=== PATIENT | female | born 1940 | race Caucasian/White ===

== ENCOUNTER → 2016-05-07 | Outpatient (CLI) | payer MEDICARE ==
[~2016-05-07] MED LIST: AMLO10TA2 PO; AMLO10TA4 PO; ASCO500C14 PO; ASP325T; ASP81CT PO; ASPI-875 PO; ASPI-983 PO; ATOR20TA66 PO; ATR20T PO; CARV3.122 PO; CLOP75TA PO; FAMO-119 PO; GLIP10TA13 PO; ISOS10TA8 PO; LEVO112T55 PO; LEVO125T6 PO; LVT.112T PO; METF-380 PO; METF-479 PO; METF1000 PO; MTF500T PO; NITR0.4T39 SL; OMEP-10 PO; OMG1KC PO; PNT40TEC PO; PRAV80TA2 PO; PRV20T PO; TICA90TA PO; VALS1TAB12 PO; VALS1TAB4 PO; VALS1TAB74 PO; VALS1TAB80 PO; VALS320T8 PO
--- OUTSIDE RECORDS SUMMARY | 2016-05-07 07:58 | XMS REPORT | Continuity of Care Document ---
Author Author [facility] Organization [facility] Address Unknown Phone Unavailable Allergies Active Description Code Type Severity Reaction Onset Reported/Identified Relationship to Patient Clinical Status Yes No Known Drug Allergies [id number] Drug Allergy Unknown N/ A 05/02/2008 Yes lisinopril [id number] Drug Allergy Unknown PT STATED SHE D 11/28/2014 Medications Problems Date Dx Coded Attending Type Code Diagnosis Diagnosed By 12/19/2008 Ot 786.2 08/12/2009 Ot 530.11 11/13/2011 Ot 244.9 HYPOTHYROIDISM NOS 11/13/2011 Ot 250.00 DIAB SMILEY WO COMPL, TYPE II OR UNSPEC TY 11/13/2011 Ot 272.4 HYPERLIPIDEMIA NEC/NOS 11/13/2011 Ot 410.71 AC MYOCARDIAL INFARCT,SUBENDO INFARCT,IN 11/13/2011 Ot 414.01 CORONARY ATHEROSCLEROSIS OF [place] CORON 11/13/2011 Ot 433.10 CAROTID ARTERY OCCLUSION W O CEREBRAL IN 11/13/2011 Ot 530.81 ESOPHAGEAL REFLUX 11/13/2011 Ot V03.82 PROPHYLACTIC VACC AGAINST STREPTOCOCCUS 11/13/2011 Ot V12.79 PERSONAL HISTORY OTH SPEC DIGESTIVE SYST 06/16/2013 FRANCINE BURRELL, WILLIAM R Ot 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, EXTRANODAL SOLID ORGA 06/16/2013 WILLIAM ESCAMILLA MD R Ot 244.9 HYPOTHYROIDISM NOS 06/16/2013 FRANCINE BURRELL, WILLIAM R Ot 368.8 VISUAL DISTURBANCES NEC 06/16/2013 FRANCINE BURRELL, WILLIAM R Ot 435.9 TRANS CEREB ISCHEMIA NOS 06/16/2013 WILLIAM ESCAMILLA MD Ot 716.90 ARTHROPATHY NOS-UNSPEC 06/16/2013 WILLIAM ESCAMILLA MD Ot 784.59 OTHER SPEECH DISTURBANCE 06/16/2013 WILLIAM ESCAMILLA MD R Ot V03.82 PROPHYLACTIC VACC AGAINST STREPTOCOCCUS 06/16/2013 WILLIAM ESCAMILLA MD R Ot V15.82 HISTORY OF TOBACCO USE 02/28/2014 Ot 786.2 02/28/2014 Ot 553.3 02/28/2014 Ot 562.10 02/28/2014 Ot 587 02/28/2014 Ot 790.6 02/28/2014 Ot 577.0 02/28/2014 Ot 401.9 02/28/2014 Ot 416.8 02/28/2014 Ot 698.9 02/28/2014 Ot 729.5 02/28/2014 Ot 729.81 02/28/2014 Ot 719.46 02/28/2014 ELIN BUI Ot 401.9 02/28/2014 ELIN BUI Ot 414.00 02/28/2014 ELIN BUI Ot 416.8 03/01/2014 FRANCINE BURRELL, WILLIAM R Ot 729.5 03/28/2014 FRANCINE BURRELL, WILLIAM R Ot 729.5 06/22/2014 FRANCINE BURRELL, WILLIAM R Ot 348.89 06/22/2014 FRANCINE BURRELL, WILLIAM R Ot 433.10 06/28/2014 Ot 784.0 07/06/2014 Ot 784.0 07/13/2014 FRANCINE BURRELL, WILLIAM R Ot 348.89 07/13/2014 FRANCINE BURRELL, WILLIAM R Ot 433.10 07/23/2014 FRANCINE BURRELL, WILLIAM R Ot 348.89 07/23/2014 FRANCINE BURRELL, WILLIAM R Ot 433.10 08/27/2014 EDOUARD BURRELL, PAULA Parrish Ot 272.4 08/27/2014 EDOUARD BURRELL, PAULA Parrish Ot 401.9 08/27/2014 EDOUARD BURRELL, PAULA Parrish Ot 414.00 08/27/2014 EDOUARD BURRELL, PAULA Parrish Ot 786.50 09/11/2014 EDOUARD BURRELL, PAULA Parrish Ot 272.4 09/11/2014 EDOUARD BURRELL, PAULA Parrish Ot 401.9 09/11/2014 EDOUARD BURRELL, PAULA Parrish Ot 414.00 09/11/2014 EDOUARD BURRELL, PAULA Parrish Ot 786.50 11/06/2014 LUCINDA BURRELL, DONATO Garrison Ot 244.9 HYPOTHYROIDISM NOS 11/06/2014 LUCINDA BURRELL, DONATO Garrison Ot 250.00 DIAB SMILEY WO COMPL, TYPE II OR UNSPEC TY 11/06/2014 LUCINDA BURRELL, DONATO Garrison Ot 414.00 CORON ATHEROSCLER NOS TYPE VESSEL, NATIV 11/06/2014 LUCINDA BURRELL, DONATO Garrison Ot 593.9 RENAL URETERAL DIS NOS 11/06/2014 LUCINDA BURRELL, DONATO Garrison Ot 719.41 JOINT PAIN-SHLDER 11/06/2014 DONATO JANE MD Ot 724.5 BACKACHE NOS 11/06/2014 LUCINDA BURRELL, DONATO Garrison Ot 786.50 CHEST PAIN NOS 11/06/2014 LUCINDA BURRELL, DONATO Garrison Ot V58.69 OTH MED,LT,CURRENT USE 11/23/2014 FRANCINE BURRELL, WILLIAM Garcia Ot 433.10 11/23/2014 FRANCINE BURRELL, WILLIAM R Ot 433.30 11/23/2014 FRANCINE BURRELL, WILLIAM R Ot 780.79 11/23/2014 FRANCINE BURRELL, WILLIAM R Ot 780.79 11/28/2014 Ot 553.3 11/28/2014 Ot 562.10 11/28/2014 Ot 587 11/28/2014 Ot 790.6 11/28/2014 Ot 577.0 11/28/2014 Ot 401.9 11/28/2014 Ot 416.8 11/28/2014 Ot 698.9 11/28/2014 Ot 729.5 11/28/2014 Ot 729.81 11/28/2014 Ot 719.46 11/28/2014 ELIN BUI Ot 401.9 11/28/2014 ELIN BUI Ot 414.00 11/28/2014 ELIN BUI Ot 416.8 11/28/2014 FRANCINE BURRELL, WILLIAM R Ot 729.5 11/28/2014 Ot 784.0 11/28/2014 FRANCINE BURRELL, WILLIAM R Ot 348.89 11/28/2014 FRANCINE BURRELL, WILLIAM R Ot 433.10 11/28/2014 EDOUARD BURRELL, PAULA Parrish Ot 272.4 11/28/2014 EDOUARD BURRELL, PAULA Parrish Ot 401.9 11/28/2014 EDOUARD BURRELL, PAULA Parrish Ot 414.00 11/28/2014 PAULA NUNN MD Ot 786.50 11/28/2014 WILLIAM ESCAMILLA MD R Ot 433.10 11/28/2014 WILLIAM ESCAMILLA MD R Ot 433.30 11/28/2014 FRANCINE BURERLL WILLIAM R Ot 780.79 11/28/2014 FRANCINE BURRELL, WILLIAM R Ot 780.79 11/28/2014 PAULA NUNN MD Ot 244.9 HYPOTHYROIDISM NOS 11/28/2014 PAULA NUNN MD Ot 250.00 DIAB SMILEY WO COMPL, TYPE II OR UNSPEC TY 11/28/2014 PAULA NUNN MD Ot 272.4 HYPERLIPIDEMIA NEC/NOS 11/28/2014 PAULA NUNN MD Ot 401.9 HYPERTENSION NOS 11/28/2014 PAULA NUNN MD Ot 414.01 CORONARY ATHEROSCLEROSIS OF [place] CORON 11/28/2014 PAULA NUNN MD Ot 786.50 CHEST PAIN NOS 11/28/2014 PAULA NUNN MD Ot V58.69 OT MED,LT,CURRENT USE 11/29/2014 WILLIAM ESCAMILLA MD R Ot 433.10 11/29/2014 WILLIAM ESCAMILLA MD R Ot 433.30 11/29/2014 WILLIAM ESCAMILLA MD R Ot 780.79 11/29/2014 WILLIAM ESCAMILLA MD R Ot 780.79 02/04/2015 Ot 401.9 02/04/2015 Ot 416.8 02/04/2015 Ot 698.9 02/04/2015 Ot 729.5 02/04/2015 Ot 729.81 02/04/2015 Ot 719.46 02/04/2015 ELIN BUI Ot 401.9 02/04/2015 ELIN BUI Ot 414.00 02/04/2015 ELIN BUI Ot 416.8 02/04/2015 WILLIAM ESCAMILLA MD R Ot 729.5 02/04/2015 Ot 784.0 02/04/2015 WILLIAM ESCAMILLA MD R Ot 348.89 02/04/2015 WILLIAM ESCAMILLA MD R Ot 433.10 02/04/2015 PAULA NUNN MD Ot 272.4 02/04/2015 PAULA NUNN MD Ot 401.9 02/04/2015 PAULA NUNN MD J Ot 414.00 02/04/2015 EDOUARD BURRELL, PAULA J Ot 786.50 02/04/2015 FRANCINE BURRELL, WILLIAM R Ot 433.10 02/04/2015 FRANCINE BURRELL, WILLIAM R Ot 433.30 02/04/2015 FRANCINE BURRELL, WILLIAM R Ot 780.79 02/04/2015 FRANCINE BURRELL, WILLIAM R Ot 780.79 03/11/2015 Ot 401.9 03/11/2015 Ot 416.8 03/11/2015 Ot 698.9 03/11/2015 Ot 729.5 03/11/2015 Ot 729.81 03/11/2015 Ot 719.46 03/11/2015 ELIN BUI Ot 401.9 03/11/2015 ELIN BUI Ot 414.00 03/11/2015 ELIN BUI Ot 416.8 03/11/2015 FRANCINE BURRELL, WILLIAM R Ot 729.5 03/11/2015 Ot 784.0 03/11/2015 FRANCINE BURRELL, WILLIAM R Ot 348.89 03/11/2015 FRANCINE BURRELL, WILLIAM R Ot 433.10 03/11/2015 PAULA NUNN MD Ot 272.4 03/11/2015 EDOUARD BURRELL, PAULA Parrish Ot 401.9 03/11/2015 EDOUARD BURRELL, PAULA J Ot 414.00 03/11/2015 EDOUARD BURRELL, PAULA J Ot 786.50 03/11/2015 FRANCINE BURRELL, WILLIAM R Ot 433.10 03/11/2015 FRANCINE BURRELL, WILLIAM R Ot 433.30 03/11/2015 FRANCINE BURRELL, WILLIAM R Ot 780.79 03/11/2015 FRANCINE BURRELL, WILLIAM R Ot 780.79 04/03/2015 FRANCINE BURRELL, WILLIAM R Ot R05 04/04/2015 FRANCINE BURRELL, WILLIAM R Ot R05 05/20/2015 PAULA NUNN MD Ot E03.9 HYPOTHYROIDISM, UNSPECIFIED 05/20/2015 EDOUARD BURRELL, PAULA Parrish Ot E11.9 TYPE 2 DIABETES MELLITUS WITHOUT COMPLIC 05/20/2015 PAULA NUNN MD Ot E78.5 HYPERLIPIDEMIA, UNSPECIFIED 05/20/2015 PAULA NUNN MD Ot E87.1 HYPO-OSMOLALITY AND HYPONATREMIA 05/20/2015 PAULA NUNN MD Ot I10 ESSENTIAL (PRIMARY) HYPERTENSION 05/20/2015 PAULA NUNN MD Ot I21.4 NON-ST ELEVATION (NSTEMI) MYOCARDIAL INF 05/20/2015 PAULA NUNN MD Ot I25.110 ATHSCL HEART DISEASE OF [place] COR ART W 05/20/2015 PAULA NUNN MD Ot I46.2 CARDIAC ARREST DUE TO UNDERLYING CARDIAC 05/20/2015 PAULA NUNN MD Ot I47.2 VENTRICULAR TACHYCARDIA 05/20/2015 PAULA NUNN MD Ot I48.91 UNSPECIFIED ATRIAL FIBRILLATION 05/20/2015 PAULA NUNN MD Ot I49.01 VENTRICULAR FIBRILLATION 05/20/2015 PAULA NUNN MD Ot I65.23 OCCLUSION AND STENOSIS OF [place] 05/20/2015 PAULA NUNN MD Ot K21.9 GASTRO-ESOPHAGEAL REFLUX DISEASE WITHOUT 05/20/2015 PAULA NUNN MD Ot N17.9 ACUTE KIDNEY FAILURE, UNSPECIFIED 05/27/2015 Ot 401.9 05/27/2015 Ot 416.8 05/27/2015 Ot 698.9 05/27/2015 Ot 729.5 05/27/2015 Ot 729.81 05/27/2015 Ot 719.46 05/27/2015 ELIN BUI Ot 401.9 05/27/2015 ELIN BUI Ot 414.00 05/27/2015 ELIN BUI Ot 416.8 05/27/2015 WILLIAM ESCAMILLA MD R Ot 729.5 05/27/2015 Ot 784.0 05/27/2015 FRANCINE BURRELL, WILLIAM R Ot 348.89 05/27/2015 FRANCINE BURRELL, WILLIAM R Ot 433.10 05/27/2015 PAULA NUNN MD Ot 272.4 05/27/2015 PAULA NUNN MD Ot 401.9 05/27/2015 PAULA NUNN MD Ot 414.00 05/27/2015 PAULA NUNN MD Ot 786.50 05/27/2015 WILLIAM ESCAMILLA MD R Ot 433.10 05/27/2015 FRANCINE BURRELL, WILLIAM R Ot 433.30 05/27/2015 FRANCINE BURRELL, WILLIAM R Ot 780.79 05/27/2015 FRANCINE BURRELL, WILLIAM R Ot 780.79 05/27/2015 FRANCINE BURRELL, WILLIAM R Ot R05 06/12/2015 EDOUARD BURRELL, PAULA Parrish Ot E03.9 06/12/2015 EDOUARD BURRELL, PAULA Parrish Ot E11.9 06/12/2015 EDOUARD BURRELL, PAULA Parrish Ot E78.5 06/12/2015 EDOUARD BURRELL, PAULA Parrish Ot E87.1 06/12/2015 EDOUARD BURRELL, PAULA Parrish Ot I10 06/12/2015 EDOUARD BURRELL, PAULA Parrish Ot I21.4 06/12/2015 EDOUARD BURRELL, PAULA Parrish Ot I25.110 06/12/2015 PAULA NUNN MD Ot I46.2 06/12/2015 PAULA NUNN MD Ot I47.2 06/12/2015 PAULA NUNN MD Ot I48.91 06/12/2015 PAULA NUNN MD Ot I49.01 06/12/2015 EDOUARD BURRELL, PAULA Parrish Ot I65.23 06/12/2015 PAULA NUNN MD Ot K21.9 06/12/2015 EDOAURD BURRELL, PAULA Parrish Ot N17.9 06/18/2015 STEVIE LOZANO DO Ot E66.9 06/18/2015 STEVIE LOZANO DO Ot R05 06/26/2015 STEVIE LOZANO DO Ot E66.9 06/26/2015 STEVIE LOZANO DO Ot R05 03/26/2016 Ot 698.9 PRURITIC DISORDER NOS 03/26/2016 Ot 729.5 PAIN IN LIMB 03/26/2016 Ot 729.81 SWELLING OF LIMB 03/26/2016 Ot 719.46 JOINT PAIN-L/LEG 03/26/2016 ELIN BUI Ot 401.9 HYPERTENSION NOS 03/26/2016 ELIN BUI Ot 414.00 CORON ATHEROSCLER NOS TYPE VESSEL, NATIV 03/26/2016 ELIN BUI Ot 416.8 CHR PULMON HEART DIS NEC 03/26/2016 WILLIAM ESCAMILLA MD Ot 729.5 PAIN IN LIMB 03/26/2016 Ot 784.0 HEADACHE 03/26/2016 WILLIAM ESCAMILLA MD Ot 348.89 OTHER CONDITIONS OF BRAIN 03/26/2016 WILLIAM ESCAMILLA MD Ot 433.10 CAROTID ARTERY OCCLUSION W O CEREBRAL IN 03/26/2016 PAULA NUNN MD Ot 272.4 HYPERLIPIDEMIA NEC/NOS 03/26/2016 PAULA NUNN MD Ot 401.9 HYPERTENSION NOS 03/26/2016 PAULA NUNN MD Ot 414.00 CORON ATHEROSCLER NOS TYPE VESSEL, NATIV 03/26/2016 PAULA NUNN MD Ot 786.50 CHEST PAIN NOS 03/26/2016 WILLIAM ESCAMILLA MD Ot 433.10 CAROTID ARTERY OCCLUSION W O CEREBRAL IN 03/26/2016 WILLIAM ESCAMILLA MD Ot 433.30 MULT BILTRAL ARTERY OCCLUSION WO CEREBRA 03/26/2016 WILLIAM ESCAMILLA MD Ot 780.79 OTH MALAISE FATIGUE 03/26/2016 WILLIAM ESCAMILLA MD Ot 780.79 OTH MALAISE FATIGUE 03/26/2016 WILLIAM ESCAMILLA MD Ot R05 COUGH 03/26/2016 STEVIE LOZANO DO Ot E66.9 OBESITY, UNSPECIFIED 03/26/2016 STEVIE LOZANO DO Ot R05 COUGH 03/27/2016 Ot 698.9 PRURITIC DISORDER NOS 03/27/2016 Ot 729.5 PAIN IN LIMB 03/27/2016 Ot 729.81 SWELLING OF LIMB 03/27/2016 Ot 719.46 JOINT PAIN-L/LEG 03/27/2016 ELIN BUI Ot 401.9 HYPERTENSION NOS 03/27/2016 ELIN BUI Ot 414.00 CORON ATHEROSCLER NOS TYPE VESSEL, NATIV 03/27/2016 ELNI BUI Ot 416.8 CHR PULMON HEART DIS NEC 03/27/2016 WILLIAM ESCAMILLA MD Ot 729.5 PAIN IN LIMB 03/27/2016 Ot 784.0 HEADACHE 03/27/2016 WILLIAM ESCAMILLA MD Ot 348.89 OTHER CONDITIONS OF BRAIN 03/27/2016 SEGLIE MD, WILLIAM R Ot 433.10 CAROTID ARTERY OCCLUSION W O CEREBRAL IN 03/27/2016 PAULA NUNN MD Ot 272.4 HYPERLIPIDEMIA NEC/NOS 03/27/2016 PAULA NUNN MD Ot 401.9 HYPERTENSION NOS 03/27/2016 PAULA NUNN MD Ot 414.00 CORON ATHEROSCLER NOS TYPE VESSEL, NATIV 03/27/2016 PAULA NUNN MD Ot 786.50 CHEST PAIN NOS 03/27/2016 WILLIAM ESCAMILLA MD R Ot 433.10 CAROTID ARTERY OCCLUSION W O CEREBRAL IN 03/27/2016 WILLIAM ESCAMILLA MD Ot 433.30 MULT BILTRAL ARTERY OCCLUSION WO CEREBRA 03/27/2016 WILLIAM ESCAMILLA MD Ot 780.79 OTH MALAISE FATIGUE 03/27/2016 WILLIAM ESCAMILLA MD Ot 780.79 OTH MALAISE FATIGUE 03/27/2016 WILLIAM ESCAMILLA MD R Ot R05 COUGH 03/27/2016 STEVIE LOZANO DO Ot E66.9 OBESITY, UNSPECIFIED 03/27/2016 STEVIE LOZANO DO Ot R05 COUGH 03/27/2016 WILLIAM ESCAMILLA MD R Ot E03.9 HYPOTHYROIDISM, UNSPECIFIED 03/27/2016 WILLIAM ESCAMILLA MD R Ot E03.9 HYPOTHYROIDISM, UNSPECIFIED 03/30/2016 WILLIAM ESCAMILLA MD R Ot R10.2 PELVIC AND PERINEAL PAIN 04/01/2016 WILLIAM ESCAMILLA MD R Ot E03.9 HYPOTHYROIDISM, UNSPECIFIED 04/01/2016 WILLIAM ESCAMILLA MD R Ot R10.2 PELVIC AND PERINEAL PAIN 04/16/2016 WILLIAM ESCAMILLA MD R Ot E03.9 HYPOTHYROIDISM, UNSPECIFIED 04/20/2016 WILLIAM ESCAMILLA MD R Ot R10.2 PELVIC AND PERINEAL PAIN 04/22/2016 WILLIAM ESCAMILLA MD Ot R10.2 PELVIC AND PERINEAL PAIN Procedures Code Description Performed By Performed On 88.53 LT HEART ANGIOCARDIOGRAM 11/12/2011 88.56 CORONAR ARTERIOGR-2 CATH 11/12/2011 [id number] DILATION OF 1 COR ART WITH DRUG-ELUT INT 05/17/2015 [id number] MEASURE OF CARDIAC SAMPL PRESSURE, L H 05/17/2015 [id number] FLUOROSCOPY OF MULT COR ART USING L OSM 05/17/2015 [id number] FLUOROSCOPY OF LEFT HEART USING LOW OSMO 05/17/2015 Results Test Result Range THYROID STIMULATING HORMONE - 03/26/16 12:50 THYROID STIMULATING HORMONE 1.11 u[iU]/mL 0.35-4.94 Encounters ACCT No. Visit Date/Time Discharge Status Pt. Type Provider Facility Loc./Unit Complaint [id number] 05/17/2015 14:14:00 2015 11:20:00 DIS Inpatient PAULA NUNN MD [facility] CSD CARDIAC ARREST, VENTRICULAR FIBRILLATION [id number] 11/28/2014 10:41:00 2014 20:45:00 DIS Outpatient PAULA NUNN MD [facility] CATH CP,HTN,HLP [id number] 11/06/2014 14:26:00 2014 17:07:00 DIS Emergency DONATO JANE MD [facility] ER CHEST/BACK/LEFT ARM PAIN [id number] 10/31/2014 08:24:00 2014 23:59:59 CLS Outpatient WILLIAM ESCAMILLA MD [facility] RAD SUDDEN ONSET MASSIVE FATIGUE [id number] 10/30/2014 08:52:00 2014 23:59:59 CLS Outpatient WILLIAM ESCAMILLA MD [facility] CARD SUDDEN ONSET MASSIVE FATIGUE [id number] 07/30/2014 07:41:00 2014 23:59:59 CLS Outpatient PAULA NUNN MD [facility] CARD CAD,CP,HTN [id number] 06/20/2014 10:59:00 2014 23:59:59 CLS Outpatient WILLIAM ESCAMILLA MD [facility] RAD [id number] 02/28/2014 14:10:00 2013 23:59:59 CLS Outpatient WILLIAM ESCAMILLA MD [facility] RAD SUDDEN ONSET LT INGUAL AND FEMORAL IGUNAL AREA [id number] 08/22/2013 08:38:00 2013 23:59:59 CLS Outpatient TAWNY PA, ELIN K [facility] CARD CAD,DM,HLP,HTN [id number] 06/13/2013 19:45:00 2013 10:33:00 DIS Inpatient FRANCINE BURRELL, WILLIAM Garcia [facility] 4TH TIA [id number] 05/07/2016 07:54:00 ACT Outpatient EDOUARD BURRELL, PAULA Parrish [facility] CARD CAD,HTN,HLP [id number] 03/27/2016 12:19:00 ACT Outpatient FRANCINE BURRELL, WILLIAM Garcia [facility] RAD PELVIC PAIN IN FEMALE [id number] 03/26/2016 12:39:00 ACT Outpatient WILLIAM ESCAMILLA MD [facility] LAB PELVIC PAIN [id number] 05/27/2015 09:20:00 ACT Outpatient STEVIE LOZANO DO [facility] RAD COUGHING [id number] 03/11/2015 10:31:00 ACT Outpatient WILLIAM ESCAMILLA MD [facility] RAD COUGH [id number] 06/13/2014 10:42:00 Document Registration [id number] 02/28/2014 14:12:00 Document Registration [id number] 02/28/2014 14:09:00 Document Registration [id number] 02/28/2014 14:09:00 Document Registration [id number] 11/12/2011 13:45:00 Document Registration [id number] 08/03/2011 07:59:00 Document Registration [id number] 06/24/2011 12:38:00 Document Registration [id number] 02/16/2011 15:02:00 Document Registration [id number] 08/28/2010 13:22:00 Document Registration [id number] 08/14/2009 09:57:00 Document Registration [id number] 08/12/2009 11:32:00 Document Registration [id number] 07/31/2009 15:02:00 Document Registration [id number] 12/18/2008 15:00:00 Document Registration [id number] 12/18/2008 10:22:00 Document Registration
--- NOTE | 2016-05-08 10:23 | ECHOCARDIOGRAPHY REPORT ---
PROCEDURE PHYSICIAN: PAULA NUNN DATE OF PROCEDURE: 05/07/2016 TWO DIMENSIONAL ECHOCARDIOGRAM REPORT PRIMARY PHYSICIAN: OTHER PHYSICIAN: REFERRING PHYSICIAN: Dr. Ashley ORDERING PHYSICIAN: INDICATION FOR THE PROCEDURE: Coronary artery disease, hypertension MEASUREMENTS DERIVED VALUES LV DIAMETER (LAX) NORMALS NORMALS Diastolic 5.1 (3.6-5.2) Eject. Fract. 60% (60%+/-6%) Systolic (2.3-3.9) Diastolic Vol. % Shortening (0.22-0.42) Systolic Vol. Aortic Root IVS THICKNESS Diastolic 1. (0.6-1.1) LVPW THICKNESS Diastolic 1. (0.6-1.1) LA DIAMETER Systolic 3.1 (2.1-3.7) FINDINGS: 1. Technical quality is good. 2. The left ventricle is normal in size with normal contractility. Systolic function appeared to be normal. Estimated ejection fraction 60%. 3. The left atrium is normal in size. No clot or thrombus were seen within the left atrium. 4. The right atrium and right ventricle are normal in size. No clot or thrombus were seen within the right side. 5. Mitral valve is normal in morphology with mild mitral regurgitation noted by color Doppler flow. No mitral valve prolapse. No mitral valve stenosis. 6. Aortic valve is trileaflet with normal opening and closing pattern. No significant aortic valve stenosis or regurgitation was seen. 7. Tricuspid valve is normal in morphology with mild tricuspid regurgitation noted by color Doppler flow. Doppler across tricuspid valve estimated pulmonary artery pressure of 35+ right atrial pressure. 8. Pulmonic valve is functioning normally. 9. No pericardial effusion. CONCLUSION: 1. Normal left ventricular size and systolic function. Estimated ejection fraction 60%. 2. Mild mitral and tricuspid regurgitation. 3. Estimated pulmonary artery pressure of 40 to 45 mmHg Job ID: [id number] Dictated Date: 05/07/2016 19:18:59 Chief Librarian Work With Blind Date: 05/08/2016 10:19:06 / theodora
== END ==
LOC: CARD 07:54
PROVIDERS: ATTEND Internal Medicine Cardiovascular Disease
DX: I25.10 Atherosclerotic heart disease of native coronary artery without angina pectoris (principal); I65.23 Occlusion and stenosis of bilateral carotid arteries; E78.2 Mixed hyperlipidemia; I10 Essential (primary) hypertension; I27.2 Other secondary pulmonary hypertension
CPT/HCPCS: 93306

== ENCOUNTER → 2016-05-29 | Outpatient (CLI) | payer MEDICARE ==
--- OUTSIDE RECORDS SUMMARY | 2016-05-29 10:29 | XMS REPORT | Continuity of Care Document ---
Author Author [facility] Organization [facility] Address Unknown Phone Unavailable Allergies Active Description Code Type Severity Reaction Onset Reported/Identified Relationship to Patient Clinical Status Yes No Known Drug Allergies [id number] Drug Allergy Unknown N/ A 05/02/2008 Yes lisinopril [id number] Drug Allergy Unknown PT STATED SHE D 11/28/2014 Medications Problems Date Dx Coded Attending Type Code Diagnosis Diagnosed By 12/19/2008 Ot 786.2 08/12/2009 Ot 530.11 11/13/2011 Ot 244.9 HYPOTHYROIDISM NOS 11/13/2011 Ot 250.00 DIAB SMILEY WO COMPL, TYPE II OR UNSPEC TY 11/13/2011 Ot 272.4 HYPERLIPIDEMIA NEC/NOS 11/13/2011 Ot 410.71 AC MYOCARDIAL INFARCT,SUBENDO INFARCT,IN 11/13/2011 Ot 414.01 CORONARY ATHEROSCLEROSIS OF [place] CORON 11/13/2011 Ot 433.10 CAROTID ARTERY OCCLUSION [...] ESCAMILLA MD R Ot 433.30 11/28/2014 FRANCINE BURRELL WILLIAM R Ot 780.79 11/28/2014 FRANCINE BURRELL, WILLIAM R Ot 780.79 11/28/2014 PAULA NUNN MD Ot 244.9 HYPOTHYROIDISM NOS 11/28/2014 PAULA NUNN MD Ot 250.00 DIAB SMILEY WO COMPL, TYPE II OR UNSPEC TY 11/28/2014 PAULA NUNN MD Ot 272.4 HYPERLIPIDEMIA NEC/NOS 11/28/2014 PAULA NUNN MD Ot 401.9 HYPERTENSION NOS 11/28/2014 PAULA NUNN MD Ot 414.01 CORONARY ATHEROSCLEROSIS OF [place] CORON 11/28/2014 PAULA NUNN MD Ot 786.50 [...] MD Ot I25.110 ATHSCL HEART DISEASE OF [place] COR ART W 05/20/2015 PAULA NUNN MD [...] 06/12/2015 PAULA NUNN MD Ot K21.9 06/12/2015 EDOUARD BURRELL, PAULA Parrish Ot N17.9 06/18/2015 STEVIE [...] CORON ATHEROSCLER NOS TYPE VESSEL, NATIV 03/27/2016 ELIN BUI Ot 416.8 CHR PULMON HEART [...] O CEREBRAL IN 03/27/2016 WILLIAM ESCAMILLA MD R Ot 433.30 MULT BILTRAL ARTERY OCCLUSION WO CEREBRA 03/27/2016 WILLIAM ESCAMILLA MD R Ot 780.79 OTH MALAISE FATIGUE 03/27/2016 WILLIAM ESCAMILLA MD R Ot 780.79 OTH MALAISE FATIGUE 03/27/2016 WILLIAM [...] AND PERINEAL PAIN 04/22/2016 WILLIAM ESCAMILLA MD R Ot R10.2 PELVIC AND PERINEAL PAIN 05/08/2016 PAUAL NUNN MD Ot E78.2 MIXED HYPERLIPIDEMIA 05/08/2016 PAULA NUNN MD Ot I10 ESSENTIAL (PRIMARY) HYPERTENSION 05/08/2016 PAULA NUNN MD Ot I25.10 ATHSCL HEART DISEASE OF [place] CORONARY 05/08/2016 PAULA NUNN MD, Ot I27.2 OTHER SECONDARY PULMONARY HYPERTENSION 05/08/2016 PAULA NUNN MD Ot I65.23 OCCLUSION AND STENOSIS OF [place]AL [place] 05/08/2016 PAULA NUNN MD Ot E78.2 MIXED HYPERLIPIDEMIA 05/08/2016 PAULA NUNN MD Ot I10 ESSENTIAL (PRIMARY) HYPERTENSION 05/08/2016 PAULA NUNN MD Ot I25.10 ATHSCL HEART DISEASE OF [place] CORONARY 05/08/2016 PAULA NUNN MD, Ot I27.2 OTHER SECONDARY PULMONARY HYPERTENSION 05/08/2016 PAULA NUNN MD, Ot I65.23 OCCLUSION AND STENOSIS OF [place]AL [place] Procedures Code Description Performed By Performed On 88.53 LT HEART ANGIOCARDIOGRAM 11/12/2011 88.56 CORONAR ARTERIOGR-2 CATH 11/12/2011 [id number] DILATION OF 1 COR ART WITH DRUG-ELUT INT 05/17/2015 [id number] MEASURE OF CARDIAC SAMPL PRESSURE, L H 05/17/2015 [id number] FLUOROSCOPY OF MULT COR ART USING L OSM 05/17/2015 [id number] FLUOROSCOPY OF LEFT HEART USING LOW OSMO 05/17/2015 Results Test Result Range THYROID STIMULATING HORMONE - 03/26/16 12:50 THYROID STIMULATING HORMONE 1.11 u[iU]/mL 0.35-4.94 Encounters ACCT No. Visit Date/Time Discharge Status Pt. Type Provider Facility Loc./Unit Complaint [id number] 05/17/2015 14:14:00 2015 11:20:00 DIS Inpatient PAULA NUNN MD [facility] CSD CARDIAC ARREST, VENTRICULAR FIBRILLATION [id number] 11/28/2014 10:41:00 2014 20:45:00 DIS Outpatient PAULA NUNN MD [facility] CATH CP,HTN,HLP [id number] 11/06/2014 14:26:00 2014 17:07:00 DIS Emergency DONATO JANE MD [facility] ER CHEST/BACK/LEFT ARM PAIN [id number] 10/31/2014 08:24:00 2014 23:59:59 CLS Outpatient WILLIAM ESCAMILLA MD [facility] RAD SUDDEN ONSET MASSIVE FATIGUE [id number] 10/30/2014 08:52:00 2014 23:59:59 CLS Outpatient WILLIAM ESCAMILLA MD [facility] CARD SUDDEN ONSET MASSIVE FATIGUE [id number] 07/30/2014 07:41:00 2014 23:59:59 CLS Outpatient PAULA NUNN MD [facility] CARD CAD,CP,HTN [id number] 06/20/2014 10:59:00 2014 23:59:59 CLS Outpatient WILLIAM ESCAMILLA MD [facility] RAD [id number] 02/28/2014 14:10:00 2013 23:59:59 CLS Outpatient WILLIAM ESCAMILLA MD [facility] RAD SUDDEN ONSET LT INGUAL AND FEMORAL IGUNAL AREA [id number] 08/22/2013 08:38:00 2013 23:59:59 CLS Outpatient ELIN BUI [facility] CARD CAD,DM,HLP,HTN [id number] 06/13/2013 19:45:00 2013 10:33:00 DIS Inpatient WILLIAM ESCAMILLA MD [facility] 4TH TIA [id number] 05/29/2016 11:15:00 PEN Preadmit SIVAKUMAR SUTHERLAND APRN [facility] RAD LUNG NODULE [id number] 05/07/2016 07:54:00 ACT Outpatient PAULA NUNN MD [facility] CARD CAD,HTN,HLP [id number] 03/27/2016 12:19:00 ACT Outpatient WILLIAM ESCAMILLA MD [facility] RAD PELVIC PAIN IN FEMALE [id number] 03/26/2016 12:39:00 ACT Outpatient WILLIAM ESCAMILLA MD [facility] LAB PELVIC PAIN [id number] 05/27/2015 09:20:00 ACT Outpatient STEVIE LOZANO DO [facility] RAD COUGHING [id number] 03/11/2015 10:31:00 ACT Outpatient WILLIAM ESCAMILLA MD [facility] RAD COUGH [id number] 06/13/2014 10:42:00 Document Registration [id number] 02/28/2014 14:12:00 Document Registration [id number] 02/28/2014 14:09:00 Document Registration [id number] 02/28/2014 14:09:00 Document Registration [id number] 11/12/2011 13:45:00 Document Registration [id number] 08/03/2011 07:59:00 Document Registration [id number] 06/24/2011 12:38:00 Document Registration [id number] 02/16/2011 15:02:00 Document Registration [id number] 08/28/2010 13:22:00 Document Registration [id number] 08/14/2009 09:57:00 Document Registration [id number] 08/12/2009 11:32:00 Document Registration [id number] 07/31/2009 15:02:00 Document Registration [id number] 12/18/2008 15:00:00 Document Registration [id number] 12/18/2008 10:22:00 Document Registration
--- NOTE | 2016-05-29 11:42 | Diagnostic Imaging Report ---
PROCEDURE: CT chest without contrast. TECHNIQUE: Multiple contiguous axial images were obtained through the chest without the use of intravenous contrast. INDICATION: Followup lung nodule. Comparison to HRCT protocol study on 05/27/2015, and 07/20/2008, CT chest is reviewed. FINDINGS: There is a 5-mm pulmonary nodule in the posterior right lung base and subpleural nodular densities up to 5 mm on the left side stable from 2008 exam compatible with benign etiology. Other nodular densities along the left major fissure also seen up to 7 mm at the level of the hilum on the left side, axial image 25 also stable from 2009. There is no significant consolidation, suspicious nodule, or mass lesion seen. The heart size is normal. No pericardial effusion. No pleural effusion. The thoracic aorta is normal in caliber. No mediastinal mass or lymphadenopathy. The farooq are not opacified on this unenhanced exam with no obvious hilar mass. Sections of the upper abdomen demonstrate pneumobilia. This could be related to recent ERCP or prior sphincterotomy. This is similar to 05/27/2015, exam. The osseous structures demonstrate mild degenerative changes. IMPRESSION: 1. There are subcentimeter nodules in the lung bases and along the left major fissure stable from 2008 exam compatible with benign etiology. No significant consolidation or suspicious mass. 2. Pneumobilia similar to the prior exam. This could relate to prior sphincterotomy or other biliary procedure. Correlate with patient's history. Dictated by: Dictated on workstation # [id number]
== END ==
LOC: RAD 10:24
PROVIDERS: ATTEND Nurse Practitioner Family
DX: R91.1 Solitary pulmonary nodule (principal)
CPT/HCPCS: 71250

== ENCOUNTER → 2016-10-15 | Outpatient (CLI) | payer MEDICARE ==
--- NOTE | 2016-10-15 17:00 | Diagnostic Imaging Report ---
PROCEDURE: CT abdomen and pelvis without contrast. TECHNIQUE: Multiple contiguous axial images were obtained through the abdomen and pelvis without the use of intravenous contrast. INDICATION: Pelvic pain. FINDINGS: The lung bases appear clear. The liver demonstrates biliary air. There is air also seen in the CBD. No associated evidence of inflammatory changes or mass. Correlate for possible prior sphincterotomy. The spleen is not enlarged. The adrenal glands and the pancreas appear unremarkable. There is severe atrophy of the left kidney. The right kidney demonstrates no hydronephrosis. There are no urinary tract stones. Multiple calcifications in the pelvis are compatible with phleboliths. The abdominal aorta is normal in caliber. No para-aortic significantly enlarged lymph node is seen. There is no bowel obstruction. The appendix appears normal. No significant free fluid or fluid collection in the abdomen or pelvis is seen. There is diastasis of the recti and abdominal wall laxity with no hernia seen. There is colonic diverticulosis. No diverticulitis. Degenerative changes in the lumbar spine, SI joints, and the hip joints are noted. IMPRESSION: 1. Diverticulosis. No diverticulitis. 2. Pneumobilia, presumably related to prior sphincterotomy or other biliary procedure. Correlate with patient's history. 3. Marked severe atrophy of the left kidney. Dictated by: Dictated on workstation # [id number]
== END ==
LOC: RAD 08:07
PROVIDERS: ATTEND Family Medicine
DX: K57.30 Diverticulosis of large intestine without perforation or abscess without bleeding (principal); N26.1 Atrophy of kidney (terminal); K83.8 Other specified diseases of biliary tract; M25.552 Pain in left hip
CPT/HCPCS: 74176

== ENCOUNTER 2017-02-15 13:07 | Emergency (ER) | payer MEDICARE ==
[~2017-02-15] VITALS: Ht 154.9 cm; Wt 79.4 kg
--- OUTSIDE RECORDS SUMMARY | 2017-02-15 13:16 | XMS REPORT | Continuity of Care Document ---
Author Author [facility] Organization [facility] Address Unknown Phone Unavailable Allergies Active Description Code Type Severity Reaction Onset Reported/Identified Relationship to Patient Clinical Status Yes No Known Drug Allergies [id number] Drug Allergy Unknown N/ A 05/02/2008 Yes lisinopril [id number] Drug Allergy Unknown PT STATED SHE D 11/28/2014 Medications Problems Date Dx Coded Attending Type Code Diagnosis Diagnosed By 12/19/2008 Ot 786.2 08/12/2009 Ot 530.11 11/13/2011 Ot 244.9 HYPOTHYROIDISM NOS 11/13/2011 Ot 250.00 DIAB SMILEY WO COMPL, TYPE II OR UNSPEC TY 11/13/2011 Ot 272.4 HYPERLIPIDEMIA NEC/NOS 11/13/2011 Ot 410.71 AC MYOCARDIAL INFARCT,SUBENDO INFARCT,IN 11/13/2011 Ot 414.01 CORONARY ATHEROSCLEROSIS OF [place] CORON 11/13/2011 Ot 433.10 CAROTID ARTERY OCCLUSION W O CEREBRAL IN 11/13/2011 Ot 530.81 ESOPHAGEAL REFLUX 11/13/2011 Ot V03.82 PROPHYLACTIC VACC AGAINST STREPTOCOCCUS 11/13/2011 Ot V12.79 PERSONAL HISTORY OTH SPEC DIGESTIVE SYST 06/16/2013 FRANCINE BURRELL, WILLIAM R Ot 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, EXTRANODAL SOLID ORGA 06/16/2013 FRANCINE BURRELL, WILLIAM R Ot 244.9 HYPOTHYROIDISM NOS 06/16/2013 FRANCINE BURRELL, WILLIAM R Ot 368.8 VISUAL DISTURBANCES NEC 06/16/2013 FRANCINE BURRELL, WILLIAM R Ot 435.9 TRANS CEREB ISCHEMIA NOS 06/16/2013 WILLIAM ESCAMILLA MD R Ot 716.90 ARTHROPATHY NOS-UNSPEC 06/16/2013 WILLIAM ESCAMILLA [...] JANE MD Ot 724.5 BACKACHE NOS 11/06/2014 DONATO JANE MD Ot 786.50 CHEST PAIN NOS 11/06/2014 DONATO JANE MD Ot V58.69 OTH MED,LT,CURRENT USE 11/23/2014 FRANCINE [...] ESCAMILLA MD R Ot 433.30 11/28/2014 FRANCINE BURRELL, WILLIAM R Ot 780.79 11/28/2014 FRANCINE BURRELL, WILLIAM R Ot 780.79 11/28/2014 PAULA NUNN MD Ot 244.9 HYPOTHYROIDISM NOS 11/28/2014 PAULA NUNN MD Ot 250.00 DIAB SMILEY WO COMPL, TYPE II OR UNSPEC TY 11/28/2014 PAULA NUNN MD Ot 272.4 HYPERLIPIDEMIA NEC/NOS 11/28/2014 PAULA NUNN MD Ot 401.9 HYPERTENSION NOS 11/28/2014 PAULA NUNN MD Ot 414.01 CORONARY ATHEROSCLEROSIS OF [place] CORON 11/28/2014 PAULA NUNN MD Ot 786.50 [...] 02/04/2015 PAULA NUNN MD Ot 401.9 02/04/2015 HAYDER NUNN MDHAR J Ot 414.00 02/04/2015 EDOUARD BURRELL, PAULA [...] Parrish Ot 401.9 03/11/2015 EDOUARD BURRELL, PAULA Parrish Ot 414.00 03/11/2015 EDOUARD BURRELL, PAULA J Ot 786.50 03/11/2015 FRANCINE BURRELL, WILLIAM R Ot 433.10 03/11/2015 FRANCINE BURRELL, WILLIAM R Ot 433.30 03/11/2015 FRANCINE BURRELL, WILLIAM R Ot 780.79 03/11/2015 FRANCINE BURRELL, WILLIAM R Ot 780.79 04/03/2015 FRANCINE BURRELL, WILLIAM R Ot R05 04/04/2015 FRANCINE BURRELL, WILLIAM R Ot R05 05/20/2015 PAULA NUNN MD Ot E03.9 HYPOTHYROIDISM, UNSPECIFIED 05/20/2015 EDOUARD BURRELL, APULA Parrish Ot E11.9 TYPE 2 DIABETES MELLITUS WITHOUT COMPLIC 05/20/2015 PAULA NUNN MD Ot E78.5 HYPERLIPIDEMIA, UNSPECIFIED 05/20/2015 PAULA NUNN MD Ot E87.1 HYPO-OSMOLALITY AND HYPONATREMIA 05/20/2015 PAULA NUNN MD Ot I10 ESSENTIAL (PRIMARY) HYPERTENSION 05/20/2015 PAULA NUNN MD Ot I21.4 NON-ST ELEVATION (NSTEMI) MYOCARDIAL INF 05/20/2015 PAULA NUNN MD Ot I25.110 ATHSCL HEART DISEASE OF [place] COR ART W 05/20/2015 PAULA NUNN MD [...] K21.9 GASTRO-ESOPHAGEAL REFLUX DISEASE WITHOUT 05/20/2015 PAULA UNNN MD Ot N17.9 ACUTE KIDNEY FAILURE, UNSPECIFIED 05/27/2015 Ot 401.9 05/27/2015 Ot 416.8 05/27/2015 Ot 698.9 05/27/2015 Ot 729.5 05/27/2015 Ot 729.81 05/27/2015 Ot 719.46 05/27/2015 ELIN BUI Ot 401.9 05/27/2015 ELIN BUI Ot 414.00 05/27/2015 ELIN BUI Ot 416.8 05/27/2015 FRANCINE BURRELL, WILLIAM R Ot 729.5 05/27/2015 Ot 784.0 05/27/2015 FRANCINE BURRELL, WILLIAM R Ot 348.89 05/27/2015 FRANCINE BURRELL, WILLIAM R Ot 433.10 05/27/2015 PAULA NUNN MD Ot 272.4 05/27/2015 PAULA NUNN MD Ot 401.9 05/27/2015 PAULA NUNN MD Ot 414.00 05/27/2015 PAULA NUNN MD Ot 786.50 05/27/2015 FRANCINE UBRRELL, WILLIAM R Ot 433.10 05/27/2015 FRANCINE BURRELL, WILLIAM R Ot 433.30 05/27/2015 FRANCINE BURRELL, WILLIAM R Ot 780.79 05/27/2015 FRANCINE BURRELL, WILLIAM R Ot 780.79 05/27/2015 FRANCINE BURRELL, WILLIAM R Ot R05 06/12/2015 EDOUARD BURRELL, PAULA Parrish Ot E03.9 06/12/2015 EDOUARD BURRELL, PAULA Parrish Ot E11.9 06/12/2015 EDOUARD BURRELL, PAULA Parrish Ot E78.5 06/12/2015 PAULA NUNN MD Ot E87.1 06/12/2015 EDOUARD BURRELL, PAULA Parrish Ot I10 06/12/2015 PAULA NUNN MD Ot I21.4 06/12/2015 PAULA NUNN MD Ot I25.110 06/12/2015 PAULA NUNN MD Ot I46.2 06/12/2015 PAULA NUNN MD Ot I47.2 06/12/2015 PAULA NUNN MD Ot I48.91 06/12/2015 PAULA NUNN MD Ot I49.01 06/12/2015 PAULA NUNN MD Ot I65.23 06/12/2015 PAULA NUNN MD Ot [...] Ot 348.89 OTHER CONDITIONS OF BRAIN 03/27/2016 WILLIAM ESCAMILLA MD R Ot 433.10 [...] MULT BILTRAL ARTERY OCCLUSION WO CEREBRA 03/27/2016 WILLAIM ESCAMILLA MD R Ot 780.79 OTH MALAISE FATIGUE 03/27/2016 WILLIAM ESCAMILLA MD R Ot 780.79 OTH MALAISE FATIGUE 03/27/2016 WILLIAM ESACMILLA MD R Ot R05 COUGH 03/27/2016 STEVIE [...] Ot R10.2 PELVIC AND PERINEAL PAIN 05/08/2016 PAULA NUNN MD Ot E78.2 MIXED HYPERLIPIDEMIA 05/08/2016 PAULA NUNN MD Ot I10 ESSENTIAL (PRIMARY) HYPERTENSION 05/08/2016 PAULA NUNN MD Ot I25.10 ATHSCL HEART DISEASE OF [place] CORONARY 05/08/2016 EDOUARD MD, BASHAR J Ot I27.2 OTHER SECONDARY PULMONARY HYPERTENSION 05/08/2016 PAULA NUNN MD Ot I65.23 OCCLUSION AND STENOSIS OF BIL[place]AL [place] 05/08/2016 PAULA NUNN MD Ot E78.2 MIXED HYPERLIPIDEMIA 05/08/2016 PAULA NUNN MD Ot I10 ESSENTIAL (PRIMARY) HYPERTENSION 05/08/2016 PAULA NUNN MD Ot I25.10 ATHSCL HEART DISEASE OF [place] CORONARY 05/08/2016 PAULA NUNN MD Ot I27.2 OTHER SECONDARY PULMONARY HYPERTENSION 05/08/2016 PAULA NUNN MD Ot I65.23 OCCLUSION AND STENOSIS OF [place]AL [place] 05/28/2016 PAULA NUNN MD Ot E78.2 MIXED HYPERLIPIDEMIA 05/28/2016 PAULA NUNN MD Ot I10 ESSENTIAL (PRIMARY) HYPERTENSION 05/28/2016 PAULA NUNN MD Ot I25.10 ATHSCL HEART DISEASE OF [place] CORONARY 05/28/2016 PAULA NUNN MD Ot I27.2 OTHER SECONDARY PULMONARY HYPERTENSION 05/28/2016 PAULA NUNN MD Ot I65.23 OCCLUSION AND STENOSIS OF [place]AL [place] 06/01/2016 SIVAKUMAR SUTHERLAND APRN Ot R91.1 SOLITARY PULMONARY NODULE 06/01/2016 SIVAKUMAR SUTHERLAND APRN Ot R91.1 SOLITARY PULMONARY NODULE 06/01/2016 SIVAKUMAR SUTHERLAND [employer] Ot R91.1 SOLITARY PULMONARY NODULE 06/03/2016 PAULA NUNN MD Ot E78.2 MIXED HYPERLIPIDEMIA 06/03/2016 PAULA NUNN MD Ot I10 ESSENTIAL (PRIMARY) HYPERTENSION 06/03/2016 PAULA NUNN MD Ot I25.10 ATHSCL HEART DISEASE OF [place] CORONARY 06/03/2016 PAULA NUNN MD Ot I27.2 OTHER SECONDARY PULMONARY HYPERTENSION 06/03/2016 PAULA NUNN MD Ot I65.23 OCCLUSION AND STENOSIS OF [place]AL [place] 06/22/2016 SIVAKUMAR SUTHERLAND [employer] Ot R91.1 SOLITARY PULMONARY NODULE 06/24/2016 SIVAKUMAR SUTHERLAND APRN Ot R91.1 SOLITARY PULMONARY NODULE 10/13/2016 Ot 729.5 PAIN IN LIMB 10/13/2016 Ot 729.81 SWELLING OF LIMB 10/13/2016 Ot 719.46 JOINT PAIN-L/LEG 10/13/2016 ELIN BUI Ot 401.9 HYPERTENSION NOS 10/13/2016 ELIN BUI Ot 414.00 CORON ATHEROSCLER NOS TYPE VESSEL, NATIV 10/13/2016 ELIN BUI Ot 416.8 CHR PULMON HEART DIS NEC 10/13/2016 WILLIAM ESCAMILLA MD Ot 729.5 PAIN IN LIMB 10/13/2016 Ot 784.0 HEADACHE 10/13/2016 WILLIAM ESCAMILLA MD Ot 348.89 OTHER CONDITIONS OF BRAIN 10/13/2016 WILLIAM ESCAMILLA MD Ot 433.10 CAROTID ARTERY OCCLUSION W O CEREBRAL IN 10/13/2016 PAULA NUNN MD Ot 272.4 HYPERLIPIDEMIA NEC/NOS 10/13/2016 PAULA NUNN MD Ot 401.9 HYPERTENSION NOS 10/13/2016 PAULA NUNN MD Ot 414.00 CORON ATHEROSCLER NOS TYPE VESSEL, NATIV 10/13/2016 PAULA NUNN MD Ot 786.50 CHEST PAIN NOS 10/13/2016 WILLIAM ESCAMILLA MD Ot 433.10 CAROTID ARTERY OCCLUSION W O CEREBRAL IN 10/13/2016 WILLIAM ESCAMILLA MD Ot 433.30 MULT BILTRAL ARTERY OCCLUSION WO CEREBRA 10/13/2016 WILLIAM ESCAMILLA MD Ot 780.79 OTH MALAISE FATIGUE 10/13/2016 WILLIAM ESCAMILLA MD Ot 780.79 OTH MALAISE FATIGUE 10/13/2016 WILLIAM ESCAMILLA MD Ot R05 COUGH 10/13/2016 STEVIE LOZANO DO Ot E66.9 OBESITY, UNSPECIFIED 10/13/2016 STEVIE LOZANO DO Ot R05 COUGH 10/13/2016 SIVAKUMAR SUTHERLAND APRN Ot R91.1 SOLITARY PULMONARY NODULE 10/13/2016 WILLIAM ESCAMILLA MD Ot R10.2 PELVIC AND PERINEAL PAIN 10/13/2016 WILLIAM ESCAMILLA MD Ot E03.9 HYPOTHYROIDISM, UNSPECIFIED 10/13/2016 PAULA NUNN MD Ot E78.2 MIXED HYPERLIPIDEMIA 10/13/2016 PAULA NUNN MD Ot I10 ESSENTIAL (PRIMARY) HYPERTENSION 10/13/2016 PAULA NUNN MD Ot I25.10 ATHSCL HEART DISEASE OF [place] CORONARY 10/13/2016 PAULA NUNN MD Ot I27.2 OTHER SECONDARY PULMONARY HYPERTENSION 10/13/2016 PAULA NUNN MD Ot I65.23 OCCLUSION AND STENOSIS OF [place]AL [place] 10/15/2016 Ot 729.5 PAIN IN LIMB 10/15/2016 Ot 729.81 SWELLING OF LIMB 10/15/2016 Ot 719.46 JOINT PAIN-L/LEG 10/15/2016 ELIN BUI Ot 401.9 HYPERTENSION NOS 10/15/2016 ELIN BUI Ot 414.00 CORON ATHEROSCLER NOS TYPE VESSEL, NATIV 10/15/2016 ELIN BUI Ot 416.8 CHR PULMON HEART DIS NEC 10/15/2016 WILLIAM ESCAMILLA MD Ot 729.5 PAIN IN LIMB 10/15/2016 Ot 784.0 HEADACHE 10/15/2016 WILLIAM ESCAMILLA MD Ot 348.89 OTHER CONDITIONS OF BRAIN 10/15/2016 WILLIAM ESCAMILLA MD Ot 433.10 CAROTID ARTERY OCCLUSION W O CEREBRAL IN 10/15/2016 PAULA NUNN MD Ot 272.4 HYPERLIPIDEMIA NEC/NOS 10/15/2016 PAULA NUNN MD Ot 401.9 HYPERTENSION NOS 10/15/2016 PAULA NUNN MD Ot 414.00 CORON ATHEROSCLER NOS TYPE VESSEL, NATIV 10/15/2016 PAULA NUNN MD Ot 786.50 CHEST PAIN NOS 10/15/2016 WILLIAM ESCAMILLA MD Ot 433.10 CAROTID ARTERY OCCLUSION W O CEREBRAL IN 10/15/2016 WILLIAM ESCAMILLA MD Ot 433.30 MULT BILTRAL ARTERY OCCLUSION WO CEREBRA 10/15/2016 WILLIAM ESCAMILLA MD Ot 780.79 OTH MALAISE FATIGUE 10/15/2016 WILLIAM ESCAMILLA MD Ot 780.79 OTH MALAISE FATIGUE 10/15/2016 WILLIAM ESCAMILLA MD Ot R05 COUGH 10/15/2016 STEVIE LOZANO DO Ot E66.9 OBESITY, UNSPECIFIED 10/15/2016 STEVIE LOZAON DO Ot R05 COUGH 10/15/2016 ENA, SIVAKUMAR E [employer] Ot R91.1 SOLITARY PULMONARY NODULE 10/15/2016 WILLIAM ESCAMILLA MD Ot R10.2 PELVIC AND PERINEAL PAIN 10/15/2016 WILLIAM ESCAMILLA MD Ot E03.9 HYPOTHYROIDISM, UNSPECIFIED 10/15/2016 PAULA NUNN MD Ot E78.2 MIXED HYPERLIPIDEMIA 10/15/2016 PAULA NUNN MD Ot I10 ESSENTIAL (PRIMARY) HYPERTENSION 10/15/2016 PAULA NUNN MD Ot I25.10 ATHSCL HEART DISEASE OF [place] CORONARY 10/15/2016 PAULA NUNN MD Ot I27.2 OTHER SECONDARY PULMONARY HYPERTENSION 10/15/2016 PAULA NUNN MD Ot I65.23 OCCLUSION AND STENOSIS OF [place]AL [place] 10/16/2016 WILLIAM ESCAMILLA MD Ot K57.30 DVRTCLOS OF LG INT W/O PERFORATION OR AB 10/16/2016 WILLIAM ESCAMILLA MD Ot K83.8 OTHER SPECIFIED DISEASES OF [place]IL[place] 10/16/2016 WILLIAM ESCAMILLA MD Ot M25.552 PAIN IN LEFT HIP 10/16/2016 WILLIAM ESCAMILLA MD Ot 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) 11/05/2016 WILLIAM ESCAMILLA MD Ot K57.30 DVRTCLOS OF LG INT W/O PERFORATION OR AB 11/05/2016 WILLIAM ESCAMILLA MD Ot K83.8 OTHER SPECIFIED DISEASES OF BILIARY [place]AC 11/05/2016 WILLIAM ESCAMILLA MD Ot M25.552 PAIN IN LEFT HIP 11/05/2016 WILLIAM ESCAMILLA MD Ot 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) 11/18/2016 WILLIAM ESCAMILAL MD Ot K57.30 DVRTCLOS OF LG INT W/O PERFORATION OR AB 11/18/2016 WILLIAM ESCAMILLA MD Ot K83.8 OTHER SPECIFIED DISEASES OF BILIARY TRAC 11/18/2016 WILLIAM ESCAMILLA MD Ot M25.552 PAIN IN LEFT HIP 11/18/2016 WILLIAM ESCAMILLA MD Ot 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) Procedures Code Description Performed By Performed On 88.53 LT HEART ANGIOCARDIOGRAM 11/12/2011 88.56 CORONAR ARTERIOGR-2 CATH 11/12/2011 [id number] DILATION OF 1 COR ART WITH DRUG-ELUT INT 05/17/2015 [id number] MEASURE OF CARDIAC SAMPL PRESSURE, L H 05/17/2015 [id number] FLUOROSCOPY OF MULT COR ART USING L OSM 05/17/2015 [id number] FLUOROSCOPY OF LEFT HEART USING LOW OSMO 05/17/2015 Results Test Result Range THYROID STIMULATING HORMONE - 03/26/16 12:50 THYROID STIMULATING HORMONE 1.11 u[iU]/mL 0.35-4.94 Encounters ACCT No. Visit Date/Time Discharge Status Pt. Type Provider Facility Loc./Unit Complaint [id number] 10/15/2016 08:07:00 2016 23:59:59 CLS Outpatient WILLIAM ESCAMILLA MD [facility] RAD PELVIC JOINT PAIN [id number] 05/29/2016 10:24:00 2016 23:59:59 CLS Outpatient SIVAKUMAR SUTHERLAND APRN [facility] RAD LUNG NODULE [id number] 05/07/2016 07:54:00 2016 23:59:59 CLS Outpatient PAULA NUNN MD [facility] CARD CAD,HTN,HLP [id number] 03/27/2016 12:19:00 2015 23:59:59 CLS Outpatient WILLIAM ESCAMILLA MD [facility] RAD PELVIC PAIN IN FEMALE [id number] 03/26/2016 12:39:00 2015 23:59:59 CLS Outpatient WILLIAM ESCAMILLA MD [facility] LAB PELVIC PAIN [id number] 05/27/2015 09:20:00 2015 23:59:59 CLS Outpatient STEVIE LOZANO DO [facility] RAD COUGHING [id number] 05/17/2015 14:14:00 2015 11:20:00 DIS Inpatient PAULA NUNN MD [facility] CSD CARDIAC ARREST, VENTRICULAR FIBRILLATION [id number] 03/11/2015 10:31:00 2014 23:59:59 CLS Outpatient WILLIAM ESCAMILLA MD [facility] RAD COUGH [id number] 11/28/2014 10:41:00 2014 20:45:00 DIS Outpatient PAULA NUNN MD [facility] CATH CP,HTN,HLP [id number] 11/06/2014 14:26:00 2014 17:07:00 DIS Emergency LUCINDA BURRELL, DONATO Garrison [facility] ER CHEST/BACK/LEFT ARM PAIN [id number] 10/31/2014 08:24:00 2014 23:59:59 CLS Outpatient WILLIAM ESCAMILLA MD [facility] RAD SUDDEN ONSET MASSIVE FATIGUE [id number] 10/30/2014 08:52:00 2014 23:59:59 CLS Outpatient WILLIAM ESCAMILLA MD [facility] CARD SUDDEN ONSET MASSIVE FATIGUE [id number] 07/30/2014 07:41:00 2014 23:59:59 CLS Outpatient PAULA NUNN MD [facility] CARD CAD,CP,HTN [id number] 06/20/2014 10:59:00 2014 23:59:59 CLS Outpatient WILLIAM ESCAMILLA MD [facility] RAD [id number] 02/28/2014 14:10:00 2013 23:59:59 CLS Outpatient WILLIAM ESCAMILLA MD [facility] RAD SUDDEN ONSET LT INGUAL AND FEMORAL IGUNAL AREA [id number] 08/22/2013 08:38:00 2013 23:59:59 CLS Outpatient ELIN BUI [facility] CARD CAD,DM,HLP,HTN [id number] 06/13/2013 19:45:00 2013 10:33:00 DIS Inpatient WILLIAM ESCAMILLA MD [facility] 4TH TIA [id number] 06/13/2014 10:42:00 Document Registration [id number] 02/28/2014 14:12:00 Document Registration [id number] 02/28/2014 14:09:00 Document Registration [id number] 02/28/2014 14:09:00 Document Registration [id number] 11/12/2011 13:45:00 Document Registration [id number] 08/03/2011 07:59:00 Document Registration [id number] 06/24/2011 12:38:00 Document Registration [id number] 02/16/2011 15:02:00 Document Registration [id number] 08/28/2010 13:22:00 Document Registration [id number] 08/14/2009 09:57:00 Document Registration [id number] 08/12/2009 11:32:00 Document Registration [id number] 07/31/2009 15:02:00 Document Registration [id number] 12/18/2008 15:00:00 Document Registration [id number] 12/18/2008 10:22:00 Document Registration
[2017-02-15] MEDS ORDERED: KETOROLAC 30 MG/ML VIAL IVP ONE (15:15)
[2017-02-15] MEDS ORDERED: ORPHENADRINE 60 MG/2 ML (NORFLEX) AMP IM ONE (15:15)
--- NOTE | 2017-02-15 15:17 | ED Back Pain ---
General Chief Complaint: Back Problems Stated Complaint: NECK/SHOULDER/BACK PAIN Nursing Triage Note: PATIENT STARTED WITH PAIN IN NECK LAST SATURDAY 02/10. SHE ASSUMED IT WAS A PULLED MUSCLE. PAIN WORSENED AND SPREAD TO BACK. SHE WENT TO [facility] ON AND GOT A "SHOT OF ANIT-INFLAMMATORY." IT DID NOT HELP AND WORE OFF IN 8 HRS. PAIN NOW RADIATES TO CHEST. PAIN TO TOUCH AND WITH ROM. NO PAIN AT REST. Nursing Sepsis Screen: No Definite Risk Source of Information: Patient, Family (son) Exam Limitations: No Limitations History of Present Illness Time Seen by Provider: 15:00 Initial Comments Patient presents to ER by private conveyance with her son and a chief complaint that she for 5 days now has been experiencing pain like a pulled muscle in her right neck and trapezius area. She does not report injuring this has not had any recent trauma, falls, car wrecks or fractures. She states that she has not had any fevers chills nasal congestion, runny nose, ear pain, sore throat, cough , shortness of breath, rash or sick contacts. She's never had torticollis before. She does not have a history of neck injury or neck pain. It is worse when she tries to turn her head to the left. She's having no radiation of the pain down her arm or back. She has no stingers, murmurs, weakness, paresthesias , numbness. She was seen by her primary care physician and he gave her a shot of something and that made her feel good for about 8 hours but then it wore off. She was using the cyclobenzaprine he gave her but she did not feel that she had any relief from that. She has not initiated any steroids because she had an adverse reaction from it in the past. She is on a blood thinner but no longer Brilinta for her history of coronary artery disease. Allergies and Home Medications Allergies Coded Allergies: lisinopril (Unverified Allergy, Unknown, PT STATED SHE DOESNT REMEMBER , ) Home Medications Amlodipine Besylate 10 Mg Tablet, 10 MG PO DAILY, (Reported) Aspirin 81 Mg Tablet.dr, 81 MG PO DAILY, (Reported) Atorvastatin Calcium 20 Mg Tablet, 20 MG PO HS, (Reported) LAST FILLED #90 06-04-14 Carvedilol 3.125 Mg Tablet, 3.125 MG PO DAILY, (Reported) Famotidine 20 Mg Tablet, 20 MG PO DAILY PRN for ACID REFLUX, (Reported) Glipizide 10 Mg Tablet, 10 MG PO DAILY, (Reported) Levothyroxine Sodium 112 Mcg Tablet, 112 MCG PO DAILY, (Reported) Metformin HCl 1,000 Mg Tab.er.24, 1,000 MG PO BID, (Reported) Lancing 3 Polyunsat Fatty Acids 1,000 Mg Cap, 1,000 MG PO TID, (Reported) Ticagrelor 90 Mg Tablet, 90 MG PO BID, #60 Ref 4 Prescribed by: PAULA NUNN on 05/20/15 0837 Valsartan/Hydrochlorothiazide 1 Each Tablet, 1 TAB PO DAILY @ 1800, (Reported) Constitutional: see HPI EENTM: see HPI, no symptoms reported, No ear discharge, No ear pain Respiratory: no symptoms reported, see HPI, No cough, No short of breath Cardiovascular: No chest pain, No palpitations Gastrointestinal: No abdominal pain, No constipation, No diarrhea, No nausea Musculoskeletal: see HPI, No back pain, No joint pain Skin: No pruritus, No rash Psychiatric/Neurological: Denies Headache, Denies Numbness, Denies Paresthesia Past Awzecbh-Fobvdj-Nedelb Hx Patient Social History Alcohol Use: Denies Use Recreational Drug Use: No Smoking Status: Never a Smoker 2nd Hand Smoke Exposure: No Recent Foreign Travel: No Contact w/Someone Who Travel: No Recent Infectious Disease Expo: No Recent Hopitalizations: Yes Physical Abuse: No Sexual Abuse: No Immunizations Up To Date Tetanus Booster (TDap): More than 5yrs PED Vaccines UTD: Yes Date of Pneumonia Vaccine: Nov 29, 2011 Date of Influenza Vaccine: Jan 27, 2016 Surgeries History of Surgeries: Yes (pancreas blockage-opened it up) Surgeries: Cardiac, Gallbladder, Hysterectomy Respiratory History of Respiratory Disorde: No Cardiovascular History of Cardiac Disorders: Yes Cardiac Disorders: Coronary Artery Disease, Hypertension Neurological History of Neurological Disord: Yes Reproductive System Sexually Transmitted Disease: No HIV/AIDS: No Female Reproductive Disorders: Denies Gastrointestinal History of Gastrointestinal Di: Yes Gastrointestinal Disorders: Gastroesophageal Reflux Musculoskeletal History of Musculoskeletal Dis: Yes Musculoskeletal Disorders: Arthritis Endocrine History of Endocrine Disorders: Yes Endocrine Disorders: Hypothyroidsim, Diabetes, Non-Insulin dep HEENT Loss of Vision: Denies Hearing Impairment: Denies Cancer History of Cancer: No Psychosocial History of Psychiatric Problem: No Suicide Risk Score: 0 Integumentary History of Skin or Integumenta: No Blood Transfusions History of Blood Disorders: Yes Family Medical History Significant Family History: Diabetes Family Medial History: Family history: Arthritis Family history: Asthma Family history: Coronary thrombosis Family history: Diabetes mellitus Family history: Thyroid disorder Headache Hereditary disease No Family History of: Abdominal aortic aneurysm Chaitanya's disease Alcoholism Aphasia Cancer Cancer of colon Cataract Chest pain Congenital heart disease Congestive heart failure Cystic fibrosis Dementia Dysphagia Family history: Allergy Family history: Alzheimer's disease Family history: Breast disease Family history: Cardiovascular disease Family history: Gastrointestinal disease Family history: Glaucoma Family history: Hypertension Family history: Osteoporosis Hearing loss Heart disease History of - anemia History of - disorder History of - respiratory disease History of drug abuse Human immunodeficiency virus (HIV) seropositivity Hypercholesterolemia Infertile Kidney disease Malignant neoplasm of lung Myocardial infarction Parkinson's disease Prostate cancer Psychotic disorder Seizure disorder Stroke Tuberculosis Visual impairment Physical Exam Vital Signs Vital Sign - Last 12Hours 02/15/17 13:24 Temp 97.5 Pulse 93 Resp 22 B/P (MAP) 185/100 Pulse Ox 98 Capillary Refill : Less Than 3 Seconds General Appearance: No Apparent Distress, WD/WN HEENT: PERRL/EOMI, TMs Normal, Normal ENT Inspection, Pharynx Normal Neck: Full Range of Motion (active range motion limited to pain.), Normal Inspection, Supple, No Carotid Bruit, Lymphadenopathy (L) (subtle shotty anterior), Lymphadenopathy (R) (subtle, shotty, anterior), Tender Lateral ( right more than left), No Tender Midline Cardiovascular: Regular Rate, Rhythm, No Edema Respiratory: Chest Non Tender, Lungs Clear, Normal Breath Sounds Peripheral Pulses: 2+ Radial Pulses (R), 2+ Radial Pulses (L) Gastrointestinal: Normal Bowel Sounds, Non Tender, Soft Back: Normal Inspection, No Vertebral Tenderness Extremity: Normal Capillary Refill, Normal Inspection Neurologic/Psychiatric: Alert, Oriented x3, No Motor/Sensory Deficits, Normal Mood/Affect Skin: Normal Color, Warm/Dry Progress/Results/Core Measures Results/Orders Vital Signs/I&O Vital Sign - Last 12Hours 02/15/17 13:24 Temp 97.5 Pulse 93 Resp 22 B/P (MAP) 185/100 Pulse Ox 98 Blood Pressure Mean: 128 Departure Impression Impression: Primary Impression: Torticollis, spasmodic Disposition: 01 HOME, SELF-CARE Condition: Stable Departure-Patient Inst. Decision time for Depature: 15:15 Referrals: WILLIAM ESCAMILLA MD (PCP/Family) Primary Care Physician Patient Instructions: Ivan (DC) Add. Discharge Instructions: Drink plenty of fluids and use Tylenol 1000 mg every 8 hours as needed for your pain. You may also apply heat, icy hot, Biofreeze to your back and neck as needed. If your pain has come so severe that despite these interventions you can still not get any rest you may take one tablet of hydrocodone every 6 hours as needed. Had a cut on we'll increase her drowsiness and risk of constipation. You may also use the muscle relaxant prescribed by your primary care physician. For the next 5 days you should use the prednisone 2 tablets a day you may use one in the morning one in the evening. If you begin to have any symptoms such as feeling wired, and ability to sleep or flushing in the face you can reduce the dose by half or discontinue altogether the prednisone and follow-up with her primary care physician. Expect some resolution in one to 2 weeks. If it is not improved or you have worsening or new symptoms follow-up with your primary care physician. All discharge instructions reviewed with patient and/or family. Voiced understanding. Scripts Prednisone (Prednisone) 20 Mg Tab 20 MG PO BID for 5 Days, #10 TAB 0 Refills Prov: MAX SANTA 02/15/17 Copy Copies To 1: WILLIAM ESCAMILLA MD, TITUS J Feb 15, 2017 15:17
[2017-02-15] MEDS ORDERED: PRD20T PO (15:19)
[2017-02-15] MEDS ORDERED: HYDR-3812 PO (15:29)
[2017-02-15 15:36] VITALS: BP 185/100
== END 2017-02-15 15:37 | disposition home or self-care (01) ==
LOC: EDUNIT# 13:07 → ER 13:09
DX: G24.3 Spasmodic torticollis (principal); I25.10 Atherosclerotic heart disease of native coronary artery without angina pectoris; I10 Essential (primary) hypertension; K21.9 Gastro-esophageal reflux disease without esophagitis; M19.90 Unspecified osteoarthritis, unspecified site; E03.9 Hypothyroidism, unspecified; E11.9 Type 2 diabetes mellitus without complications; Z82.49 Family history of ischemic heart disease and other diseases of the circulatory system; Z79.82 Long term (current) use of aspirin; Z79.84 Long term (current) use of oral hypoglycemic drugs; Z90.710 Acquired absence of both cervix and uterus; Z87.19 Personal history of other diseases of the digestive system
CPT/HCPCS: 96372; 96374; 99284

== ENCOUNTER → 2017-05-27 | Outpatient (CLI) | payer MEDICARE ==
[~2017-05-27] MED LIST changes: +ACHD5005 PO; +PRD20T PO
--- NOTE | 2017-05-27 12:17 | Diagnostic Imaging Report ---
CLINICAL INDICATION: Patient with diabetes mellitus and chronic kidney disease. EXAM: Ultrasound of both kidneys. COMPARISON: CT scan of the abdomen and pelvis without contrast dated 10/15/2016. FINDINGS: The right kidney is normal in size, shape, echogenicity, and cortical thickness without hydronephrosis, stones, or focal lesions and measures 11.9 cm in its craniocaudal dimensions. The left kidney is atrophic with no hydronephrosis and measures 7.0 cm in its craniocaudal dimensions. Of note, the left kidney was difficult to visualize, but is atrophic. Bladder is partially fluid distended with no gross abnormalities visualized. IMPRESSION: 1: No evidence of hydronephrosis or acute process. 2: Stable atrophic left kidney. 3: Unremarkable right kidney. Dictated by: Dictated on workstation # [id number]
== END ==
LOC: RAD 08:07
PROVIDERS: ATTEND Family Medicine
DX: E10.22 Type 1 diabetes mellitus with diabetic chronic kidney disease (principal); N18.2 Chronic kidney disease, stage 2 (mild); N26.1 Atrophy of kidney (terminal)
CPT/HCPCS: 76770

== ENCOUNTER 2018-02-13 07:09 | Inpatient (IN) | payer MEDICARE ==
[~2018-02-13] VITALS: Ht 157.5 cm; Wt 75.7 kg
[2018-02-13] VITALS (10 sets, daily range): BP systolic 95–132; BP diastolic 49–77
[~2018-02-13 07:09] MED LIST changes: -AMLO10TA2 PO; +AMLO10TA6 PO; +METF-399 PO; -METF1000 PO
[2018-02-13] MEDS ORDERED: ASPIRIN 81 MG CHEW (CHILDREN'S ASA) PO ONE (07:15)
--- OUTSIDE RECORDS SUMMARY | 2018-02-13 07:15 | XMS REPORT | Continuity of Care Document ---
Author Author [facility] Organization [facility] Address Unknown Phone Unavailable Allergies Active Description Code Type Severity Reaction Onset Reported/Identified Relationship to Patient Clinical Status Yes No Known Drug Allergies [id number] Drug Allergy Unknown N/A 05/02/2008 Yes lisinopril [id number] Drug Allergy Unknown PT STATED SHE D 11/28/2014 Medications There is no data. Problems Date Dx Coded Attending Type Code Diagnosis Diagnosed By 12/19/2008 Ot 786.2 08/12/2009 Ot 530.11 11/13/2011 Ot 244.9 HYPOTHYROIDISM NOS 11/13/2011 Ot 250.00 DIAB SMILEY WO COMPL, TYPE II OR UNSPEC TY 11/13/2011 Ot 272.4 HYPERLIPIDEMIA NEC/NOS 11/13/2011 Ot 410.71 AC MYOCARDIAL INFARCT,SUBENDO INFARCT,IN 11/13/2011 Ot 414.01 CORONARY ATHEROSCLEROSIS OF [place] CORON 11/13/2011 Ot 433.10 CAROTID ARTERY OCCLUSION [...] MD R Ot 716.90 ARTHROPATHY NOS-UNSPEC 06/16/2013 FRANCINE BURRELL, WILLIAM R Ot 784.59 OTHER SPEECH DISTURBANCE 06/16/2013 WILLIAM ESCAMILLA MD R Ot V03.82 PROPHYLACTIC VACC AGAINST STREPTOCOCCUS 06/16/2013 FRANCINE BURRELL, WILLIAM R Ot V15.82 HISTORY OF TOBACCO USE [...] EDOUARD BURRELL, PAULA Parrish Ot 414.00 08/27/2014 PAULA NUNN MD Ot 786.50 09/11/2014 EDOUARD BURRELL, PAULA Parrish Ot 272.4 09/11/2014 EDOUARD BURRELL, PAULA Parrish Ot 401.9 09/11/2014 EDOUARD BURRELL, PAULA Parrish Ot 414.00 09/11/2014 PAULA NUNN MD Ot 786.50 11/06/2014 LUCINDA BURRELL, DONATO Garrison Ot 244.9 HYPOTHYROIDISM NOS 11/06/2014 LUCINDA BURRELL, DONATO Garrison Ot 250.00 DIAB SMILEY WO COMPL, TYPE II OR UNSPEC TY 11/06/2014 LUCINDA BURRELL, DONATO Garrison Ot 414.00 CORON ATHEROSCLER NOS TYPE VESSEL, NATIV 11/06/2014 DONATO JANE MD Ot 593.9 RENAL URETERAL DIS NOS 11/06/2014 DONATO JANE MD Ot 719.41 JOINT PAIN-SHLDER 11/06/2014 DONATO JANE [...] WILLIAM ESCAMILLA MD R Ot 433.30 11/28/2014 WILLIAM ESCAMILLA MD R Ot 780.79 11/28/2014 WILLIAM ESCAMILLA MD R Ot 780.79 11/28/2014 PAULA NNUN MD Ot 244.9 HYPOTHYROIDISM NOS 11/28/2014 PAULA NUNN MD Ot 250.00 DIAB SMILEY WO COMPL, TYPE II OR UNSPEC TY 11/28/2014 PAULA NUNN MD Ot 272.4 HYPERLIPIDEMIA NEC/NOS 11/28/2014 PAULA NNUN MD Ot 401.9 HYPERTENSION NOS 11/28/2014 PAULA NUNN MD Ot 414.01 CORONARY ATHEROSCLEROSIS OF [place] CORON 11/28/2014 PAULA NUNN MD Ot 786.50 CHEST PAIN NOS 11/28/2014 PAULA NUNN MD Ot V58.69 OT MED,LT,CURRENT USE 11/29/2014 WILLIAM ESCAMILLA MD R Ot 433.10 11/29/2014 WILLIAM ESCAMILLA MD Ot 433.30 11/29/2014 WILLIAM ESCAMILLA MD Ot 780.79 11/29/2014 WILLIAM ESCAMILLA MD R Ot 780.79 02/04/2015 Ot 401.9 02/04/2015 Ot 416.8 02/04/2015 Ot 698.9 02/04/2015 Ot 729.5 02/04/2015 Ot 729.81 02/04/2015 Ot 719.46 02/04/2015 ELIN BUI Ot 401.9 02/04/2015 ELIN BUI Ot 414.00 02/04/2015 ELIN BUI Ot 416.8 02/04/2015 WILLIAM ESCAMILLA MD Ot 729.5 02/04/2015 Ot 784.0 02/04/2015 WILLIAM ESCAMILLA MD R Ot 348.89 02/04/2015 WILLIAM ESCAMILLA MD R Ot 433.10 02/04/2015 PAULA NUNN MD Ot 272.4 02/04/2015 PAULA NUNN MD Ot 401.9 02/04/2015 EDOUARD BURRELL, PAULA J Ot 414.00 02/04/2015 EDOUARD BURRELL, PAULA [...] 729.5 03/11/2015 Ot 784.0 03/11/2015 FRANCINE BURRELL, IWLLIAM R Ot 348.89 03/11/2015 FRANCINE BURRELL, WILLIAM R Ot 433.10 03/11/2015 PAULA NUNN MD Ot 272.4 03/11/2015 EDOUARD BURRELL, PAULA Parrish Ot 401.9 03/11/2015 EDOUARD BURRELL, PAULA Parrish Ot 414.00 03/11/2015 EDOUARD BURRELL, PAULA Parrish Ot 786.50 03/11/2015 FRANCINE BURRELL, WILLIAM R [...] MD Ot I25.110 ATHSCL HEART DISEASE OF [place] COR ART W 05/20/2015 PAULA NUNN MD [...] BUI Ot 416.8 05/27/2015 WILLIAM ESCAMILLA MD Ot 729.5 05/27/2015 Ot 784.0 05/27/2015 WILLIAM ESCAMILLA MD R Ot 348.89 05/27/2015 WILLIAM ESCAMILLA MD R Ot 433.10 05/27/2015 PAULA NUNN MD Ot 272.4 05/27/2015 PAULA NUNN MD Ot 401.9 05/27/2015 PAULA NUNN MD Ot 414.00 05/27/2015 PAULA NUNN MD Ot 786.50 05/27/2015 FRANCINE BURRELL, WILLIAM R Ot 433.10 05/27/2015 FRANCINE BURRELL, WILLIAM R Ot 433.30 05/27/2015 FRANCINE BURRELL, WILLIAM R Ot 780.79 05/27/2015 FRANCINE BURRELL, WILLIAM R Ot 780.79 05/27/2015 FRANCINE BURRELL, WILLIAM R Ot R05 06/12/2015 EDOUARD BURRELL, PAULA Parrish Ot E03.9 06/12/2015 EDOUARD BURRELL, PAULA Parrish Ot E11.9 06/12/2015 EDOUARD BURRELL, PUALA J Ot E78.5 06/12/2015 EDOUARD BURRELL, PAULA Parrish Ot E87.1 06/12/2015 EDOUARD BURRELL, PAULA Parrish Ot I10 06/12/2015 PAULA NUNN MD Ot I21.4 06/12/2015 PAULA NUNN MD Ot I25.110 06/12/2015 PAULA NUNN MD Ot I46.2 06/12/2015 PAULA NUNN MD Ot I47.2 06/12/2015 EDOUARD BURRELL, PAULA J Ot I48.91 06/12/2015 PAULA NUNN MD Ot I49.01 06/12/2015 PAULA NUNN MD Ot I65.23 06/12/2015 PAULA NUNN MD Ot K21.9 06/12/2015 PAULA NUNN MD Ot N17.9 06/18/2015 STEVIE LOZANO DO Ot E66.9 06/18/2015 STEVIE LOZANO DO Ot R05 06/26/2015 STEVIE LOZANO DO Ot E66.9 06/26/2015 STEVIE LOZANO DO Ot R05 03/26/2016 Ot 698.9 PRURITIC DISORDER NOS 03/26/2016 Ot 729.5 PAIN IN LIMB 03/26/2016 Ot 729.81 SWELLING OF LIMB 03/26/2016 Ot 719.46 JOINT PAIN-L /LEG 03/26/2016 ELIN BUI Ot 401.9 HYPERTENSION NOS [...] ARTERY OCCLUSION W O CEREBRAL IN 03/26/2016 PALUA NUNN MD Ot 272.4 HYPERLIPIDEMIA NEC/NOS 03/26/2016 [...] SWELLING OF LIMB 03/27/2016 Ot 719.46 JOINT PAIN-L /LEG 03/27/2016 ELIN BUI Ot 401.9 HYPERTENSION NOS [...] LOZANO DO Ot R05 COUGH 03/27/2016 WILLIAM ESCAMLILA MD R Ot E03.9 HYPOTHYROIDISM, UNSPECIFIED 03/27/2016 [...] MD Ot I25.10 ATHSCL HEART DISEASE OF [place] CORONARY 05/08/2016 PAULA NUNN MD Ot I27.2 OTHER SECONDARY PULMONARY HYPERTENSION 05/08/2016 PAULA NUNN MD Ot I65.23 OCCLUSION AND STENOSIS OF [place]AL [place] 05/08/2016 PAULA NUNN MD Ot E78.2 MIXED HYPERLIPIDEMIA 05/08/2016 PAULA NUNN MD Ot I10 ESSENTIAL (PRIMARY) HYPERTENSION 05/08/2016 PAULA NUNN MD Ot I25.10 ATHSCL HEART DISEASE OF [place] CORONARY 05/08/2016 PAULA NUNN MD Ot I27.2 OTHER SECONDARY PULMONARY HYPERTENSION 05/08/2016 PAULA NUNN MD Ot I65.23 OCCLUSION AND STENOSIS OF [place]IL[place]AL [place] 05/28/2016 PAULA NUNN MD Ot E78.2 MIXED HYPERLIPIDEMIA 05/28/2016 PAULA NUNN MD Ot I10 ESSENTIAL (PRIMARY) HYPERTENSION 05/28/2016 PAULA NUNN MD Ot I25.10 ATHSCL HEART DISEASE OF [place] CORONARY 05/28/2016 PAULA NUNN MD Ot I27.2 OTHER SECONDARY PULMONARY HYPERTENSION 05/28/2016 PAULA NUNN MD Ot I65.23 OCCLUSION AND STENOSIS OF [place]ILATERAL [place] 06/01/2016 SIVAKUMAR SUTHERLAND APRN Ot R91.1 SOLITARY PULMONARY NODULE 06/01/2016 SIVAKUMAR SUTHERLAND APRN Ot R91.1 SOLITARY PULMONARY NODULE 06/01/2016 SIVAKUMAR SUTHERLAND SOFTWARE SUPPORT ANALYST Ot R91.1 SOLITARY PULMONARY NODULE 06/03/2016 PAULA NUNN MD Ot E78.2 MIXED HYPERLIPIDEMIA 06/03/2016 PAULA NUNN MD Ot I10 ESSENTIAL (PRIMARY) HYPERTENSION 06/03/2016 PAULA NUNN MD Ot I25.10 ATHSCL HEART DISEASE OF [place] CORONARY 06/03/2016 PAULA NUNN MD Ot I27.2 OTHER SECONDARY PULMONARY HYPERTENSION 06/03/2016 PAULA NUNN MD Ot I65.23 OCCLUSION AND STENOSIS OF [place]IL[place]AL [place] 06/22/2016 SIVAKUMAR SUTHERLAND SOFTWARE SUPPORT ANALYST Ot R91.1 SOLITARY PULMONARY NODULE 06/24/2016 SIVAKUMAR SUTHERLAND APRN Ot R91.1 SOLITARY PULMONARY NODULE 10/13/2016 Ot 729.5 PAIN IN LIMB 10/13/2016 Ot 729.81 SWELLING OF LIMB 10/13/2016 Ot 719.46 JOINT PAIN-L /LEG 10/13/2016 ELIN BUI Ot 401.9 HYPERTENSION NOS [...] MD Ot I25.10 ATHSCL HEART DISEASE OF [place] CORONARY 10/13/2016 PAULA NUNN MD Ot I27.2 OTHER SECONDARY PULMONARY HYPERTENSION 10/13/2016 PAULA NUNN MD Ot I65.23 OCCLUSION AND STENOSIS OF [place]AL [place] 10/15/2016 Ot 729.5 PAIN IN LIMB 10/15/2016 Ot 729.81 SWELLING OF LIMB 10/15/2016 Ot 719.46 JOINT PAIN-L /LEG 10/15/2016 ELIN BUI Ot 401.9 HYPERTENSION NOS 10/15/2016 ELIN BUI Ot 414.00 CORON ATHEROSCLER NOS TYPE VESSEL, NATIV 10/15/2016 ELIN BUI Ot 416.8 CHR PULMON HEART DIS NEC 10/15/2016 WILLIAM ESCAMILLA MD Ot 729.5 PAIN IN LIMB 10/15/2016 Ot 784.0 HEADACHE 10/15/2016 WILLIAM ESCAMILLA MD Ot 348.89 OTHER CONDITIONS OF BRAIN 10/15/2016 WILLIAM ESCAMILLA MD R Ot 433.10 CAROTID ARTERY OCCLUSION W O CEREBRAL IN 10/15/2016 PAULA NUNN MD Ot 272.4 HYPERLIPIDEMIA NEC/NOS 10/15/2016 PAULA NUNN MD Ot 401.9 HYPERTENSION NOS 10/15/2016 PAULA NUNN MD Ot 414.00 CORON ATHEROSCLER NOS TYPE VESSEL, NATIV 10/15/2016 PAULA NUNN MD Ot 786.50 CHEST PAIN NOS 10/15/2016 WILLIAM ESCAMILLA MD R Ot 433.10 CAROTID ARTERY OCCLUSION W O CEREBRAL IN 10/15/2016 WILLIAM ESCAMILLA MD R Ot 433.30 MULT BILTRAL ARTERY OCCLUSION WO CEREBRA 10/15/2016 WILLIAM ESCAMILLA MD R Ot 780.79 OTH MALAISE FATIGUE 10/15/2016 WILLIAM ESCAMILLA MD R Ot 780.79 OTH MALAISE FATIGUE 10/15/2016 WILLIAM ESCAMILLA MD R Ot R05 COUGH 10/15/2016 STEVIE LOZANO DO Ot E66.9 OBESITY, UNSPECIFIED 10/15/2016 STEVEI LOZANO DO Ot R05 COUGH 10/15/2016 SIVAKUMAR SUTHERLAND APRN Ot R91.1 SOLITARY PULMONARY NODULE 10/15/2016 WILLIAM ESCAMILLA MD Ot R10.2 PELVIC AND PERINEAL PAIN 10/15/2016 WILLIAM ESCAMILLA MD Ot E03.9 HYPOTHYROIDISM, UNSPECIFIED 10/15/2016 PAULA NUNN MD Ot E78.2 MIXED HYPERLIPIDEMIA 10/15/2016 PAULA NUNN MD Ot I10 ESSENTIAL (PRIMARY) HYPERTENSION 10/15/2016 PAULA NUNN MD Ot I25.10 ATHSCL HEART DISEASE OF [place] CORONARY 10/15/2016 PAULA NUNN MD Ot I27.2 [...] 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) 11/18/2016 WILLIAM ESCAMILLA MD Ot K57.30 DVRTCLOS OF LG INT W/O PERFORATION OR AB 11/18/2016 WILLIAM ESCAMILLA MD Ot K83.8 OTHER SPECIFIED DISEASES OF BILI[place] 11/18/2016 WILLIAM ESCAMILLA MD Ot M25.552 PAIN IN LEFT HIP 11/18/2016 WILLIAM ESCAMILLA MD Ot 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) 02/15/2017 MAX SANTA MD Ot E03.9 HYPOTHYROIDISM, UNSPECIFIED 02/15/2017 MAX SANTA MD Ot E11.9 TYPE 2 DIABETES MELLITUS WITHOUT COMPLIC 02/15/2017 MAX SANTA MD Ot G24.3 SPASMODIC TORTICOLLIS 02/15/2017 MAX SANTA MD Ot I10 ESSENTIAL (PRIMARY) HYPERTENSION 02/15/2017 MAX SANTA MD Ot I25.10 ATHSCL HEART DISEASE OF [place] CORONARY 02/15/2017 MAX SANTA MD Ot K21.9 GASTRO-ESOPHAGEAL REFLUX DISEASE WITHOUT 02/15/2017 MAX SANTA MD Ot M19.90 UNSPECIFIED OSTEOARTHRITIS, UNSPECIFIED 02/15/2017 MAX SANTA MD Ot M54.2 CERVICALGIA 02/15/2017 MAX SANTA MD Ot Z79.82 GROUP HOME (CURRENT) USE OF ASPIRIN 02/15/2017 MAX SANTA MD Ot Z79.84 CLOSED CIRCUIT SCREEN WATCHER (CURRENT) USE OF ORAL HYPOGLYC 02/15/2017 MAX SANTA MD Ot Z82.49 FAMILY HX OF ISCHEM HEART DIS AND OTH DI 02/15/2017 MAX SANTA MD Ot Z87.19 PERSONAL HISTORY OF OTHER DISEASES OF TH 02/15/2017 MAX SANTA MD Ot Z90.710 ACQUIRED ABSENCE OF BOTH CERVIX AND UTER 02/15/2017 ELIN BUI Ot 401.9 HYPERTENSION NOS 02/15/2017 ELIN BUI Ot 414.00 CORON ATHEROSCLER NOS TYPE VESSEL, NATIV 02/15/2017 ELIN BUI Ot 416.8 CHR PULMON HEART DIS NEC 02/15/2017 WILLIAM ESCAMILLA MD Ot 729.5 PAIN IN LIMB 02/15/2017 Ot 784.0 HEADACHE 02/15/2017 WILLIAM ESCAMILLA MD Ot 348.89 OTHER CONDITIONS OF BRAIN 02/15/2017 WILLIAM ESCAMILLA MD Ot 433.10 CAROTID ARTERY OCCLUSION W O CEREBRAL IN 02/15/2017 PAULA NUNN MD Ot 272.4 HYPERLIPIDEMIA NEC/NOS 02/15/2017 PAULA NUNN MD Ot 401.9 HYPERTENSION NOS 02/15/2017 PAULA NUNN MD Ot 414.00 CORON ATHEROSCLER NOS TYPE VESSEL, NATIV 02/15/2017 PAULA NUNN MD Ot 786.50 CHEST PAIN NOS 02/15/2017 WILLIAM ESCAMILLA MD Ot 433.10 CAROTID ARTERY OCCLUSION W O CEREBRAL IN 02/15/2017 WILLIAM ESCAMILLA MD Ot 433.30 MULT BILTRAL ARTERY OCCLUSION WO CEREBRA 02/15/2017 WILLIAM ESCAMILLA MD Ot 780.79 OTH MALAISE FATIGUE 02/15/2017 WILLIAM ESCAMILLA MD Ot 780.79 OTH MALAISE FATIGUE 02/15/2017 WILLIAM ESCAMILLA MD Ot R05 COUGH 02/15/2017 STEVIE LOZANO DO Ot E66.9 OBESITY, UNSPECIFIED 02/15/2017 STEVIE LOZANO DO Ot R05 COUGH 02/15/2017 SIVAKUMAR SUTHERLAND APRN Ot R91.1 SOLITARY PULMONARY NODULE 02/15/2017 WILLIAM ESCAMILLA MD Ot R10.2 PELVIC AND PERINEAL PAIN 02/15/2017 WILLIAM ESCAMILLA MD Ot E03.9 HYPOTHYROIDISM, UNSPECIFIED 02/15/2017 PAULA NUNN MD Ot E78.2 MIXED HYPERLIPIDEMIA 02/15/2017 PAULA NUNN MD Ot I10 ESSENTIAL (PRIMARY) HYPERTENSION 02/15/2017 PAULA NUNN MD Ot I25.10 ATHSCL HEART DISEASE OF [place] CORONARY 02/15/2017 PAULA NUNN MD Ot I27.2 OTHER SECONDARY PULMONARY HYPERTENSION 02/15/2017 PAULA NUNN MD Ot I65.23 OCCLUSION AND STENOSIS OF BILATERAL [place] 02/15/2017 WILLIAM ESCAMILLA MD Ot K57.30 DVRTCLOS OF LG INT W/O PERFORATION OR AB 02/15/2017 WILLIAM ESCAMILLA MD Ot K83.8 OTHER SPECIFIED DISEASES OF BILIARY [place] 02/15/2017 WILLIAM ESCAMILLA MD Ot M25.552 PAIN IN LEFT HIP 02/15/2017 WILLIAM ESCAMILLA MD Ot 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) 05/31/2017 WILLIAM ESCAMILLA MD Ot 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 05/31/2017 WILLIAM ESCAMILLA MD Ot N18.2 CHRONIC KIDNEY DISEASE, STAGE 2 (MILD) 05/31/2017 SEGLIE MD, WILLIAM R Ot 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) 06/15/2017 WILLIAM ESCAMILLA MD R Ot 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 06/15/2017 WILLIAM ESCAMILLA MD R Ot N18.2 CHRONIC KIDNEY DISEASE, STAGE 2 (MILD) 06/15/2017 WILLIAM ESCAMILLA MD R Ot 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) 06/16/2017 WILLIAM ESCAMILLA MD R Ot 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 06/16/2017 WILLIAM ESCAMILLA MD R Ot N18.2 CHRONIC KIDNEY DISEASE, STAGE 2 (MILD) 06/16/2017 WILLIAM ESCAMILLA MD R Ot 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 Visit Date/Time Discharge Status Pt. Type Provider Facility Loc./Unit Complaint [id number] 05/27/2017 08:07:00 05/27/2017 23:59:59 CLS Outpatient WILLIAM ESCAMILLA MD [facility] RAD E10.22 [id number] 02/15/2017 13:09:00 02/15/2017 15:37:00 DIS Emergency KIET BURRELL, MAX Parrish [facility] ER NECK/SHOULDER/BACK PAIN [id number] 10/15/2016 08:07:00 10/15/2016 23:59:59 CLS Outpatient WILLIAM ESCAMILLA MD [facility] RAD PELVIC JOINT PAIN [id number] 05/29/2016 10:24:00 05/29/2016 23:59:59 CLS Outpatient SIVAKUMAR SUTHERLAND APRN [facility] RAD LUNG NODULE [id number] 05/07/2016 07:54:00 05/07/2016 23:59:59 CLS Outpatient PAULA NUNN MD [facility] CARD CAD,HTN,HLP [id number] 03/27/2016 12:19:00 03/27/2016 23:59:59 CLS Outpatient WILLIAM ESCAMILLA MD [facility] RAD PELVIC PAIN IN FEMALE [id number] 03/26/2016 12:39:00 03/26/2016 23:59:59 CLS Outpatient WILLIAM ESCAMILLA MD [facility] LAB PELVIC PAIN [id number] 05/27/2015 09:20:00 05/27/2015 23:59:59 CLS Outpatient STEVIE LOZANO DO [facility] RAD COUGHING [id number] 05/17/2015 14:14:00 05/20/2015 11:20:00 DIS Inpatient PAULA NUNN MD [facility] CSD CARDIAC ARREST, VENTRICULAR FIBRILLATION [id number] 03/11/2015 10:31:00 03/11/2015 23:59:59 CLS Outpatient WILLIAM ESCAMILLA MD [facility] RAD COUGH [id number] 11/28/2014 10:41:00 11/28/2014 20:45:00 DIS Outpatient PAULA NUNN MD [facility] CATH CP,HTN,HLP [id number] 11/06/2014 14:26:00 11/06/2014 17:07:00 DIS Emergency LUCINDA BURRELL, DONATO Garrison [facility] ER CHEST/BACK/LEFT ARM PAIN [id number] 10/31/2014 08:24:00 10/31/2014 23:59:59 CLS Outpatient WILLIAM ESCAMILLA MD [facility] RAD SUDDEN ONSET MASSIVE FATIGUE [id number] 10/30/2014 08:52:00 10/30/2014 23:59:59 CLS Outpatient WILLIAM ESCAMILLA MD [facility] CARD SUDDEN ONSET MASSIVE FATIGUE [id number] 07/30/2014 07:41:00 07/30/2014 23:59:59 CLS Outpatient EDOUARD BURRELL, PAULA Parrish [facility] CARD CAD,CP,HTN [id number] 06/20/2014 10:59:00 06/20/2014 23:59:59 CLS Outpatient WILLIAM ESCAMILLA MD [facility] RAD [id number] 02/28/2014 14:10:00 02/28/2014 23:59:59 CLS Outpatient WILLIAM ESCAMILLA MD [facility] RAD SUDDEN ONSET LT INGUAL AND FEMORAL IGUNAL AREA [id number] 08/22/2013 08:38:00 08/22/2013 23:59:59 CLS Outpatient TAWNY MORA, ELIN Grace [facility] CARD CAD,DM,HLP, HTN [id number] 06/13/2013 19:45:00 06/16/2013 10:33:00 DIS Inpatient WILLIAM ESCAMILLA MD [facility] 4TH TIA [id number] 06/13/2014 10:42:00 Document Registration [id number] 02/28/2014 14:12:00 Document Registration [id number] 02/28/2014 14:09:00 Document Registration [id number] 02/28/2014 14:09:00 Document Registration [id number] 11/12/2011 13:45:00 Document Registration [id number] 08/03/2011 07:59:00 Document Registration [id number] 06/24/2011 12:38:00 Document Registration [id number] 02/16/2011 15:02:00 Document Registration [id number] 08/28/2010 13:22:00 Document Registration [id number] 08/14/2009 09:57:00 Document Registration [id number] 08/12/2009 11:32:00 Document Registration [id number] 07/31/2009 15:02:00 Document Registration [id number] 12/18/2008 15:00:00 Document Registration [id number] 12/18/2008 10:22:00 Document Registration [id number] 11/28/2014 10:42:32 ACT Document Registration
--- NOTE | 2018-02-13 07:24 | ED Chest Pain ---
General Stated Complaint: CP Source: patient Exam Limitations: no limitations History of Present Illness Date Seen by Provider: Feb 13, 2018 Time Seen by Provider: 07:10 Initial Comments Here with report of chest pain that is central and started right at about 7 a.m. States that it woke her up. Pain radiating from central chest in the arms and feels numbness or tingling in her hands bilateral. States this feels like when she had her heart attack a few years ago. At that episode she went into V. tach and required CPR. She did have heart stent after that. She is not on blood thinners currently as they were stopped after a year or so being on the medicine. She does follow with Dr. Sanabria. Denies nausea, vomiting, weakness, sweating or breathing problems. States the pain was 9 out of 10 and went down a little bit after aspirin. 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: No Associated Symptoms: No back pain, No fever/chills, No nausea/vomiting, No shortness of breath, No weakness Allergies and Home Medications Allergies Coded Allergies: lisinopril (Unverified Allergy, Unknown, PT STATED SHE DOESNT REMEMBER , ) Home Medications Amlodipine Besylate 10 Mg Tablet, 10 MG PO DAILY, (Reported) Aspirin 81 Mg Tablet.dr, 81 MG PO DAILY, (Reported) Atorvastatin Calcium 20 Mg Tablet, 20 MG PO HS, (Reported) LAST FILLED #90 06-04-14 Carvedilol 3.125 Mg Tablet, 3.125 MG PO DAILY, (Reported) Famotidine 20 Mg Tablet, 20 MG PO DAILY PRN for ACID REFLUX, (Reported) Glipizide 10 Mg Tablet, 10 MG PO DAILY, (Reported) Hydrocodone Bit/Acetaminophen 1 Each Tablet, 1 EACH PO Q6H PRN for BREAKTHROUGH PAIN Prescribed by: MAX SANTA on 02/15/17 1529 Levothyroxine Sodium 112 Mcg Tablet, 112 MCG PO DAILY, (Reported) Metformin HCl 1,000 Mg Tab.er.24, 1,000 MG PO BID, (Reported) [place] 3 Polyunsat Fatty Acids 1,000 Mg Cap, 1,000 MG PO TID, (Reported) Prednisone 20 Mg Tab, 20 MG PO BID Prescribed by: MAX SANTA on 02/15/17 1519 Ticagrelor 90 Mg Tablet, 90 MG PO BID Prescribed by: PAULA SANABRIA on 05/20/15 0837 Valsartan/Hydrochlorothiazide 1 Each Tablet, 1 TAB PO DAILY @ 1800, (Reported) Patient Home Medication List Home Medication List Reviewed: Yes Review of Systems Review of Systems Constitutional: see HPI; No chills, No fever EENTM: No Symptoms Reported Respiratory: No Symptoms Reported Cardiovascular: See HPI, Chest Pain; Denies Edema, Denies Palpitations Gastrointestinal: Denies Abdominal Pain, Denies Nausea, Denies Vomiting Genitourinary: No Symptoms Reported Musculoskeletal: no symptoms reported All Other Systems Reviewed Negative Unless Noted: Yes Past Fbgokbh-Ivugoc-Lssvfn Hx Past Med/Social Hx: Reviewed Nursing Past Med/Soc Hx Patient Social History Alcohol Use: Denies Use Recreational Drug Use: No Smoking Status: Never a Smoker 2nd Hand Smoke Exposure: No Recent Hopitalizations: Yes Immunizations Up To Date Tetanus Booster (TDap): More than 5yrs PED Vaccines UTD: Yes Date of Pneumonia Vaccine: Nov 29, 2011 Date of Influenza Vaccine: Jan 27, 2016 Past Medical History Surgeries: Yes (pancreas blockage-opened it up) Cardiac, Gallbladder, Hysterectomy Respiratory: No Cardiac: Yes Coronary Artery Disease, Hypertension Neurological: Yes Female Reproductive Disorders: Denies Sexually Transmitted Disease: No HIV/AIDS: No Gastrointestinal: Yes Gastroesophageal Reflux Musculoskeletal: Yes Arthritis Endocrine: Yes Hypothyroidsim, Diabetes, Non-Insulin dep Loss of Vision: Denies Hearing Impairment: Denies Cancer: No Psychosocial: No Integumentary: No Blood Disorders: Yes Family Medical History Reviewed Nursing Family Hx Family history: Arthritis Family history: Asthma Family history: Coronary thrombosis Family history: Diabetes mellitus Family history: Thyroid disorder Headache Hereditary disease No Family History of: Abdominal aortic aneurysm [place]'s disease Alcoholism Aphasia Cancer Cancer of colon Cataract Chest pain Congenital heart disease Congestive heart failure Cystic fibrosis Dementia Dysphagia Family history: Allergy Family history: Alzheimer's disease Family history: Breast disease Family history: Cardiovascular disease Family history: Gastrointestinal disease Family history: Glaucoma Family history: Hypertension Family history: Osteoporosis Hearing loss Heart disease History of - anemia History of - disorder History of - respiratory disease History of drug abuse Human immunodeficiency virus (HIV) seropositivity Hypercholesterolemia Infertile Kidney disease Malignant neoplasm of lung Myocardial infarction Parkinson's disease Prostate cancer Psychotic disorder Seizure disorder Stroke Tuberculosis Visual impairment Diabetes Physical Exam Vital Signs Vital Signs - First Documented 02/13/18 07:09 Temp 98.0 Pulse 80 Resp 18 B/P (MAP) 181/98 (125) Pulse Ox 100 O2 Delivery Room Air Capillary Refill : Height, Weight, BMI Height: 5'1.00" Weight: 175lbs. 0oz. 79.330555ug; 30.61 BMI Method:Stated General Appearance: WD/WN, Anxious HEENT: PERRL/EOMI, Pharynx Normal Neck: Non Tender, Supple Respiratory: Lungs Clear, Normal Breath Sounds Cardiovascular: Regular Rate, Rhythm, No Murmur Gastrointestinal: Non Tender, Soft Extremity: Normal Range of Motion, Non Tender Neurologic/Psychiatric: Alert, Oriented x3 Skin: Normal Color, Warm/Dry Progress/Results/Core Measures Results/Orders Lab Results Laboratory Tests Test 02/13/18 07:21 02/13/18 07:38 02/13/18 11:00 Range/Units White Blood Count 5.3 4.3-11.0 10^3/uL Red Blood Count 3.91 L 4.35-5.85 10^6/uL Hemoglobin 11.3 L 11.5-16.0 G/DL Hematocrit 34 L 35-52 % Mean Corpuscular Volume 87 80-99 FL Mean Corpuscular Hemoglobin 29 25-34 PG Mean Corpuscular Hemoglobin Concent 33 32-36 G/DL Red Cell Distribution Width 13.3 10.0-14.5 % Platelet Count 264 130-400 10^3/uL Mean Platelet Volume 9.9 7.4-10.4 FL Neutrophils (%) (Auto) 54 42-75 % Lymphocytes (%) (Auto) 34 12-44 % Monocytes (%) (Auto) 9 0-12 % Eosinophils (%) (Auto) 3 0-10 % Basophils (%) (Auto) 0 0-10 % Neutrophils # (Auto) 2.9 1.8-7.8 X 10^3 Lymphocytes # (Auto) 1.8 1.0-4.0 X 10^3 Monocytes # (Auto) 0.5 0.0-1.0 X 10^3 Eosinophils # (Auto) 0.2 0.0-0.3 10^3/uL Basophils # (Auto) 0.0 0.0-0.1 10^3/uL Sodium Level 137 135-145 MMOL/L Potassium Level 4.8 3.6-5.0 MMOL/L Chloride Level 103 98-107 MMOL/L Carbon Dioxide Level 22 21-32 MMOL/L Anion Gap 12 5-14 MMOL/L Blood Urea Nitrogen 24 H 7-18 MG/DL Creatinine 1.77 H 0.60-1.30 MG/DL Estimat Glomerular Filtration Rate 28 BUN/Creatinine Ratio 14 Glucose Level 141 H 70-105 MG/DL Calcium Level 10.1 8.5-10.1 MG/DL Corrected Calcium 9.8 8.5-10.1 MG/DL Magnesium Level 1.9 1.8-2.4 MG/DL Total Bilirubin 0.4 0.1-1.0 MG/DL Aspartate Amino Transf (AST/SGOT) 18 5-34 U/L Alanine Aminotransferase (ALT/SGPT) 17 0-55 U/L Alkaline Phosphatase 68 40-136 U/L Myoglobin 57.1 163.7 H 10.0-92.0 NG/ML Troponin I < 0.30 < 0.30 <0.30 NG/ML Total Protein 7.2 6.4-8.2 GM/DL Albumin 4.4 3.2-4.5 GM/DL Prothrombin Time 13.1 12.2-14.7 SEC INR Comment 1.0 0.8-1.4 Activated Partial Thromboplast Time 23 L 24-35 SEC D-Dimer 0.79 H 0.00-0.49 UG/ML My Orders Orders - SABRINA RIOS MD Cbc With Automated Diff (02/13/18 07:11) Magnesium (02/13/18 07:11) Chest 1 View, Ap/Pa Only (02/13/18 07:11) Ekg Tracing (02/13/18 07:11) Cardiac Profile 1 (02/13/18 07:11) Comprehensive Metabolic Panel (02/13/18 07:11) Myoglobin Serum (02/13/18 07:11) Protime With Inr (02/13/18 07:11) Partial Thromboplastin Time (02/13/18 07:11) O2 (02/13/18 07:11) Monitor-Rhythm Ecg Trace Only (02/13/18 07:11) Lipid Panel (02/14/18 06:00) Aspirin Chewable Tablet (Baby Aspirin Ch (02/13/18 07:15) Nitroglycerin 0.4 Mg Btl 25's (Nitrostat (02/13/18 07:15) Saline Lock/Iv-Start (02/13/18 07:11) Lidocaine 2% Viscous 15 Ml (Xylocaine Vi (02/13/18 08:15) Antacid Suspension (Mylanta Suspension (02/13/18 08:15) Morphine Injection (Morphine Injection (02/13/18 08:34) Fibrin Degradation Products (02/13/18 09:32) Troponin I (02/13/18 10:33) Myoglobin Serum (02/13/18 10:33) Ticagrelor Tablet (Brilinta Tablet) (02/13/18 12:15) Heparin Drip [id number] Unit/500ml (Heparin (02/13/18 12:02) Heparin (Bolus Per Protocol) (Heparin (B (02/13/18 12:02) Ekg Tracing (02/13/18 12:12) Medications Given in ED Current Medications Medications Dose Ordered Sig/Eder Route Start Time Stop Time Status Last Admin Dose Admin Al Hydrox/Mg Hydrox/Simethicone 30 ml ONCE ONCE PO 02/13/18 08:15 02/13/18 08:16 DC 02/13/18 08:20 30 ML Aspirin 324 mg ONCE ONCE PO 02/13/18 07:15 02/13/18 07:16 DC 02/13/18 07:37 324 MG Heparin Sodium (Porcine) HEPARIN BOLUS ACS PROTOC... 1202 ONCE IV 02/13/18 12:02 02/13/18 12:04 DC 02/13/18 12:22 4,000 UNIT Heparin Sodium/ Dextrose 500 ml @ 0 mls/hr Q0M ONCE IV 02/13/18 12:02 02/13/18 12:04 DC 02/13/18 12:30 18.2 MLS/HR Lidocaine HCl 15 ml ONCE ONCE PO 02/13/18 08:15 02/13/18 08:16 DC 02/13/18 08:20 15 ML Nitroglycerin 0.4 mg UD PRN SL 02/13/18 07:15 02/13/18 07:53 DC 11/18/18 07:52 0.4 MG Ticagrelor 180 mg ONCE ONCE PO 02/13/18 12:15 02/13/18 12:16 DC 02/13/18 12:23 180 MG Vital Signs/I&O 02/13/18 07:09 Temp 98.0 Pulse 80 Resp 18 B/P (MAP) 181/98 (125) Pulse Ox 100 O2 Delivery Room Air Progress Progress Note : Progress Note Seen and evaluated. IV, labs, EKG and chest x-ray ordered. ASA 324 milligrams by mouth ordered. Nitroglycerin sublingual ordered when necessary. Monitor patient. Pain has not improved. Morphine 4 mg IV and GI cocktail given. 1200 pain is essentially gone. We did repeat troponin and myoglobin and myoglobin is elevated. 1202: I did discuss the case with Dr. Steel and he sits patient in consult. Patient will go to ICU. Brilinta to 180 mg by mouth ordered. Heparin drip ACS protocol initiated. 1208: I discussed the case with Dr. HOPE and he accepts patient for admission, inpatient status for unstable angina. I did discuss the findings concerns with the patient and family who agree with plan. 1236: Dr. Steel is evaluating and has decided to take her Heart catheter lab. Patient being set up for that. Normal saline 500 mL bolus ordered. Repeat EKG as noted below. Initial ECG Impression Date: Feb 13, 2018 Initial ECG Impression Time: 07:11 Initial ECG Rate: 91 Initial ECG Rhythm: Normal Sinus Comment Sinus rhythm with ventricular bigeminy. Intraventricular conduction delay noted. Low voltage throughout. Some features similar to 19 May 2015 but the ventricular bigeminy is different. [place] has changed more to the left and this shows extreme left axis deviation. No evidence of ST elevation CT. Interpreted by me. EKG : EKG Time: 12:16 Rate: 66 Rhythm: Normal Sinus Comment Sinus rhythm with incomplete right bundle branch block. Overall fairly similar to previous although axis is markedly improved. No PVCs noted. No evidence of ST elevation CT. Interpreted by me. Departure Communication (Admissions) Time/Spoke to Admitting Phy: 12:07 Time/Spoke to Consulting Phy: 12:02 Impression Primary Impression: Unstable angina Additional Impressions: Chest pain Qualified Codes: I20.0 - Unstable angina Elevated myoglobin level Disposition: ADMITTED INPATIENT Condition: Stable Admissions Decision to Admit Reason: Admit from ER (General) Decision to Admit/Date: Feb 13, 2018 Time/Decision to Admit Time: 12:02 Departure-Patient Inst. Referrals: WILLIAM ESCAMILLA MD (PCP/Family) Primary Care Physician SABRINA RIOS MD Feb 13, 2018 07:24
[2018-02-13 07:28] LABS: BASOPHILS % (AUTO) 0 % (0-10); EOSINOPHILS # (AUTO) 0.2 10^3/uL (0.0-0.3); EOSINOPHILS % (AUTO) 3 % (0-10); HEMATOCRIT 34 % (35-52); HEMOGLOBIN 11.3 G/DL (11.5-16.0); LYMPHOCYTES # (AUTO) 1.8 X 10^3 (1.0-4.0); LYMPHOCYTES % (AUTO) 34 % (12-44); MEAN CORPUSCULAR HEMOGLOBIN 29 PG (25-34); MEAN CORPUSCULAR HGB CONC 33 G/DL (32-36); MEAN CORPUSCULAR VOLUME 87 FL (80-99); MEAN PLATELET VOLUME 9.9 FL (7.4-10.4); MONOCYTES # (AUTO) 0.5 X 10^3 (0.0-1.0); MONOCYTES % (AUTO) 9 % (0-12); NEUTROPHILS # (AUTO) 2.9 X 10^3 (1.8-7.8); NEUTROPHILS % (AUTO) 54 % (42-75); PLATELET COUNT 264 10^3/uL (130-400); RED BLOOD COUNT 3.91 10^6/uL (4.35-5.85); RED CELL DISTRIBUTION WIDTH 13.3 % (10.0-14.5); WHITE BLOOD COUNT 5.3 10^3/uL (4.3-11.0)
[2018-02-13] MEDS: NITROGLYCERIN 0.4 MG SL TABS BTL 25'S SL PRN ×3 (07:37→07:52)
[2018-02-13 07:48] LABS: ALANINE AMINOTRANSFERASE 17 U/L (0-55); ALBUMIN 4.4 GM/DL (3.2-4.5); ALKALINE PHOSPHATASE 68 U/L (40-136); BILIRUBIN,TOTAL 0.4 MG/DL (0.1-1.0); BUN/CREATININE RATIO 14; CALCIUM 10.1 MG/DL (8.5-10.1); CARBON DIOXIDE 22 MMOL/L (21-32); CHLORIDE 103 MMOL/L (98-107); CREATININE SERUM 1.77 MG/DL (0.60-1.30); GFR ESTIMATED 28; GLUCOSE 141 MG/DL (70-105); MAGNESIUM 1.9 MG/DL (1.8-2.4); POTASSIUM 4.8 MMOL/L (3.6-5.0); SODIUM 137 MMOL/L (135-145); TOTAL PROTEIN 7.2 GM/DL (6.4-8.2)
[2018-02-13 07:54] LABS: MYOGLOBIN SERUM 57.1 NG/ML (10.0-92.0)
[2018-02-13] MEDS ORDERED: LIDOCAINE 2% VISCOUS 15 ML UDC PO ONE (08:15)
[2018-02-13] MEDS ORDERED: ANTACID SUSP 30 ML UDC (MYLANTA) PO ONE (08:15)
[2018-02-13 08:25] LABS: PROTHROMBIN TIME PATIENT 13.1 SEC (12.2-14.7)
[2018-02-13] MEDS ORDERED: morphine INJ 10 MG/ML 1ML (SYR OR VIAL) IVP STA (08:34)
--- NOTE | 2018-02-13 08:34 | Diagnostic Imaging Report ---
INDICATION: Chest pain Upright portable chest shows normal heart size and vascularity. The lungs are clear. There is no effusion or pneumothorax. There is no bony abnormality. IMPRESSION: Normal portable chest. There is no change from 03/11/2015. Dictated by: Dictated on workstation # [id number]
[2018-02-13 11:38] LABS: MYOGLOBIN SERUM 163.7 NG/ML (10.0-92.0)
[2018-02-13] MEDS ORDERED: HEParin 1000 UNIT/ML (10ML VIAL) FOR BOLUS IV ONE (12:02)
[2018-02-13] MEDS ORDERED: TICAGRELOR 90 MG TABLET (BRILINTA) PO ONE (12:15)
--- NOTE | 2018-02-13 12:17 | Consultation-Cardiology ---
HPI-Cardiology Cardiology Consultation: Date of Consultation 02/13/18 Date of Admission Attending Physician Admitting Physician Luigi Ashley MD Consulting Physician Yousuf STEEL MD HPI: Time Seen by a Provider: 12:30 Chief Complaint: Prolonged chest pain This is a 77-year-old lady who has significant post cardiac history and medical history of hypertension, hyperlipidemia, diabetes. In 2016 she had non-STEMI with ventricular fibrillation requiring ACLS/CPR. Coronary angiography done by Dr. Sanabria showed severe LAD disease which was treated with 2 drug-eluting stents. Moderate disease in the left circumflex artery was left alone. She presents with chest pain since 7 o'clock this morning. Severe, substernal. No radiation. No exacerbating or relieving factors. Gradually chest pain improved a little bit however on my interview, she was still having 2/10 chest pain despite getting treatment for the last 5 hours. She denied any shortness of breath, syncope or near syncope. Denied active smoking. No significant family history of premature CAD. Review of Systems-Cardiology Review of Systems Constitutional: As described under HPI; No As described under HPI, No no symptoms reported, No chills, No fever, No lightheadedness Eyes: No As described under HPI, No no symptoms reported, No blindness, No blurred vision, No contact lenses, No drainage, No decreased acuity, No foreign body sensation, No pain, No vision change Ears/Nose/Throat: No As described under HPI, No no symptoms reported, No chronic hearing loss, No ear discharge, No ear pain, No nasal drainage, No ulcerations Respiratory: No no symptoms reported; As described under HPI; No As described under HPI, No cough, No orthopnea, No shortness of breath, No SOB with excertion Cardiovascular: No no symptoms reported; As described under HPI; No As described under HPI; chest pain; No edema, No irregular heart rate, No lightheadedness, No palpitations Gastrointestinal: No no symptoms reported, No As described under HPI, No abdomen distended, No abdominal pain, No blood streaked bowels, No constipation , No diarrhea, No nausea, No vomiting, No stool coloration changes Genitourinary: No As described under HPI, No burning, No dysuria, No discharge , No frequency, No flank pain, No hematuria, No urgency : Yes : No Skin: No rash, No skin related problems, No ulcerations Psychiatric/Neurological: No anxiety, No depression, No seizure, No focal weakness, No syncope Hematologic: No bleeding abnormalities All Other Systems Reviewed Negative Unless Noted: Yes [id number]-[id number] Hx Patient Social History Alcohol Use: Denies Use Recreational Drug Use: No Smoking Status: Never a Smoker 2nd Hand Smoke Exposure: No Recent Foreign Travel: No Recent Infectious Disease Expo: No Immunizations Up To Date Tetanus Booster (TDap): More than 5yrs Date of Pneumonia Vaccine: Nov 29, 2011 Date of Influenza Vaccine: Jan 27, 2016 Past Medical History PMH As described under Assessment. Family Medical History Family History: Family history: Arthritis Family history: Asthma Family history: Coronary thrombosis Family history: Diabetes mellitus Family history: Thyroid disorder Headache Hereditary disease No Family History of: Abdominal aortic aneurysm [place]'s disease Alcoholism Aphasia Cancer Cancer of colon Cataract Chest pain Congenital heart disease Congestive heart failure Cystic fibrosis Dementia Dysphagia Family history: Allergy Family history: Alzheimer's disease Family history: Breast disease Family history: Cardiovascular disease Family history: Gastrointestinal disease Family history: Glaucoma Family history: Hypertension Family history: Osteoporosis Hearing loss Heart disease History of - anemia History of - disorder History of - respiratory disease History of drug abuse Human immunodeficiency virus (HIV) seropositivity Hypercholesterolemia Infertile Kidney disease Malignant neoplasm of lung Myocardial infarction Parkinson's disease Prostate cancer Psychotic disorder Seizure disorder Stroke Tuberculosis Visual impairment Allergies and Home Medications Allergies Coded Allergies: lisinopril (Unverified Allergy, Unknown, PT STATED SHE DOESNT REMEMBER , ) Home Medications Amlodipine Besylate 10 Mg Tablet, 10 MG PO DAILY, (Reported) Aspirin 81 Mg Tablet.dr, 81 MG PO DAILY, (Reported) Atorvastatin Calcium 20 Mg Tablet, 20 MG PO HS, (Reported) LAST FILLED #90 06-04-14 Carvedilol 3.125 Mg Tablet, 3.125 MG PO DAILY, (Reported) Famotidine 20 Mg Tablet, 20 MG PO DAILY PRN for ACID REFLUX, (Reported) Glipizide 10 Mg Tablet, 10 MG PO DAILY, (Reported) Hydrocodone Bit/Acetaminophen 1 Each Tablet, 1 EACH PO Q6H PRN for BREAKTHROUGH PAIN Prescribed by: MAX SANTA on 02/15/17 1529 Levothyroxine Sodium 112 Mcg Tablet, 112 MCG PO DAILY, (Reported) Metformin HCl 1,000 Mg Tab.er.24, 1,000 MG PO BID, (Reported) [place] 3 Polyunsat Fatty Acids 1,000 Mg Cap, 1,000 MG PO TID, (Reported) Prednisone 20 Mg Tab, 20 MG PO BID Prescribed by: MAX SANTA on 02/15/17 1519 Ticagrelor 90 Mg Tablet, 90 MG PO BID Prescribed by: PAULA SANABRIA on 05/20/15 0837 Valsartan/Hydrochlorothiazide 1 Each Tablet, 1 TAB PO DAILY @ 1800, (Reported) Patient Home Medication List Home Medication List Reviewed: Yes Physical Exam-Cardiology Physical Exam Vital Signs/I&O 02/13/18 02/13/18 07:09 13:20 Temp 98.0 Pulse 80 87 Resp 18 16 B/P (MAP) 181/98 (125) 180/93 (122) Pulse Ox 100 98 O2 Delivery Room Air Capillary Refill : Less Than 3 Seconds Constitutional: appears stated age, AAO x 3; No apparent distress; well- developed, well-nourished HEENT: PERRL; No discharge; hearing is well preserved, oral hygience is good; No ulceration, No xanthelasmas are seen Neck: No non-tender, No full range of motion, No supple, No normal inspection, No carotid bruit, No limited range of motion, No lymphadenopathy (R), No lymphadenopathy (L), No tender lateral, No tender midline, No thyromegaly, No other; carotid pulses are 2 + bilaterally; No with good upstrokes Respiratory: No accessory muscle use, No respiratory distress, No chest tender , No chest expansion is symmetric; chest is bilaterally symmetric; No lungs clear to percussion; lungs clear to auscultation; No crackles, No rhonchi, No rales, No stridor, No wheezing, No pleural rub, No other Cardiovascular: regular rate-rhythm; No irregularly irregular, No extra beats, No parasternal heave is noted, No JVD, No edema, No bradycardia, No tachycardia , No point of maximal impulse, No cardiac thrills are palpable; S1 and S2; No gallop/S3, No gallop/S4, No diastolic murmur, No systolic murmur, No friction rub, No click, No other Gastrointestinal: No tender, No soft, No round, No distended, No pulsatile mass , No organomegaly, No guarding, No rebound, No tenderness, No hernia, No mass, No audible bowel sounds, No abnormal bowel sounds, No abdominal bruits, No spleenomegaly, No other Rectal: deferred Extremities: No normal range of motion, No non-tender, No normal inspection, No pedal edema, No calf tenderness, No normal capillary refill, No pelvis stable , No calf tenderness, No inflammation, No pedal edema, No slow capillary refill , No swelling, No other, No abrasion, No clubbing, No cyanosis, No ecchymosis, No laceration, No no lower extremity edema bilateral, No significant edema, No tenderness, No wound Neurologic/Psychiatric: no motor/sensory deficits, alert, normal mood/affect, oriented x 3, power is 5/5 both on sides Skin: No normal color, No warm/dry, No cyanosis, No cool, No diaphoresis, No damp, No ecchymosis, No jaundice, No mottled, No pallor, No rash, No tattoos/ piercings, No ulcerations, No rash on exposed areas, No ulcerations on exposed areas, No other Data Review Labs Laboratory Tests 02/13/18 07:21: White Blood Count 5.3, Red Blood Count 3.91L, Hemoglobin 11.3L, Hematocrit 34L, Mean Corpuscular Volume 87, Mean Corpuscular Hemoglobin 29, Mean Corpuscular Hemoglobin Concent 33, Red Cell Distribution Width 13.3, Platelet Count 264, Mean Platelet Volume 9.9, Neutrophils (%) (Auto) 54, Lymphocytes (%) (Auto) 34, Monocytes (%) (Auto) 9, Eosinophils (%) (Auto) 3, Basophils (%) (Auto) 0, Neutrophils # (Auto) 2.9, Lymphocytes # (Auto) 1.8, Monocytes # (Auto) 0.5, Eosinophils # (Auto) 0.2, Basophils # (Auto) 0.0, Sodium Level 137, Potassium Level 4.8, Chloride Level 103, Carbon Dioxide Level 22, Anion Gap 12, Blood Urea Nitrogen 24H, Creatinine 1.77H, Estimat Glomerular Filtration Rate 28, BUN/ Creatinine Ratio 14, Glucose Level 141H, Calcium Level 10.1, Corrected Calcium 9.8, Magnesium Level 1.9, Total Bilirubin 0.4, Aspartate Amino Transf (AST/SGOT ) 18, Alanine Aminotransferase (ALT/SGPT) 17, Alkaline Phosphatase 68, Myoglobin 57.1, Troponin I < 0.30, Total Protein 7.2, Albumin 4.4 02/13/18 07:38: Prothrombin Time 13.1, INR Comment 1.0, Activated Partial Thromboplast Time 23L , D-Dimer 0.79H 02/13/18 11:00: Myoglobin 163.7H, Troponin I < 0.30 ECG Impression ECG Initial ECG Rhythm: Normal Sinus Comment T wave inversions noted in inferior and lateral leads. A/P-Cardiology Assessment/Admission Diagnosis Acute coronary syndrome/unstable angina, History of CAD, Hypertension, Diabetes, Hyperlipidemia, Chronic kidney disease stage III. Plan Acute coronary syndrome/unstable angina, this is a patient of Dr. Sanabria. Prolonged chest pain refractory to medical therapy with worsening myoglobin and EKG changes. I have spoken at length with the patient and the ER attending and recommended early invasive therapy. Bolus aspirin, Brilinta, IV heparin. I will arrange for coronary angiography. I discussed at length with the patient the procedure and the risks and complication associated with the procedure. Informed consent was taken. History of CAD, continue dual antiplatelet therapy. Hypertension, will continue angiotensin receptor jaziel. Diabetes, we'll defer to the primary team. Hyperlipidemia, continue high-dose statin therapy as well as omega-3 fatty acids. Chronic kidney disease stage III. Will require nephrology follow-up as an outpatient. She likely has diabetic nephropathy. Critical patient; time spent taking care of this patient over 30 minutes. Thank you for your consultation. Please call me if you have any questions. Flaquita Steel MD, FACP, FACC, FSCAI, FHRS, CCDS Interventional Cardiology Cardiac Electrophysiology Vascular Medicine and Endovascular Interventions Clinical Quality Measures AMI/AHF: ASA po Prior to arrival: Yes Yousuf STEEL MD Feb 13, 2018 12:17 pm
[2018-02-13] MEDS: HEParin DRIP 25000 UNIT/500ML 500 ML IV ONE ×2 (12:22→12:30)
[2018-02-13] MEDS ORDERED: NS IV 500 ML 500 ML IV ONE (12:33)
--- OUTSIDE RECORDS SUMMARY | 2018-02-13 12:49 | XMS REPORT | Continuity of Care Document ---
Author Author [facility] Organization [facility] Address Unknown Phone Unavailable Allergies Active Description Code Type Severity Reaction Onset Reported/Identified Relationship to Patient Clinical Status Yes No Known Drug Allergies [id number] Drug Allergy Unknown N/A 05/02/2008 Yes lisinopril [id number] Drug Allergy Unknown PT STATED SHE D [...] 414.00 11/28/2014 ELIN BUI Ot 416.8 11/28/2014 RFANCINE BURRELL, WILLIAM R Ot 729.5 11/28/2014 Ot [...] ESCAMILLA MD R Ot 780.79 11/28/2014 PAULA NUNN MD [...] PAULA J Ot 414.00 02/04/2015 EDOUARD BURRELL, APULA J Ot 786.50 02/04/2015 FRANCINE BURRELL, WILLIAM [...] Parrish Ot E11.9 06/12/2015 EDOUARD BURRELL, PAULA J Ot E78.5 06/12/2015 EDOUARD BURRELL, PAULA Parrish Ot E87.1 06/12/2015 EODUARD BURRELL, PAULA Parrish Ot I10 06/12/2015 PAULA [...] STEVIE LOZANO DO Ot E66.9 06/26/2015 STEVIE OLZANO DO Ot R05 03/26/2016 Ot 698.9 PRURITIC [...] Ot R10.2 PELVIC AND PERINEAL PAIN 04/16/2016 WILILAM ESCAMILLA MD R Ot E03.9 HYPOTHYROIDISM, UNSPECIFIED [...] R91.1 SOLITARY PULMONARY NODULE 06/01/2016 SIVAKUMAR SUTHERLAND EDUCATION MANAGER Ot R91.1 SOLITARY PULMONARY NODULE 06/03/2016 PAULA NUNN MD Ot E78.2 MIXED HYPERLIPIDEMIA 06/03/2016 PAULA NUNN MD Ot I10 ESSENTIAL (PRIMARY) HYPERTENSION 06/03/2016 PAULA NUNN MD Ot I25.10 ATHSCL HEART DISEASE OF [place] CORONARY 06/03/2016 PAULA NUNN MD Ot I27.2 OTHER SECONDARY PULMONARY HYPERTENSION 06/03/2016 PAULA NUNN MD Ot I65.23 OCCLUSION AND STENOSIS OF BILATERAL [place] 06/22/2016 SIVAKUMAR SUTHERLAND EDUCATION MANAGER Ot R91.1 SOLITARY PULMONARY NODULE 06/24/2016 SIVAKUMAR [...] DO Ot E66.9 OBESITY, UNSPECIFIED 10/15/2016 STEVIE OLZANO DO Ot R05 COUGH 10/15/2016 SIVAKUMAR SUTHERLAND [...] CERVICALGIA 02/15/2017 MAX SANTA MD Ot Z79.82 CUSTODIAL (CURRENT) USE OF ASPIRIN 02/15/2017 MAX SANTA MD Ot Z79.84 CUSTOMER SUPPORT SPECIALIST (CURRENT) USE OF ORAL HYPOGLYC 02/15/2017 MAX [...] 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 TOPOGRAPHICAL ENGINEER 05/31/2017 WILLIAM ESCAMILLA MD Ot N18.2 CHRONIC KIDNEY DISEASE, STAGE 2 (MILD) 05/31/2017 SEGLIE MD, WILLIAM R Ot 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) 06/15/2017 WILLIAM ESCAMILLA MD R Ot 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 TOPOGRAPHICAL ENGINEER 06/15/2017 WILLIAM ESCAMILLA MD R Ot N18.2 CHRONIC KIDNEY DISEASE, STAGE 2 (MILD) 06/15/2017 WILLIAM ESCAMILLA MD R Ot 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) 06/16/2017 WILLIAM ESCAMILLA MD R Ot 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 TOPOGRAPHICAL ENGINEER 06/16/2017 WILLIAM ESCAMILLA MD R Ot N18.2 CHRONIC KIDNEY DISEASE, STAGE 2 (MILD) 06/16/2017 WILLIAM ESCAMILLA MD R Ot 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 Visit Date/Time Discharge Status Pt. Type Provider Facility Loc./Unit Complaint [id number] 05/27/2017 08:07:00 05/27/2017 23:59:59 CLS Outpatient WILLIAM ESCAMILLA MD [facility] RAD E10.22 [id number] 02/15/2017 13:09:00 02/15/2017 15:37:00 DIS Emergency KIET BURRELL, MAX Parrish [facility] ER NECK/SHOULDER/BACK PAIN [id number] 10/15/2016 08:07:00 10/15/2016 23:59:59 CLS Outpatient WILLIAM ESCAMILLA MD [facility] RAD PELVIC JOINT PAIN [id number] 05/29/2016 10:24:00 05/29/2016 23:59:59 CLS Outpatient SIVAKUMAR SUTHERLAND APRN [facility] RAD LUNG NODULE [id number] 05/07/2016 07:54:00 05/07/2016 23:59:59 CLS Outpatient PAULA NUNN MD [facility] CARD CAD,HTN,HLP [id number] 03/27/2016 12:19:00 03/27/2016 23:59:59 CLS Outpatient WILLIAM ESCAMILLA MD [facility] RAD PELVIC PAIN IN FEMALE [id number] 03/26/2016 12:39:00 03/26/2016 23:59:59 CLS Outpatient WILLIAM ESCAMILLA MD [facility] LAB PELVIC PAIN [id number] 05/27/2015 09:20:00 05/27/2015 23:59:59 CLS Outpatient STEVIE LOZANO DO [facility] RAD COUGHING [id number] 05/17/2015 14:14:00 05/20/2015 11:20:00 DIS Inpatient PAULA NUNN MD [facility] CSD CARDIAC ARREST, VENTRICULAR FIBRILLATION [id number] 03/11/2015 10:31:00 03/11/2015 23:59:59 CLS Outpatient WILLIAM ESCAMILLA MD [facility] RAD COUGH [id number] 11/28/2014 10:41:00 11/28/2014 20:45:00 DIS Outpatient PAULA NUNN MD [facility] CATH CP,HTN,HLP [id number] 11/06/2014 14:26:00 11/06/2014 17:07:00 DIS Emergency LUCINDA BURRELL, DONATO Garrison [facility] ER CHEST/BACK/LEFT ARM PAIN [id number] 10/31/2014 08:24:00 10/31/2014 23:59:59 CLS Outpatient WILLIAM ESCAMILLA MD [facility] RAD SUDDEN ONSET MASSIVE FATIGUE [id number] 10/30/2014 08:52:00 10/30/2014 23:59:59 CLS Outpatient WILLIAM ESCAMILLA MD [facility] CARD SUDDEN ONSET MASSIVE FATIGUE [id number] 07/30/2014 07:41:00 07/30/2014 23:59:59 CLS Outpatient EDOUARD BURRELL, PAULA Parrish [facility] CARD CAD,CP,HTN [id number] 06/20/2014 10:59:00 06/20/2014 23:59:59 CLS Outpatient WILLIAM ESCAMILLA MD [facility] RAD [id number] 02/28/2014 14:10:00 02/28/2014 23:59:59 CLS Outpatient WILLIAM ESCAMILLA MD [facility] RAD SUDDEN ONSET LT INGUAL AND FEMORAL IGUNAL AREA [id number] 08/22/2013 08:38:00 08/22/2013 23:59:59 CLS Outpatient TAWNY MORA, ELIN Grace [facility] CARD CAD,DM,HLP, HTN [id number] 06/13/2013 19:45:00 06/16/2013 10:33:00 DIS Inpatient WILLIAM ESCAMILLA MD [facility] 4TH TIA [id number] 06/13/2014 10:42:00 Document Registration [id number] 02/28/2014 14:12:00 Document Registration [id number] 02/28/2014 14:09:00 Document Registration [id number] 02/28/2014 14:09:00 Document Registration [id number] 11/12/2011 13:45:00 Document Registration [id number] 08/03/2011 07:59:00 Document Registration [id number] 06/24/2011 12:38:00 Document Registration [id number] 02/16/2011 15:02:00 Document Registration [id number] 08/28/2010 13:22:00 Document Registration [id number] 08/14/2009 09:57:00 Document Registration [id number] 08/12/2009 11:32:00 Document Registration [id number] 07/31/2009 15:02:00 Document Registration [id number] 12/18/2008 15:00:00 Document Registration [id number] 12/18/2008 10:22:00 Document Registration [id number] 11/28/2014 10:42:32 ACT Document Registration
[2018-02-13] MEDS ORDERED: MIDAZOLAM 5 MG/5 ML (VERSED) VIAL ONE (12:55)
[2018-02-13] MEDS ORDERED: fentaNYL INJECTION 100 MCG/2 ML AMP ONE (12:55)
[2018-02-13] MEDS ORDERED: LIDOCAINE 1% INJ 20 ML 20 ML VIAL ONE (12:55)
[2018-02-13] MEDS ORDERED: HEParin (CATH LAB) 2,000 ML IV ONE (12:56)
[2018-02-13] MEDS ORDERED: HEParin 1000 UNIT/ML (10ML VIAL) FOR BOLUS ONE (12:56)
[2018-02-13] MEDS ORDERED: NITRO DRIP 25000 MCG/D5W 250 ML IV ONE (13:04)
[2018-02-13] MEDS ORDERED: NS IV 1000 ML 1,000 ML ONE ×2 (13:35→14:31)
--- NOTE | 2018-02-13 13:59 | History & Physical-Hospitalist ---
History of Present Illness HPI/Chief Complaint CC: Chest pain HPI: This is a 77-year-old white female who presented to the ER with chest pain. She has a history of ventricular fibrillation with successful cardiac arrest resuscitation in 2016 prompting stent placement in the LAD by Dr. Sanabria at that time and has been doing well ever since. She reports that the chest pain currently is resolved after multiple medications were given. She'll be taken to cardiac catheterization by cardiology but closely monitoring creatinine of 1.77 that is chronic in nature. She at this current time denies any shortness of breath no wheezing and is in agreement with the plan. Source: patient, family, RN/MD Exam Limitations: no limitations Date Seen 02/13/18 Time Seen by a Provider: 13:00 Attending Physician Luigi Ashley MD PCP Luigi Ashley MD Referring Physician Date of Admission Feb 13, 2018 at 12:42 Home Medications & Allergies Home Medications Reviewed patient Home Medication Reconciliation performed by pharmacy medication reconciliations emissions testing and repair technician and/or nursing. Patients Allergies have been reviewed. Allergies Allergies Coded Allergies lisinopril (Unverified Allergy, Unknown, PT STATED SHE DOESNT REMEMBER , ) Past Fjzfido-Vfiibn-Anzbbn Hx Past Med/Social Hx: Reviewed Nursing Past Med/Soc Hx, Reviewed and Corrections made Patient Social History Marrital Status: single Employed/Student: retired Alcohol Use: Denies Use Recreational Drug Use: No Smoking Status: Never a Smoker 2nd Hand Smoke Exposure: No Recent Foreign Travel: No Contact w/other who traveled: No Recent Hopitalizations: Yes Recent Infectious Disease Expo: No Immunizations Up To Date Tetanus Booster (TDap): More than 5yrs Pediatric: Yes Date of Pneumonia Vaccine: Nov 29, 2011 Date of Influenza Vaccine: Jan 27, 2016 Past Medical History Surgeries: Cardiac, Gallbladder, Hysterectomy Cardiac: Coronary Artery Disease, Hypertension Sexually Transmitted Disease: No HIV/AIDS: No Female Reproductive Disorders: Denies Gastrointestinal: Gastroesophageal Reflux Musculoskeletal: Arthritis Endocrine: Hypothyroidsim, Diabetes, Non-Insulin dep Loss of Vision: Denies Hearing Impairment: Denies History of Blood Disorders: Yes Family History Reviewed Nursing Family Hx Family history: Arthritis Family history: Asthma Family history: Coronary thrombosis Family history: Diabetes mellitus Family history: Thyroid disorder Headache Hereditary disease No Family History of: Abdominal aortic aneurysm [place]'s disease Alcoholism Aphasia Cancer Cancer of colon Cataract Chest pain Congenital heart disease Congestive heart failure Cystic fibrosis Dementia Dysphagia Family history: Allergy Family history: Alzheimer's disease Family history: Breast disease Family history: Cardiovascular disease Family history: Gastrointestinal disease Family history: Glaucoma Family history: Hypertension Family history: Osteoporosis Hearing loss Heart disease History of - anemia History of - disorder History of - respiratory disease History of drug abuse Human immunodeficiency virus (HIV) seropositivity Hypercholesterolemia Infertile Kidney disease Malignant neoplasm of lung Myocardial infarction Parkinson's disease Prostate cancer Psychotic disorder Seizure disorder Stroke Tuberculosis Visual impairment Diabetes Review of Systems Constitutional: see HPI EENTM: no symptoms reported Respiratory: no symptoms reported Cardiovascular: chest pain Gastrointestinal: nausea Genitourinary: no symptoms reported Musculoskeletal: no symptoms reported Skin: no symptoms reported Psychiatric/Neurological: No Symptoms Reported All Other Systems Reviewed Negative Unless Noted: Yes Physical Exam Physical Exam Vital Signs Vital Signs - First Documented 02/13/18 07:09 Temp 98.0 Pulse 80 Resp 18 B/P (MAP) 181/98 (125) Pulse Ox 100 O2 Delivery Room Air Capillary Refill : Less Than 3 Seconds Height, Weight, BMI Height: 5'2.00" Weight: 168lbs. 0oz. 76.868712vj; 30.61 BMI Method:Stated General Appearance: No Apparent Distress, WD/WN, Chronically ill Eyes: Bilateral Eye Normal Inspection, Bilateral Eye PERRL HEENT: PERRL/EOMI, Normal ENT Inspection, Pharynx Normal Neck: Full Range of Motion, Normal Inspection, Non Tender, Supple, Carotid Bruit Respiratory: Chest Non Tender, Lungs Clear, Normal Breath Sounds, No Accessory Muscle Use, No Respiratory Distress Cardiovascular: Regular Rate, Rhythm, No Edema, No Gallop, No JVD, No Murmur, Normal Peripheral Pulses Gastrointestinal: Normal Bowel Sounds, No Organomegaly, No Pulsatile Mass, Non Tender, Soft Back: Normal Inspection, No CVA Tenderness, No Vertebral Tenderness Extremity: Normal Capillary Refill, Normal Inspection, Normal Range of Motion, Non Tender, No Calf Tenderness, No Pedal Edema Neurologic/Psychiatric: Alert, Oriented x3, No Motor/Sensory Deficits, Normal Mood/Affect Skin: Normal Color, Warm/Dry Lymphatic: No Adenopathy Results Results/Procedures Labs Laboratory Tests 02/13/18 07:21 Patient resulted labs reviewed. Assessment/Plan Admission Diagnosis Assessment: Unstable angina Chest pain Elevated myoglobin History of cardiac arrest and sudden cardiac status post successful resuscitation in 2016 Status post coronary stent placement [address] Sanabria Diabetes mellitus Chronic renal insufficiency creatinine 1.7 today closely monitor with IV contrast during cardiac catheter GERD Plan: Catheterization urgently Monitor creatinine closely Diabetes mellitus management with sliding scale insulin Home meds will be evaluated and restarted Admission Status: Inpatient Order (span 2 midnights) Reason for Inpatient Admission: Unstable angina with elevated myoglobin will require close monitoring after cardiac catheterization Diagnosis/Problems Diagnosis/Problems (1) Chest pain Status: Acute Qualifiers: Chest pain type: chest pain due to myocardial ischemia Ischemic chest pain type: unstable angina pectoris Qualified Codes: I20.0 - Unstable angina (2) Unstable angina Status: Acute (3) Diabetes mellitus Status: Chronic Qualifiers: Diabetes mellitus type: type 2 Diabetes mellitus group home insulin use: without adjunct faculty for medical terminology use Diabetes mellitus complication status: with unspecified complications Qualified Codes: E11.8 - Type 2 diabetes mellitus with unspecified complications (4) Cardiac arrest with successful resuscitation Status: Resolved Resolution Date/Time: 05/14/15 @ 13:54 (5) GERD (gastroesophageal reflux disease) Status: Chronic Qualifiers: Esophagitis presence: without esophagitis Qualified Codes: K21.9 - Gastro- esophageal reflux disease without esophagitis (6) Elevated myoglobin level Status: Acute (7) Coronary artery disease Status: Acute Qualifiers: Coronary Disease-Associated Artery/Lesion type: [place] artery [place] vs. transplanted heart: [place] heart Associated angina: without angina Qualified Codes: I25.10 - Atherosclerotic heart disease of [place] coronary artery without angina pectoris (8) Renal insufficiency Status: Chronic Clinical Quality Measures AMI/AHF: ASA po Prior to arrival: Yes JOSE PENA DO Feb 13, 2018 13:59
[2018-02-13] MEDS ORDERED: meTOprolol 5 MG/5 ML (LOPRESSOR) VIAL ONE (14:05)
[2018-02-13] MEDS ORDERED: ONDANSETRON 4 MG/2 ML (SDV) Z0FRAN ONE (14:59)
--- NOTE | 2018-02-13 15:08 | Cardiac Procedure Note-CS/ASA ---
Pre-Procedure Note Pre-Op Procedure Note H&P Reviewed The H&P was reviewed, patient examined and no changes noted. Date H&P Reviewed: Feb 13, 2018 Time H&P Reviewed: 13:30 Conscious Sedation Pre-Proced Time 13:30 ASA Score 3 For ASA 3 and 4: Consider anesthesia and medical clearance. Also, for patients with a history of failed moderate sedation consider anesthesia. Airway Lungs Heart ASA score ASA 1: a normal healthy patient ASA 2: a patient with a mild systemic disease (mid diabetes, controlled hypertension, obesity ASA 3: a patient with a severe systemic disease that limits activity (angina , COPD, prior Myocardial infarction) ASA 4: a patient with an incapacitating disease that is a constant threat to life (CHF, renal failure) ASA 5: a moribund patient not expected to survive 24 hrs. (ruptured aneurysm) ASA 6: a declared brain patient whose organs are being harvested. For emergent operations, add the letter E after the classification Mallampati Classification Grade 1 Sedation Plan Analgesia, Amnesia, Plan communicated to team members, Discussed options with patient/fam, Discussed risks with patient/fam The patient is an appropriate candidate to undergo the planned procedure, sedation, and anesthesia. The patient immediately re-assessed prior to indication. Yousuf ALFARO MD Feb 13, 2018 3:08 pm
--- NOTE | 2018-02-13 15:25 | Coronary Angiography & PCI ---
Coronary Angiography & PCI DATE OF PROCEDURE: 02/13/18 INDICATION: Acute coronary syndrome. PREOPERATIVE DIAGNOSIS: Acute coronary syndrome. POSTOPERATIVE DIAGNOSIS: Status post-PCI to proximal left circumflex artery and mid/distal LAD. HISTORY: This is a 77-year-old lady with previous history of non-STEMI in ventricular fibrillation requiring PCI to proximal LAD with 2 drug-eluting stent in 2016. She presented with prolonged episode of chest pain refractory to medical therapy for over 5 hours with significant increase in myoglobin. Troponin however 2 sets were negative. EKG showed T-wave inversions. Creatinine 1.77. Therefore, the patient was scheduled for coronary angiography. PROCEDURES PERFORMED: 1.Coronary angiography. 2.Left heart catheterization. 3. Aortic arch angiogram. 4. PCI to the proximal left circumflex artery. 5. PCI to mid and distal LAD. PTCA to proximal LAD stents. COMPLICATIONS: None. SPECIMENS: None. ESTIMATED BLOOD LOSS: 10 mL ANESTHESIA: Conscious sedation ANTICOAGULATION: IV heparin CONTRAST: 145ml. FLUOROSCOPY: 15.3 min. FLOUROSCOPY DOSE: 955 mgy. PROCEDURE DETAILS: The patient is a 77 female and was brought to the custodial laborer after informed consent was taken. All the risks and complications were explained in detail; this included the risk of bleeding, vascular damage, stroke , [place] and even . The patient was draped and prepped in the usual sterile fashion. Access was gained in the right femoral artery with a 6 Persian sheath. Coronary angiography was performed with a JR4 and JL4 catheter. Aortic arch angiography and left heart catheterization was performed with a JR4 catheter. FINDINGS: 1.Left main: Short left main, patent. 2.LAD: Severe in-stent restenosis in the distal part of the previous LAD stents. Severe disease involving the distal edge of the previous stent. Stenosis severity 90 percent. Long severe stenosis in the distal LAD. Stenosis severity 90 percent. 3.Left circumflex artery: Severe proximal left circumflex artery stenosis. Stenosis severity 80 percent. Mild disease in the OM 1. 4.RCA: Small, nondominant. 5.Left heart catheterization: LV pressure 147/10 mmHg. LVEDP 4 mmHg. Aortic pressure 147/61 mmHg. No gradient across the aortic valve. LV gram not done due to creatinine of 1.77. RECOMMENDATIONS: 1. PCI to proximal left circumflex artery. 2. PTCA to severe in-stent restenosis of the previous LAD stent. 3. PCI to mid and distal LAD is recommended. INTERVENTION DETAILS: EBU 3.5 guide catheter, whisper extra-support guidewire and IV heparin for anticoagulation. ACT 2 was done. First ACT 168 seconds, second ACT 270 seconds. The lesion in the proximal left circumflex artery was crossed with the whisper wire. Direct stenting was done with a Xience Guerda 2.75X 15 mm drug-eluting stent at 16 bryson for 30 seconds. Excellent results with LEIDY 3 flow. The wire was then advanced into the LAD. We crossed the lesion in the LAD with some difficulty but were able to place the tip of the LAD wire in the distal LAD. Since the LAD is with diffuse disease we first decided to try balloon angioplasty alone to the distal LAD. We therefore took a noncompliant balloon 2.5X 20 mm and performed gentle PTCA at 6 bryson twice for 29 and 23 seconds respectively. Post-angiogram showed significant worsening. We then took the same NC balloon and performed high pressure balloon dilatation in the previous LAD stents to treat the severe in-stent restenosis with reasonable results. We then took a Xience Guerda 2.25 x 28 mm drug-eluting stent and deployed it at 10 bryson for 44 seconds in the distal LAD. The midportion was postdilated with an NC 2.5 x 20 balloon at 18 bryson for 30 seconds. We used the same balloon to treat the distal edge of the previously placed LAD stent. Post PTCA significant residual stenosis was noted with a small nonflow limiting dissection. We therefore took another Xience Guerda 2.5 x 23 mm CLAUDIA with overlap with the distal edge of the previous stent and the proximal edge of the stent we placed just now. The stent was deployed at 16 bryson for 30 seconds. The same stent balloon was used to post dilate both the distal and proximal overlap zones at 18 bryson. We used the same stent balloon to perform postdilatation in the previous LAD stents at 18 bryson. Excellent results with no residual stenosis and LEIDY-3 flow distally. The wire was taken out. Patient tolerated procedure well and did not have any complication. Numerous PVCs were noted, occasionally with bigeminy pattern therefore Lopressor 5 mg IV was given once. CONCLUSIONS: 1. Severe proximal left circumflex artery stenosis, severe in-stent restenosis in the previous proximal LAD stent, severe stenosis in the mid and distal LAD. 2. Successful PCI with drug-eluting stent to the proximal left circumflex artery and the mid and distal LAD. 3. Continue long-term dual antiplatelet therapy. 4. Generous IV fluids and recheck BUN and creatinine in the morning since the starting creatinine was 1.77. 5. Echocardiogram. Flaquita Steel MD, FACP, FACC, [facility] Interventional Cardiology Yousuf STEEL MD Feb 13, 2018 3:25 pm
[2018-02-13] MEDS ORDERED: PATIENT MAY USE OWN MEDS, ALL PO SCH (15:45)
[2018-02-13] MEDS ORDERED: CATHETER FLUSH 10 ML SYR IV PRN (16:00)
[2018-02-13] MEDS ORDERED: morphine INJ 4 MG/ML 1 ML (VIAL/SYRINGE) IV PRN (16:00)
[2018-02-13] MEDS ORDERED: NS IV 1000 ML 1,000 ML IV SCH (16:00)
[2018-02-13] MEDS ORDERED: ONDANSETRON 4 MG/2 ML (SDV) Z0FRAN IV PRN (16:00)
[2018-02-13] MEDS ORDERED: NITROGLYCERIN 0.4 MG SL TABS BTL 25'S SL PRN (16:00)
[2018-02-13] MEDS: NS IV 1000 ML 1,000 ML IV SCH (17:49)
[2018-02-13] MEDS: TICAGRELOR 90 MG TABLET (BRILINTA) PO SCH (20:46)
[2018-02-14] VITALS: BP 112/68
[2018-02-14] MEDS: NS IV 1000 ML 1,000 ML IV SCH (01:45)
[2018-02-14 04:00] VITALS: BP 129/68
[2018-02-14 05:32] LABS: BASOPHILS % (AUTO) 0 % (0-10); EOSINOPHILS # (AUTO) 0.1 10^3/uL (0.0-0.3); EOSINOPHILS % (AUTO) 1 % (0-10); HEMATOCRIT 31 % (35-52); HEMOGLOBIN 10.1 G/DL (11.5-16.0); LYMPHOCYTES # (AUTO) 1.2 X 10^3 (1.0-4.0); LYMPHOCYTES % (AUTO) 20 % (12-44); MEAN CORPUSCULAR HEMOGLOBIN 29 PG (25-34); MEAN CORPUSCULAR HGB CONC 33 G/DL (32-36); MEAN CORPUSCULAR VOLUME 88 FL (80-99); MEAN PLATELET VOLUME 10.2 FL (7.4-10.4); MONOCYTES # (AUTO) 0.5 X 10^3 (0.0-1.0); MONOCYTES % (AUTO) 8 % (0-12); NEUTROPHILS # (AUTO) 4.3 X 10^3 (1.8-7.8); NEUTROPHILS % (AUTO) 71 % (42-75); PLATELET COUNT 234 10^3/uL (130-400); RED BLOOD COUNT 3.52 10^6/uL (4.35-5.85); RED CELL DISTRIBUTION WIDTH 13.3 % (10.0-14.5); WHITE BLOOD COUNT 6.1 10^3/uL (4.3-11.0)
[2018-02-14 05:53] LABS: ALBUMIN 3.7 GM/DL (3.2-4.5); BILIRUBIN,TOTAL 0.5 MG/DL (0.1-1.0); CALCIUM 8.8 MG/DL (8.5-10.1); CREATININE SERUM 1.42 MG/DL (0.60-1.30); POTASSIUM 4.1 MMOL/L (3.6-5.0); TOTAL PROTEIN 5.8 GM/DL (6.4-8.2)
[2018-02-14 06:00] LABS: MYOGLOBIN SERUM 138.8 NG/ML (10.0-92.0)
[2018-02-14 07:50] VITALS: BP 122/59
[2018-02-14] MEDS: TICAGRELOR 90 MG TABLET (BRILINTA) PO SCH (08:31)
--- NOTE | 2018-02-14 08:42 | Discharge Summary-Hospitalist ---
Diagnosis/Chief Complaint Date of Admission Feb 13, 2018 at 12:42 pm Date of Discharge Discharge Date: Feb 14, 2018 Admission Diagnosis Assessment: Unstable angina Chest pain Elevated myoglobin History of cardiac arrest and sudden cardiac status post successful resuscitation in 2016 Status post coronary stent placement [address] Sanabria Diabetes mellitus Chronic renal insufficiency creatinine 1.7 today closely monitor with IV contrast during cardiac catheter GERD Plan: Catheterization urgently Monitor creatinine closely Diabetes mellitus management with sliding scale insulin Home meds will be evaluated and restarted Discharge Diagnosis (1) Chest pain Status: Acute (2) Unstable angina Status: Acute (3) Diabetes mellitus Status: Chronic (4) Cardiac arrest with successful resuscitation Status: Resolved (5) GERD (gastroesophageal reflux disease) Status: Chronic (6) Elevated myoglobin level Status: Acute (7) Coronary artery disease Status: Acute (8) Renal insufficiency Status: Chronic Discharge Summary Procedures/Consulations Dr Steel- Cardiology Discharge Physical Exam Allergies: Coded Allergies: lisinopril (Unverified Allergy, Unknown, PT STATED SHE DOESNT REMEMBER , ) Vitals & I&Os Vital Signs Date Time Temp Pulse Resp B/P (MAP) Pulse Ox O2 Delivery O2 Flow Rate FiO2 02/14/18 09:00 98 Room Air 02/14/18 07:50 97.4 76 18 122/59 (80) General Appearance: No Apparent Distress, WD/WN Respiratory: Lungs Clear, No Respiratory Distress Cardiovascular: Regular Rate, Rhythm, No Murmur Neurologic/Psychiatric: Alert, Oriented x3 Hospital Course Pt was admitted for unstable angina and underwent cardiac cath on 02/13 which revealed severe in stent stenosis in the LAD and she underwent restenting. Her pain resolved following cath. On day of discharge she had no complaints and was emphatically requesting discharge home. She was discharged home in stable condition to follow up with Dr Sanabria her primary green building materials designer and Dr Ashley her PCP. Labs (last 24 hrs) Laboratory Tests 02/14/18 05:21: White Blood Count 6.1, Red Blood Count 3.52L, Hemoglobin 10.1L, Hematocrit 31L, Mean Corpuscular Volume 88, Mean Corpuscular Hemoglobin 29, Mean Corpuscular Hemoglobin Concent 33, Red Cell Distribution Width 13.3, Platelet Count 234, Mean Platelet Volume 10.2, Neutrophils (%) (Auto) 71, Lymphocytes (%) (Auto) 20 , Monocytes (%) (Auto) 8, Eosinophils (%) (Auto) 1, Basophils (%) (Auto) 0, Neutrophils # (Auto) 4.3, Lymphocytes # (Auto) 1.2, Monocytes # (Auto) 0.5, Eosinophils # (Auto) 0.1, Basophils # (Auto) 0.0, Sodium Level 138, Potassium Level 4.1, Chloride Level 107, Carbon Dioxide Level 19L, Anion Gap 12, Blood Urea Nitrogen 16, Creatinine 1.42H, Estimat Glomerular Filtration Rate 36, BUN/ Creatinine Ratio 11, Glucose Level 153H, Calcium Level 8.8, Corrected Calcium 9.0, Total Bilirubin 0.5, Aspartate Amino Transf (AST/SGOT) 38H, Alanine Aminotransferase (ALT/SGPT) 18, Alkaline Phosphatase 54, Myoglobin 138.8H, Troponin I 8.73*H, Total Protein 5.8L, Albumin 3.7, Triglycerides Level 160H, Cholesterol Level 161, LDL Cholesterol Direct 105, VLDL Cholesterol 32, HDL Cholesterol 32L Patient resulted labs reviewed. Pending Labs Discussion & Recommendations Discharge Planning: >30 minutes discharge planning Discharge Home Medications: Active Scripts Active Brilinta (Ticagrelor) 90 Mg Tablet 90 Mg PO BID Hydrocodone/Acetaminophen 5/325mg Tablet (Acetaminophen/Hydrocodone Bitart) 1 Each Tablet 1 Each PO Q6H PRN Reported Pepcid (Famotidine) 20 Mg Tablet 20 Mg PO DAILY PRN Aspirin EC (Aspirin) 81 Mg Tablet.dr 81 Mg PO DAILY Atorvastatin Calcium 20 Mg Tablet 20 Mg PO HS LAST FILLED #90 15 Amlodipine Besylate 10 Mg Tablet 10 Mg PO DAILY Valsartan-Hctz 320-25 mg Tab (Valsartan/Hydrochlorothiazide) 1 Each Tablet 1 Tab PO DAILY @ 1800 Carvedilol 3.125 Mg Tablet 3.125 Mg PO DAILY Glipizide 10 Mg Tablet 10 Mg PO DAILY Levothyroxine Sodium 112 Mcg Tablet 112 Mcg PO DAILY Fish Oil 1,000 Mg Cap 1,000 Mg PO TID Instructions to patient/family Please see electronic discharge instructions given to patient. Clinical Quality Measures AMI/AHF: ASA po Prior to arrival: Yes DVT/VTE Risk/Contraindication: Risk Factor Score Per Nursin RFS Level Per Nursing on Admit: 4+=Very High Problem Qualifiers (1) Chest pain: Chest pain type: chest pain due to myocardial ischemia Ischemic chest pain type: unstable angina pectoris Qualified Codes: I20.0 - Unstable angina (2) Diabetes mellitus: Diabetes mellitus type: type 2 Diabetes mellitus shelter insulin use: without termite exterminator use Diabetes mellitus complication status: with unspecified complications Qualified Codes: E11.8 - Type 2 diabetes mellitus with unspecified complications (3) GERD (gastroesophageal reflux disease): Esophagitis presence: without esophagitis Qualified Codes: K21.9 - Gastro- esophageal reflux disease without esophagitis (4) Coronary artery disease: Coronary Disease-Associated Artery/Lesion type: [place] artery [place] vs. transplanted heart: [place] heart Associated angina: without angina Qualified Codes: I25.10 - Atherosclerotic heart disease of [place] coronary artery without angina pectoris KAREL SUTTON MD Feb 14, 2018 08:42
[2018-02-14] MEDS ORDERED: TICA90TA PO (08:44)
[2018-02-14] MEDS ORDERED: ASPIRIN E.C. 81 MG (ECOTRIN) TAB PO SCH (09:00)
--- NOTE | 2018-02-14 09:34 | Discharge Inst-Simple/Standard ---
Discharge Inst-Standard Discharge Medications New, Converted or Re-Newed RX: Transmitted to Pharmacy Patient Instructions/Follow Up Plan of Care/Instructions/FU: Please continue to take your medications as written. Please follow up with your primary care provider and spinner operator as recommended. Activity as Tolerated: Yes Discharge Diet: Cardiac Diet Return to The Hospital For: Shortness of breath, chest pain, if you feel you are getting worse. KAREL SUTTON MD Feb 14, 2018 9:34 am
--- NOTE | 2018-02-14 11:53 | Cardiology Progress Note ---
Cardiology SOAP Progress Note Subjective: No further chest pain. Objective: I&O/Vital Signs 02/14/18 02/14/18 02/14/18 02/14/18 00:00 00:00 01:00 04:00 Temp 97.6 98.0 Pulse 78 70 80 Resp 20 18 B/P (MAP) 112/68 (83) 129/68 (88) Pulse Ox 97 98 98 O2 Delivery Room Air Room Air 02/14/18 02/14/18 02/14/18 02/14/18 04:00 07:00 07:49 07:50 Temp 97.4 Pulse 69 76 Resp 18 B/P (MAP) 122/59 (80) Pulse Ox 98 98 98 O2 Delivery Room Air Room Air Room Air 02/14/18 09:00 Pulse Ox 98 O2 Delivery Room Air 02/14/18 00:00 Intake Total 1300 ml Output Total 600 ml Balance 700 ml Weight (Pounds): 167 Weight (Ounces): 0.0 Weight (Calculated Kilograms): [id number] Constitutional: appears stated age, AAO x 3; No apparent distress; well- developed, well-nourished Respiratory: No accessory muscle use, No respiratory distress, No chest tender , No chest expansion is symmetric; chest is bilaterally symmetric; No lungs clear to percussion; lungs clear to auscultation; No crackles, No rhonchi, No rales, No stridor, No wheezing, No pleural rub, No other Cardiovascular: regular rate-rhythm; No irregularly irregular, No extra beats, No parasternal heave is noted, No JVD, No edema, No bradycardia, No tachycardia , No point of maximal impulse, No cardiac thrills are palpable; S1 and S2; No gallop/S3, No gallop/S4, No diastolic murmur, No systolic murmur, No friction rub, No click, No other Gastrointestional: No tender, No soft, No round, No distended, No pulsatile mass, No organomegaly, No guarding, No rebound, No tenderness, No hernia, No mass, No audible bowel sounds, No abnormal bowel sounds, No abdominal bruits, No spleenomegaly, No other Extremities: No normal range of motion, No non-tender, No normal inspection, No pedal edema, No calf tenderness, No normal capillary refill, No pelvis stable , No calf tenderness, No inflammation, No pedal edema, No slow capillary refill , No swelling, No other, No abrasion, No clubbing, No cyanosis, No ecchymosis, No laceration, No no lower extremity edema bilateral, No significant edema, No tenderness, No wound Neurologic/Psychiatric: no motor/sensory deficits, alert, normal mood/affect, oriented x 3, power is 5/5 both on sides Skin: No normal color, No warm/dry, No cyanosis, No cool, No diaphoresis, No damp, No ecchymosis, No jaundice, No mottled, No pallor, No rash, No tattoos/ piercings, No ulcerations, No rash on exposed areas, No ulcerations on exposed areas, No other Results/Procedures: Labs Laboratory Tests 02/14/18 05:21: White Blood Count 6.1, Red Blood Count 3.52L, Hemoglobin 10.1L, Hematocrit 31L, Mean Corpuscular Volume 88, Mean Corpuscular Hemoglobin 29, Mean Corpuscular Hemoglobin Concent 33, Red Cell Distribution Width 13.3, Platelet Count 234, Mean Platelet Volume 10.2, Neutrophils (%) (Auto) 71, Lymphocytes (%) (Auto) 20 , Monocytes (%) (Auto) 8, Eosinophils (%) (Auto) 1, Basophils (%) (Auto) 0, Neutrophils # (Auto) 4.3, Lymphocytes # (Auto) 1.2, Monocytes # (Auto) 0.5, Eosinophils # (Auto) 0.1, Basophils # (Auto) 0.0, Sodium Level 138, Potassium Level 4.1, Chloride Level 107, Carbon Dioxide Level 19L, Anion Gap 12, Blood Urea Nitrogen 16, Creatinine 1.42H, Estimat Glomerular Filtration Rate 36, BUN/ Creatinine Ratio 11, Glucose Level 153H, Calcium Level 8.8, Corrected Calcium 9.0, Total Bilirubin 0.5, Aspartate Amino Transf (AST/SGOT) 38H, Alanine Aminotransferase (ALT/SGPT) 18, Alkaline Phosphatase 54, Myoglobin 138.8H, Troponin I 8.73*H, Total Protein 5.8L, Albumin 3.7, Triglycerides Level 160H, Cholesterol Level 161, LDL Cholesterol Direct 105, VLDL Cholesterol 32, HDL Cholesterol 32L A/P: Assessment/Dx: Non-STEMI, status post PCI, History of CAD, Hypertension, Diabetes, Hyperlipidemia, Chronic kidney disease stage III. Plan: Non-STEMI, status post PCI to proximal left circumflex artery and PTCA to severe in-stent restenosis of proximal LAD stent, 2 overlapping stents in the mid/distal LAD. Excellent angiographic results. Long-term aspirin, Brilinta. Continue statin, dominga/ARB, beta jaziel. Patient to follow Dr. Sanabria as an outpatient. History of CAD, continue dual antiplatelet therapy. Hypertension, will continue angiotensin receptor jzaiel. Diabetes, we'll defer to the primary team. Hyperlipidemia, continue high-dose statin therapy as well as omega-3 fatty acids. Chronic kidney disease stage III. Will require nephrology follow-up as an outpatient. She likely has diabetic nephropathy. Thank you for your consultation. Please call me if you have any questions. Flaquita Steel MD, FACP, FACC, FSCAI, FHRS, CCDS Interventional Cardiology Cardiac Electrophysiology Vascular Medicine and Endovascular Interventions Clinical Quality Measures AMI/AHF: ASA po Prior to arrival: Yes Yousuf STEEL MD Feb 14, 2018 11:53
--- NOTE | 2018-02-16 17:50 | Physician Query Clarification ---
PQ-Intro New Diagnosis Admission/Discharge Admission Date: Feb 13, 2018 at 12:42 Discharge Date: Feb 14, 2018 at 10:15 The medical record reflects the following clinical scenario: History/Risk Factors: Hx [place] Clinical Findings: Elevated troponin (over 8) Treatment: Stent placement Question: What condition best reflects the above clinical scenario? Please document below. 1. Current Non-STEMI following PCI done on 02/13 (on Dr Steel's 02/14 progress note) 2. History of NSTEMI only 3. Other, with explanation of the clinical findings. 4. Clinically undetermined, no explanation for the clinical findings. PHYSICIAN RESPONSE What condition reflects above: 1 In responding to this query, please exercise your independent professional judgment. The purpose of this communication is to more accurately reflect the complexity of your patients condition. The fact that a question is asked does not imply that any particular answer is desired or expected. Thank you for your timely response to this clarification. Requestors name: [ ] Phone # [ ] THIS PHYSICIAN QUERY FORM IS A PERMANENT PART OF THE MEDICAL RECORD TERRY LUNA Feb 16, 2018 17:50 KAREL SUTTON MD Feb 16, 2018 19:14
== END 2018-02-14 10:15 | disposition home or self-care (01) | DRG 246 ==
LOC: EDUNIT# 07:09 → ER 07:10 → CSD 12:42 → ICU 15:37
PROVIDERS: ADMIT Internal Medicine; ATTEND Internal Medicine
PROC: 027136Z Dilation of Coronary Artery, Two Arteries with Three Drug-eluting Intraluminal Devices, Percutaneous Approach (ICD-10-PCS; principal; 2018-02-13)
PROC: 02703ZZ Dilation of Coronary Artery, One Artery, Percutaneous Approach (ICD-10-PCS; 2018-02-13)
PROC: 4A023N7 Measurement of Cardiac Sampling and Pressure, Left Heart, Percutaneous Approach (ICD-10-PCS; 2018-02-13)
PROC: B2111ZZ Fluoroscopy of Multiple Coronary Arteries using Low Osmolar Contrast (ICD-10-PCS; 2018-02-13)
PROC: B3101ZZ Fluoroscopy of Thoracic Aorta using Low Osmolar Contrast (ICD-10-PCS; 2018-02-13)
DX: I25.119 Atherosclerotic heart disease of native coronary artery with unspecified angina pectoris (principal); I21.4 Non-ST elevation (NSTEMI) myocardial infarction; T82.855A Stenosis of coronary artery stent, initial encounter; I24.9 Acute ischemic heart disease, unspecified; I12.9 Hypertensive chronic kidney disease with stage 1 through stage 4 chronic kidney disease, or unspecified chronic kidney disease; N18.3 Chronic kidney disease, stage 3 (moderate); E78.5 Hyperlipidemia, unspecified; K21.9 Gastro-esophageal reflux disease without esophagitis; E11.21 Type 2 diabetes mellitus with diabetic nephropathy; E03.9 Hypothyroidism, unspecified; I25.2 Old myocardial infarction; Z86.74 Personal history of sudden cardiac arrest; Z95.5 Presence of coronary angioplasty implant and graft; Z79.84 Long term (current) use of oral hypoglycemic drugs
CPT/HCPCS: 36221; 36415; 71045; 80053; 80061; 83735; 83874; 84484; 85025; 85347; 85379; 85610; 85730; 93005; 93041; 93306; 93458; 96361; 96365; 96375

== ENCOUNTER 2018-07-20 06:31 | Outpatient (CLI) | payer MEDICARE ==
[~2018-07-20] VITALS: Ht 157.5 cm; Wt 75.7 kg
[~2018-07-20 06:31] MED LIST changes: -AMLO10TA6 PO; +AMLO10TA7 PO
[2018-07-20] MEDS ORDERED: LOSA100T57 PO (15:51)
[2018-07-20] MEDS ORDERED: METF-399 PO (15:51)
[2018-07-20] MEDS ORDERED: CARV6.252 PO (15:51)
[2018-07-20] MEDS ORDERED: TICA90TA PO (15:51)
[2018-07-20] MEDS ORDERED: FERR324T4 PO (15:51)
== END 2018-07-20 15:53 | disposition home or self-care (01) ==
LOC: PREOP 06:31
PROVIDERS: ATTEND Surgery
DX: Z01.818 Encounter for other preprocedural examination (principal)

== ENCOUNTER 2018-07-27 08:48 | Day surgery (SDC) | payer MEDICARE ==
[~2018-07-27] VITALS: Ht 157.5 cm; Wt 75.7 kg
[~2018-07-27 08:48] MED LIST changes: +CARV6.252 PO; +FERR324T4 PO; +LOSA100T57 PO
[2018-07-27] MEDS ORDERED: NS IV 500 ML 500 ML ONE (08:55)
[2018-07-27] MEDS ORDERED: NS IV 500 ML 500 ML IV PRN (09:08)
[2018-07-27 09:10] VITALS: BP 146/69
[2018-07-27] MEDS ORDERED: fentaNYL INJECTION 100 MCG/2 ML AMP IVP ONE (09:15)
[2018-07-27] MEDS ORDERED: LIDOCAINE JELLY 2% 6 ML SYRINGE MM PRN (09:15)
[2018-07-27] MEDS ORDERED: MIDAZOLAM 2 MG/2 ML (VERSED) VIAL IVP ONE (09:15)
--- NOTE | 2018-07-27 09:57 | Conscious Sedation/ASA ---
Conscious Sedation Pre-Proced Time 09:30 ASA Score 2 For ASA 3 and 4: Consider anesthesia and medical clearance. Also, for patients with a history of failed moderate sedation consider anesthesia. Airway Lungs Heart ASA score ASA 1: a normal healthy patient ASA 2: a patient with a mild systemic disease (mid diabetes, controlled hypertension, obesity ASA 3: a patient with a severe systemic disease that limits activity (angina , COPD, prior Myocardial infarction) ASA 4: a patient with an incapacitating disease that is a constant threat to life (CHF, renal failure) ASA 5: a moribund patient not expected to survive 24 hrs. (ruptured aneurysm) ASA 6: a declared brain- patient whose organs are being harvested. For emergent operations, add the letter E after the classification Mallampati Classification Grade 2 Sedation Plan Analgesia, Amnesia, Plan communicated to team members, Discussed options with patient/fam, Discussed risks with patient/fam The patient is an appropriate candidate to undergo the planned procedure, sedation, and anesthesia. The patient immediately re-assessed prior to indication. DAMIAN CABA MD July 27, 2018 09:57
--- NOTE | 2018-07-27 09:57 | Progress Note-Pre Operative ---
Pre-Operative Progress Note H&P Reviewed The H&P was reviewed, patient examined and no changes noted. Date Seen by Provider: July 27, 2018 Time Seen by Provider: 09:30 Date H&P Reviewed: July 27, 2018 Time H&P Reviewed: 09:30 Pre-Operative Diagnosis: screening o DAMIAN CABA MD July 27, 2018 09:57
--- NOTE | 2018-07-27 09:59 | Discharge Inst-Surgical ---
D/C Lap Instructions-GERTRUDIS Follow Up Activity as tolerated High Fiber Diet 25g or more per day Avoid Alcohol, Caffeine, Spicy [place] and Acid foods. Drink 64 fluid oz or more of fluids per day. Symptoms to Report: Fever over 101 degree F, Nausea/Vomiting If any problems/questions: Contact your physician or go to Emergency Room DAMIAN CABA MD July 27, 2018 09:58
[2018-07-27] MEDS ORDERED: ONDANSETRON 4 MG/2 ML (SDV) Z0FRAN IV PRN (10:00)
[2018-07-27] MEDS ORDERED: morphine INJ 10 MG/ML 1ML (SYR OR VIAL) IV PRN (10:00)
[2018-07-27] MEDS ORDERED: ACETAMINOPHEN 325 MG TABLET PO PRN (10:00)
[2018-07-27] MEDS ORDERED: HYDROcodone/APAP 5 MG/325 MG (LORTAB) TAB PO PRN (10:00)
[2018-07-27] MEDS ORDERED: LIDOCAINE JELLY 2% 6 ML SYRINGE ONE (10:02)
[2018-07-27] MEDS ORDERED: fentaNYL INJECTION 100 MCG/2 ML AMP ONE (10:03)
[2018-07-27] MEDS ORDERED: MIDAZOLAM 2 MG/2 ML (VERSED) VIAL ONE ×3 (10:03)
[2018-07-27 11:15] VITALS: BP 129/58
--- NOTE | 2018-07-27 11:19 | Progress Note-Post Operative ---
Post-Operative Progess Note Surgeon (s)/Founder And President (s) Surgeon DAMIAN CABA MD Founder And President: none Pre-Operative Diagnosis screening colo Post-Operative Diagnosis chronic stage 3 ext hemorrhoids, stage 2 int, mild sigmoid diverticulosis. Procedure & Operative Findings Date of Procedure 07/27/18 Procedure Performed/Findings colonoscopy Anesthesia Type cs Estimated Blood Loss Estimated blood loss (mL): minimal Specimens/Packing Specimens Removed none DAMIAN CABA MD July 27, 2018 11:18
[2018-07-27 11:45] VITALS: BP 140/57
[2018-07-27 12:15] VITALS: BP 110/69
--- NOTE | 2018-07-27 18:32 | OPERATIVE REPORT ---
DATE OF SERVICE: 07/27/2018 ATTENDING PRIMARY CARE PHYSICIAN: Dr. Ashley. PREOPERATIVE DIAGNOSIS: Screening colonoscopy. POSTOPERATIVE DIAGNOSES: Chronic moderate stage between stage II and III external hemorrhoids, stage II internal hemorrhoids, mild sigmoid diverticulosis. PROCEDURE: Colonoscopy. SURGEON: Damian Caba MD ANESTHESIA: Conscious sedation. ESTIMATED BLOOD LOSS: Minimal. FINDINGS: As above in the postop. DISPOSITION: The patient tolerated the procedure well. INDICATIONS: The patient is a 78-year-old female in need of a screening colonoscopy. At this time in her life, she has not had a colonoscopy. She reports that for the most part she is doing well, does not report any major issues with diarrhea nor constipation as well as no red blood per rectum nor any dark tarry stools. She also does not report any family history of colon cancer. DESCRIPTION OF PROCEDURE: The patient was brought to the endoscopy suite, laid in left lateral decubitus position. After adequate IV pain and sedating medications and conscious sedation anesthesia, a digital rectal examination was performed. There were chronic between stage II and III external hemorrhoids as well as stage II internal hemorrhoids identified. There was mild edema of the external hemorrhoid cushions most likely due to the colonic preparation. Normal sphincter tone was felt and there were no palpable masses. The endoscope was then intubated to the anus and rectum gently insufflated. The endoscope was then advanced to the valves of [place] of the rectum with no polyps or any neoplasms identified. We then proceeded with the sigmoid colon where a mild sigmoid diverticulosis identified. There were no mucosal inflammatory changes to indicate any active diverticulitis. The endoscope was then advanced to the remainder of the descending, transverse and ascending colon to the cecum. These segments were normal. There were no polyps or any neoplasms identified throughout the colon or rectum. The endoscope was then slowly withdrawn while taking a second look and suctioning residual air with no additional findings. The patient tolerated the procedure well. We will recommend a high fiber diet with at least 25 grams of fiber daily as well as significant amounts of water to promote soft stools on a daily basis. She does not have any family history of colon cancer and she may wait 10 years for next colonoscopy; however, sooner if she becomes symptomatic. Job ID: [id number] DocumentID: [id number] Dictated Date: 07/27/2018 11:07:51 Price Checker Date: 07/27/2018 18:32:07 Dictated By: DAMIAN CABA MD
== END 2018-07-27 12:15 | disposition home or self-care (01) ==
LOC: ENDO 08:48
PROVIDERS: ATTEND Surgery
DX: Z12.11 Encounter for screening for malignant neoplasm of colon (principal); K57.30 Diverticulosis of large intestine without perforation or abscess without bleeding; K64.2 Third degree hemorrhoids; I10 Essential (primary) hypertension; E78.00 Pure hypercholesterolemia, unspecified; E11.9 Type 2 diabetes mellitus without complications; E03.9 Hypothyroidism, unspecified; I25.2 Old myocardial infarction; Z95.5 Presence of coronary angioplasty implant and graft; Z79.82 Long term (current) use of aspirin; Z79.899 Other long term (current) drug therapy; Z79.84 Long term (current) use of oral hypoglycemic drugs
CPT/HCPCS: 82962

== ENCOUNTER 2018-09-21 10:03 | Outpatient (RCR) | payer MEDICARE ==
[2018-07-06 12:14] LABS: ALANINE AMINOTRANSFERASE 17 U/L (0-55); ALBUMIN 4.6 GM/DL (3.2-4.5); ALKALINE PHOSPHATASE 70 U/L (40-136); BILIRUBIN,TOTAL 0.5 MG/DL (0.1-1.0); BUN/CREATININE RATIO 16; CALCIUM 10.2 MG/DL (8.5-10.1); CARBON DIOXIDE 20 MMOL/L (21-32); CHLORIDE 108 MMOL/L (98-107); CREATININE SERUM 1.59 MG/DL (0.60-1.30); GFR ESTIMATED 31; GLUCOSE 177 MG/DL (70-105); POTASSIUM 4.8 MMOL/L (3.6-5.0); SODIUM 139 MMOL/L (135-145); TOTAL PROTEIN 7.7 GM/DL (6.4-8.2)
[2018-07-20 09:10] LABS: ABSOLUTE RETIC # 64 10e9/L (24-90); BASOPHILS % (AUTO) 0 % (0-10); EOSINOPHILS # (AUTO) 0.2 10^3/uL (0.0-0.3); EOSINOPHILS % (AUTO) 4 % (0-10); HEMATOCRIT 36 % (35-52); HEMOGLOBIN 11.4 G/DL (11.5-16.0); LYMPHOCYTES # (AUTO) 1.5 X 10^3 (1.0-4.0); LYMPHOCYTES % (AUTO) 28 % (12-44); MEAN CORPUSCULAR HGB CONC 32 G/DL (32-36); MEAN CORPUSCULAR VOLUME 86 FL (80-99); MONOCYTES # (AUTO) 0.5 X 10^3 (0.0-1.0); MONOCYTES % (AUTO) 9 % (0-12); NEUTROPHILS # (AUTO) 3.2 X 10^3 (1.8-7.8); NEUTROPHILS % (AUTO) 60 % (42-75); PLATELET COUNT 260 10^3/uL (130-400); RED CELL DISTRIBUTION WIDTH 14.8 % (10.0-14.5); RETICULOCYTE % 1.53 % (0.50-2.40); WHITE BLOOD COUNT 5.3 10^3/uL (4.3-11.0)
[2018-07-20 09:11] LABS: MEAN CORPUSCULAR HEMOGLOBIN 27 PG (25-34)
[2018-07-20 09:54] LABS: BAND NEUTROPHILS 2 %; BASOPHILS % (MANUAL) 0 %; ELLIPT/OVALOCYTES SLIGHT; EOSINOPHILS % (MANUAL) 6 %; LYMPHOCYTES % (MANUAL) 32 %; MONOCYTES % (MANUAL) 7 %; NEUTROPHILS % (MANUAL) 53 %
[2018-09-19 10:50] LABS: BASOPHILS % (AUTO) 0 % (0-10); EOSINOPHILS # (AUTO) 0.2 10^3/uL (0.0-0.3); EOSINOPHILS % (AUTO) 3 % (0-10); HEMATOCRIT 39 % (35-52); LYMPHOCYTES # (AUTO) 1.6 X 10^3 (1.0-4.0); LYMPHOCYTES % (AUTO) 25 % (12-44); MEAN CORPUSCULAR HEMOGLOBIN 30 PG (25-34); MEAN CORPUSCULAR HGB CONC 33 G/DL (32-36); MEAN CORPUSCULAR VOLUME 90 FL (80-99); MEAN PLATELET VOLUME 9.8 FL (7.4-10.4); MONOCYTES # (AUTO) 0.5 X 10^3 (0.0-1.0); MONOCYTES % (AUTO) 7 % (0-12); NEUTROPHILS # (AUTO) 4.1 X 10^3 (1.8-7.8); NEUTROPHILS % (AUTO) 65 % (42-75); PLATELET COUNT 228 10^3/uL (130-400); RED CELL DISTRIBUTION WIDTH 15.6 % (10.0-14.5); WHITE BLOOD COUNT 6.4 10^3/uL (4.3-11.0)
[2018-09-19 11:10] LABS: ALANINE AMINOTRANSFERASE 17 U/L (0-55); ALBUMIN 4.6 GM/DL (3.2-4.5); ALKALINE PHOSPHATASE 96 U/L (40-136); BILIRUBIN,TOTAL 0.4 MG/DL (0.1-1.0); BUN/CREATININE RATIO 13; CALCIUM 9.7 MG/DL (8.5-10.1); CARBON DIOXIDE 20 MMOL/L (21-32); CHLORIDE 105 MMOL/L (98-107); GFR ESTIMATED 31; GLUCOSE 178 MG/DL (70-105); SODIUM 137 MMOL/L (135-145); TOTAL PROTEIN 7.3 GM/DL (6.4-8.2)
[~2018-09-21 10:03] MED LIST changes: +FERRIC CARBOXYMALTOSE (CANCER) 750 MG in NS (IVPB) CANCER CENTER 250 ML IV SCH
== END 2018-10-04 | disposition home or self-care (01) ==
LOC: ONC 10:03
PROVIDERS: ATTEND Internal Medicine Hematology & Oncology
DX: D50.9 Iron deficiency anemia, unspecified (principal); R06.02 Shortness of breath; R53.83 Other fatigue; I12.9 Hypertensive chronic kidney disease with stage 1 through stage 4 chronic kidney disease, or unspecified chronic kidney disease; E11.22 Type 2 diabetes mellitus with diabetic chronic kidney disease; N18.9 Chronic kidney disease, unspecified; I25.10 Atherosclerotic heart disease of native coronary artery without angina pectoris; Z79.899 Other long term (current) drug therapy; Z79.82 Long term (current) use of aspirin; E03.9 Hypothyroidism, unspecified; I27.20 Pulmonary hypertension, unspecified; I08.1 Rheumatic disorders of both mitral and tricuspid valves; Z95.5 Presence of coronary angioplasty implant and graft
CPT/HCPCS: 36415; 80053; 82668; 82728; 83540; 84443; 85007; 85025; 85027; 85045; 96365; 99213; 99214

== ENCOUNTER 2018-12-22 09:46 | Outpatient (RCR) | payer MEDICARE ==
[2018-12-21 10:09] LABS: BASOPHILS % (AUTO) 1 % (0-10); EOSINOPHILS # (AUTO) 0.1 10^3/uL (0.0-0.3); EOSINOPHILS % (AUTO) 3 % (0-10); HEMATOCRIT 37 % (35-52); HEMOGLOBIN 12.5 G/DL (11.5-16.0); LYMPHOCYTES % (AUTO) 22 % (12-44); MEAN CORPUSCULAR HEMOGLOBIN 32 PG (25-34); MEAN CORPUSCULAR HGB CONC 34 G/DL (32-36); MEAN CORPUSCULAR VOLUME 96 FL (80-99); MEAN PLATELET VOLUME 10.1 FL (7.4-10.4); MONOCYTES # (AUTO) 0.3 X 10^3 (0.0-1.0); MONOCYTES % (AUTO) 8 % (0-12); NEUTROPHILS # (AUTO) 2.9 X 10^3 (1.8-7.8); NEUTROPHILS % (AUTO) 66 % (42-75); PLATELET COUNT 209 10^3/uL (130-400); RED CELL DISTRIBUTION WIDTH 12.1 % (10.0-14.5); WHITE BLOOD COUNT 4.4 10^3/uL (4.3-11.0)
[2018-12-21 10:29] LABS: ALANINE AMINOTRANSFERASE 16 U/L (0-55); ALBUMIN 4.6 GM/DL (3.2-4.5); ALKALINE PHOSPHATASE 71 U/L (40-136); BILIRUBIN,TOTAL 0.5 MG/DL (0.1-1.0); BUN/CREATININE RATIO 11; CALCIUM 9.8 MG/DL (8.5-10.1); CARBON DIOXIDE 23 MMOL/L (21-32); CHLORIDE 104 MMOL/L (98-107); CREATININE SERUM 1.68 MG/DL (0.60-1.30); GFR ESTIMATED 29; GLUCOSE 153 MG/DL (70-105); POTASSIUM 5.2 MMOL/L (3.6-5.0); SODIUM 138 MMOL/L (135-145); TOTAL PROTEIN 7.3 GM/DL (6.4-8.2)
[~2018-12-22 09:46] MED LIST changes: -FERRIC CARBOXYMALTOSE (CANCER) 750 MG in NS (IVPB) CANCER CENTER 250 ML IV SCH
== END 2019-03-21 | disposition home or self-care (01) ==
LOC: ONC 09:46
PROVIDERS: ATTEND Internal Medicine Hematology & Oncology
DX: D50.9 Iron deficiency anemia, unspecified (principal); R06.02 Shortness of breath; R53.83 Other fatigue; I12.9 Hypertensive chronic kidney disease with stage 1 through stage 4 chronic kidney disease, or unspecified chronic kidney disease; E11.22 Type 2 diabetes mellitus with diabetic chronic kidney disease; N18.9 Chronic kidney disease, unspecified; I25.10 Atherosclerotic heart disease of native coronary artery without angina pectoris; Z79.899 Other long term (current) drug therapy; Z79.82 Long term (current) use of aspirin; E03.9 Hypothyroidism, unspecified; I27.20 Pulmonary hypertension, unspecified; I08.1 Rheumatic disorders of both mitral and tricuspid valves; Z95.5 Presence of coronary angioplasty implant and graft
CPT/HCPCS: 36415; 80053; 82728; 83540; 85025; 99213

== ENCOUNTER 2019-04-05 14:41 | Outpatient (RCR) | payer MEDICARE ==
[2019-04-03 12:01] LABS: BASOPHILS % (AUTO) 0 % (0-10); EOSINOPHILS # (AUTO) 0.2 10^3/uL (0.0-0.3); EOSINOPHILS % (AUTO) 2 % (0-10); HEMATOCRIT 37 % (35-52); HEMOGLOBIN 12.2 G/DL (11.5-16.0); LYMPHOCYTES # (AUTO) 1.3 X 10^3 (1.0-4.0); LYMPHOCYTES % (AUTO) 19 % (12-44); MEAN CORPUSCULAR HEMOGLOBIN 31 PG (25-34); MEAN CORPUSCULAR HGB CONC 33 G/DL (32-36); MEAN CORPUSCULAR VOLUME 95 FL (80-99); MEAN PLATELET VOLUME 9.9 FL (7.4-10.4); MONOCYTES # (AUTO) 0.5 X 10^3 (0.0-1.0); MONOCYTES % (AUTO) 7 % (0-12); NEUTROPHILS % (AUTO) 72 % (42-75); PLATELET COUNT 230 10^3/uL (130-400); RED CELL DISTRIBUTION WIDTH 12.2 % (10.0-14.5)
[2019-04-03 12:26] LABS: ALBUMIN 4.5 GM/DL (3.2-4.5); BILIRUBIN,TOTAL 0.4 MG/DL (0.1-1.0); CALCIUM 9.5 MG/DL (8.5-10.1); CREATININE SERUM 1.62 MG/DL (0.60-1.30); POTASSIUM 5.1 MMOL/L (3.6-5.0)
[~2019-04-05 14:41] MED LIST changes: -VALS1TAB74 PO; +VALS1TAB75 PO
[2019-04-28] MEDS ORDERED: CEFD300C3 PO (18:52)
== END 2019-07-02 | disposition home or self-care (01) ==
LOC: ONC 14:41
PROVIDERS: ATTEND Internal Medicine Hematology & Oncology
DX: D50.8 Other iron deficiency anemias (principal); R06.02 Shortness of breath; R53.83 Other fatigue; I12.9 Hypertensive chronic kidney disease with stage 1 through stage 4 chronic kidney disease, or unspecified chronic kidney disease; E11.22 Type 2 diabetes mellitus with diabetic chronic kidney disease; N18.9 Chronic kidney disease, unspecified; I25.10 Atherosclerotic heart disease of native coronary artery without angina pectoris; E78.5 Hyperlipidemia, unspecified; I65.29 Occlusion and stenosis of unspecified carotid artery; E03.9 Hypothyroidism, unspecified; I27.21 Secondary pulmonary arterial hypertension; I08.1 Rheumatic disorders of both mitral and tricuspid valves; Z95.5 Presence of coronary angioplasty implant and graft; Z79.899 Other long term (current) drug therapy; Z79.82 Long term (current) use of aspirin; Z80.9 Family history of malignant neoplasm, unspecified; Z98.890 Other specified postprocedural states
CPT/HCPCS: 80053; 82728; 83540; 85025; 99213

== ENCOUNTER 2019-04-28 17:05 | Emergency (ER) | payer MEDICARE ==
[~2019-04-28] VITALS: Ht 157.5 cm; Wt 75.0 kg
[~2019-04-28 17:05] MED LIST changes: +VALS1TAB74 PO; -VALS1TAB75 PO
[2019-04-28] MEDS ORDERED: NS IV 500 ML 500 ML IV ONE (17:31)
[2019-04-28 17:38] LABS: BASOPHILS % (AUTO) 1 % (0-10); EOSINOPHILS # (AUTO) 0.1 10^3/uL (0.0-0.3); EOSINOPHILS % (AUTO) 2 % (0-10); HEMATOCRIT 39 % (35-52); HEMOGLOBIN 13.3 G/DL (11.5-16.0); LYMPHOCYTES # (AUTO) 1.5 X 10^3 (1.0-4.0); LYMPHOCYTES % (AUTO) 25 % (12-44); MEAN CORPUSCULAR HEMOGLOBIN 32 PG (25-34); MEAN CORPUSCULAR HGB CONC 34 G/DL (32-36); MEAN CORPUSCULAR VOLUME 94 FL (80-99); MEAN PLATELET VOLUME 10.6 FL (7.4-10.4); MONOCYTES # (AUTO) 0.4 X 10^3 (0.0-1.0); MONOCYTES % (AUTO) 7 % (0-12); NEUTROPHILS # (AUTO) 3.9 X 10^3 (1.8-7.8); NEUTROPHILS % (AUTO) 65 % (42-75); PLATELET COUNT 249 10^3/uL (130-400); RED CELL DISTRIBUTION WIDTH 12.6 % (10.0-14.5); WHITE BLOOD COUNT 6.1 10^3/uL (4.3-11.0)
--- NOTE | 2019-04-28 17:38 | ED Neurological Problem ---
General Chief Complaint: General Problems/Pain Stated Complaint: CONFUSED Nursing Triage Note: PT AMB TO [facility] 6 WITH COMPLAINT OF CONUFSION. PER SON, STARTING AT 1430, PT HAS BEEN ANSWERING QUESTIONS INAPPROPIATELY. STATES IS GIVING ODD ANSWERS. PT IS ALERT AND ORIENTED AND ANSWERS QUESTIONS APPROPRIATELY AT HOSPITAL. Nursing Sepsis Screen: No Definite Risk Source: patient Exam Limitations: no limitations (SABRINA RIOS MD) History of Present Illness Date Seen by Provider: Apr 28, 2019 Time Seen by Provider: 17:26 Initial Comments Here with report of confusion per the family. Son states that she was not answering questions appropriately and that started about 2:30 PM. The confusion was intermittent. She has been under a lot of stress recently. No facial droop or focal weakness noted or reported. She reports taking her medications as prescribed. Timing/Duration: 1-3 hours Severity: mild Associated Symptoms: confusion; No fatigue, No fever/chills, No muscle spasms, No nausea/vomiting, No paresthesia, No seizures, No slurred speech, No trouble walking, No vision changes, No weakness (SABRINA RIOS MD) Allergies and Home Medications Allergies Coded Allergies: lisinopril (Unverified Allergy, Unknown, PT STATED SHE DOESNT REMEMBER , 11/28/14) Home Medications Amlodipine Besylate 10 Mg Tablet, 10 MG PO DAILY, (Reported) Aspirin 81 Mg Tablet.dr, 81 MG PO DAILY, (Reported) Atorvastatin Calcium 20 Mg Tablet, 20 MG PO HS, (Reported) Carvedilol 6.25 Mg Tablet, 6.25 MG PO BID, (Reported) Cefdinir 300 Mg Capsule, 300 MG PO BID Prescribed by: MARILYN EDGAR on 04/28/191851 Famotidine 20 Mg Tablet, 20 MG PO DAILY PRN for ACID REFLUX, (Reported) Ferrous Sulfate 324 Mg Tablet.dr, 324 MG PO DAILY, (Reported) Glipizide 10 Mg Tablet, 10 MG PO DAILY, (Reported) Levothyroxine Sodium 112 Mcg Tablet, 112 MCG PO DAILY, (Reported) Losartan Potassium 100 Mg Tablet, 100 MG PO DAILY, (Reported) Metformin HCl 1,000 Mg Tablet, 1,000 MG PO BID, (Reported) Ticagrelor 90 Mg Tablet, 90 MG PO BID, (Reported) Patient Home Medication List Home Medication List Reviewed: Yes (SABRINA RIOS MD) Review of Systems Review of Systems Constitutional: see HPI; No chills, No fever, No weakness Eyes: No Symptoms Reported Ears, Nose, Mouth, Throat: no symptoms reported Respiratory: no symptoms reported Cardiovascular: no symptoms reported Gastrointestinal: no symptoms reported Genitourinary: no symptoms reported Musculoskeletal: no symptoms reported Skin: no symptoms reported Psychiatric/Neurological: See HPI, Cognitive Dysfunction, Weakness Endocrine: No Symptoms Reported (SABRINA RIOS MD) All Other Systems Reviewed Negative Unless Noted: Yes (SABRINA RIOS MD) Past Nquuxeb-Upszwu-Cpmonj Hx Past Med/Social Hx: Reviewed Nursing Past Med/Soc Hx (SABRINA RIOS MD) Patient Social History Alcohol Use: Denies Use Recreational Drug Use: No Smoking Status: Former Smoker 2nd Hand Smoke Exposure: No Recent Foreign Travel: No Contact w/Someone Who Travel: No Recent Infectious Disease Expo: No Recent Hopitalizations: No (SABRINA RIOS MD) Immunizations Up To Date Tetanus Booster (TDap): More than 5yrs PED Vaccines UTD: Yes Date of Pneumonia Vaccine: Nov 29, 2011 Date of Influenza Vaccine: Dec 27, 2018 (SABRINA RIOS MD) Seasonal Allergies Seasonal Allergies: No (SABRINA RIOS MD) Past Medical History Surgeries: Yes (pancreas blockage-opened it up) Coronary Stent, Gallbladder, Hysterectomy Respiratory: No Cardiac: Yes (CARDIAC ARREST WITH VTACH, STENTS) Coronary Artery Disease, Hypertension Neurological: Yes Stroke, TIA Female Reproductive Disorders: Denies 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 Sexually Transmitted Disease: No HIV/AIDS: No Genitourinary: No Gastrointestinal: No Gastroesophageal Reflux Musculoskeletal: Yes Arthritis Endocrine: Yes Hypothyroidsim, Diabetes, Non-Insulin dep HEENT: Yes (CATARACTS REMOVED) Loss of Vision: Denies Hearing Impairment: Denies Cancer: No Psychosocial: No Integumentary: No 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 0.0oz. 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, no motor/sensory deficits, alert, normal mood/affect, oriented x 3 Crainal Nerves: normal hearing, normal speech, PERRL Coordination/Gait: normal finger to nose Motor/Sensory: no motor deficit, no sensory deficit, no pronator drift Skin: normal color, warm/dry (SABRINA RIOS MD) Focused Exam Lactate Level 04/28/19 18:34: Lactic Acid Level 0.94 (IRENEMARILYN Grace ) Lactic Acid Level Laboratory Tests Test 04/28/19 18:34 Lactic Acid Level 0.94 MMOL/L (0.50-2.00) (IRENEMARILYN Grace ) Progress/Results/Core Measures Results/Orders Lab Results Laboratory Tests Test 04/28/19 17:09 04/28/19 17:19 04/28/19 17:42 04/28/19 18:34 Range/Units Glucometer 159 H 70-110 MG/DL White Blood Count 6.1 4.3-11.0 10^3/uL Red Blood Count 4.16 L 4.35-5.85 10^6/uL Hemoglobin 13.3 11.5-16.0 G/DL Hematocrit 39 35-52 % Mean Corpuscular Volume 94 80-99 FL Mean Corpuscular Hemoglobin 32 25-34 PG Mean Corpuscular Hemoglobin Concent 34 32-36 G/DL Red Cell Distribution Width 12.6 10.0-14.5 % Platelet Count 249 130-400 10^3/uL Mean Platelet Volume 10.6 H 7.4-10.4 FL Neutrophils (%) (Auto) 65 42-75 % Lymphocytes (%) (Auto) 25 12-44 % Monocytes (%) (Auto) 7 0-12 % Eosinophils (%) (Auto) 2 0-10 % Basophils (%) (Auto) 1 0-10 % Neutrophils # (Auto) 3.9 1.8-7.8 X 10^3 Lymphocytes # (Auto) 1.5 1.0-4.0 X 10^3 Monocytes # (Auto) 0.4 0.0-1.0 X 10^3 Eosinophils # (Auto) 0.1 0.0-0.3 10^3/uL Basophils # (Auto) 0.0 0.0-0.1 10^3/uL Prothrombin Time 13.2 12.2-14.7 SEC INR Comment 1.0 0.8-1.4 Activated Partial Thromboplast Time 22 L 24-35 SEC D-Dimer 0.64 H 0.00-0.49 UG/ML Sodium Level 138 135-145 MMOL/L Potassium Level 5.2 H 3.6-5.0 MMOL/L Chloride Level 107 98-107 MMOL/L Carbon Dioxide Level 18 L 21-32 MMOL/L Anion Gap 13 5-14 MMOL/L Blood Urea Nitrogen 27 H 7-18 MG/DL Creatinine 1.81 H 0.60-1.30 MG/DL Estimat Glomerular Filtration Rate 27 BUN/Creatinine Ratio 15 Glucose Level 153 H 70-105 MG/DL Calcium Level 10.1 8.5-10.1 MG/DL Corrected Calcium 8.5-10.1 MG/DL Magnesium Level 1.9 1.6-2.4 MG/DL Total Bilirubin 0.5 0.1-1.0 MG/DL Aspartate Amino Transf (AST/SGOT) 30 5-34 U/L Alanine Aminotransferase (ALT/SGPT) 21 0-55 U/L Alkaline Phosphatase 73 40-136 U/L Troponin I < 0.028 <0.028 NG/ML Total Protein 8.0 6.4-8.2 GM/DL Albumin 4.7 H 3.2-4.5 GM/DL Amylase Level 89 25-125 U/L Lipase 72 8-78 U/L TSH [place] Testing 2.62 0.35-4.94 UIU/ML Urine Color YELLOW Urine Clarity SL CLOUDY Urine pH 5.5 5-9 Urine Specific [place] 1.015 L 1.016-1.022 Urine Protein 1+ H NEGATIVE Urine Glucose (UA) NEGATIVE NEGATIVE Urine Ketones NEGATIVE NEGATIVE Urine Nitrite NEGATIVE NEGATIVE Urine Bilirubin NEGATIVE NEGATIVE Urine Urobilinogen 0.2 < = 1.0 MG/DL Urine Leukocyte Esterase 1+ H NEGATIVE Urine RBC (Auto) TRACE-I NEGATIVE Urine RBC 0-2 /HPF Urine WBC 10-25 H /HPF Urine Squamous Epithelial Cells NONE /HPF Urine Crystals NONE /LPF Urine Bacteria LARGE H /HPF Urine Casts NONE /LPF Urine Mucus NEGATIVE /LPF Urine Culture Indicated YES Lactic Acid Level 0.94 0.50-2.00 MMOL/L (MARILYN EDGAR DO) Micro Results Microbiology 04/28/19 Blood Culture - Preliminary, Resulted No growth 04/28/19 Blood Culture - Preliminary, Resulted No growth 04/28/19 Influenza Types A,B Antigen (PRICILLA) - Final, Complete 04/28/19 Urine Culture - Preliminary, Resulted Probable E.coli (MARILYN EDGAR DO) My Orders Orders - MARILYN EDGAR DO Lactic Acid Analyzer (04/28/19 17:58) Blood Culture (04/28/19 17:58) Ed Iv/Invasive Line Start (04/28/19 17:58) Amylase (04/28/19 17:58) Lipase (04/28/19 17:58) Magnesium (04/28/19 17:58) Influenza A And B Antigens (04/28/19 17:58) Ceftriaxone For Iv Use (Rocephin For I (04/28/19 18:00) Ed Iv/Invasive Line Start (04/28/19 18:40) Ns Iv 1000 Ml (Sodium Chloride 0.9%) (04/28/19 18:40) (MARILYN EDGAR DO) Medications Given in ED (MARILYN EDGAR DO) Vital Signs/I&O 04/28/19 04/28/19 17:07 20:16 Temp 37.0 37.0 Pulse 53 74 Resp 16 16 B/P (MAP) 202/108 (139) 148/72 (139) Pulse Ox 97 98 O2 Delivery Room Air (MARILYN EDGAR DO) Blood Pressure Mean: 139 FSBG Bedside Testing Finger Stick Blood Glucose: 159 (SABRINA RIOS MD) Progress Progress Note : Progress Note Seen and evaluated. IV, labs, EKG, chest x-ray, CT head, straight catheter UA and normal saline 500 mL bolus ordered. I did do an NIH stroke scale and that was 0. She is able answer all questions without difficulty. 1750: Care transferred to Dr. Edgar pending labs and CT. (SABRINA RIOS MD) Progress Note : Progress Note 1749-ASSUMED CARE FROM DR. RIOS, ALL RESULTS PENDING AT THIS TIME. ON RETURN FROM CT, PT STATES SHE FEELS FINE, HAS NO SYMPTOMS UNEVENTFUL ER STAY PT AND FAMILY FEEL COMFORTABLE TAKING HER HOME. SON LIVES WITH HER AND DAUGHTER LIVES NEARBY. (MARILYN EDGAR DO) Initial ECG Impression Date: Apr 28, 2019 Initial ECG Impression Time: 17:10 Initial ECG Rate: 91 Initial ECG Rhythm: Normal Sinus Initial ECG Comparisson: Unchanged (02/13/18) Comment Sinus rhythm with right bundle branch block. No evidence of ST elevation AL. Interpreted by me. (SABRINA RIOS MD) Diagnostic Imaging Comments CXR--NO ACUTE PROCESS CT HEAD--ATROPHY, OLD / STABLE LEFT BASAL GANGLIA INFARCT-UNCHANGED FROM 2014. LEFT PARIETO-TEMPORAL INFARCT--NEW FROM 2015, BUT APPEARS TO BE CHRONIC. PER RADIOLOGIST REPORTS AT 1835 Reviewed: Reviewed by Me (MARILYN EDGAR DO) Departure Impression Primary Impression: Urinary tract infection Additional Impressions: Transient confusion Mild dehydration Chronic renal insufficiency MILD HYPERKALEMIA NIDDM HTN (hypertension) OLD CVA'S NOTED ON CT, WITHOUT LATE EFFECTS Disposition: 01 HOME, SELF-CARE Condition: Improved Departure-Patient Inst. Referrals: NUNU MUSA MD Patient Instructions: Urinary Tract Infection, Adult (DC), Dehydration, Adult (DC), Delirium (Confusion) (DC), Chronic Kidney Disease (DC) Add. Discharge Instructions: INCREASE YOUR FLUID INTAKE FOLLOW UP WITH YOUR DR NEXT WEEK FOR FURTHER CARE RETURN TO ER IF WORSE All discharge instructions reviewed with patient and/or family. Voiced understanding. Scripts Cefdinir (Cefdinir) 300 Mg Capsule 300 MG PO BID for FOR INFECTION, #20 CAP Prov: MARILYN EDGAR DO 04/28/19 SABRINA RIOS MD Apr 28, 2019 17:37 MARILYN EGDAR DO Apr 28, 2019 18:05
[2019-04-28 17:44] LABS: FIBRIN DEGRADATION PRODUCTS 0.64 UG/ML (0.00-0.49); PROTHROMBIN TIME PATIENT 13.2 SEC (12.2-14.7)
[2019-04-28 17:47] LABS: BILIRUBIN,URINE NEGATIVE (NEGATIVE); CLARITY,URINE SL CLOUDY; COLOR,URINE YELLOW; GLUCOSE, URINE (UA) NEGATIVE (NEGATIVE); KETONES,URINE NEGATIVE (NEGATIVE); LEUKOCYTE ESTERASE ,URINE 1+ (NEGATIVE); NITRITE,URINE NEGATIVE (NEGATIVE); PH,URINE 5.5 (5-9); PROTEIN,URINE 1+ (NEGATIVE)
[2019-04-28 17:56] LABS: BACTERIA,URINE LARGE /HPF; RBC,URINE 0-2 /HPF
[2019-04-28] MEDS ORDERED: cefTRIAXone FOR IV USE 1,000 MG in WATER (STERILE) FOR INJECTION 10 ML IV ONE (18:00)
[2019-04-28 18:06] LABS: ALANINE AMINOTRANSFERASE 21 U/L (0-55); ALBUMIN 4.7 GM/DL (3.2-4.5); ALKALINE PHOSPHATASE 73 U/L (40-136); BILIRUBIN,TOTAL 0.5 MG/DL (0.1-1.0); BUN/CREATININE RATIO 15; CALCIUM 10.1 MG/DL (8.5-10.1); CARBON DIOXIDE 18 MMOL/L (21-32); CHLORIDE 107 MMOL/L (98-107); CREATININE SERUM 1.81 MG/DL (0.60-1.30); GFR ESTIMATED 27; GLUCOSE 153 MG/DL (70-105); POTASSIUM 5.2 MMOL/L (3.6-5.0); SODIUM 138 MMOL/L (135-145)
--- NOTE | 2019-04-28 18:13 | Diagnostic Imaging Report ---
PROCEDURE: CT head WO, R/O stroke. TECHNIQUE: Multiple contiguous axial images were obtained through the brain without the use of intravenous contrast. Auto Exposure Controls were utilized during the CT exam to meet ALARA standards for radiation dose reduction. INDICATION: Stroke. COMPARISON: June 13, 2014. FINDINGS: Mild atrophy. No intracranial hemorrhage. Focal hypodensity within the anterior aspect of the left basal ganglia is again identified and was present in 2015. A new hypodensity is noted involving the posterior aspect of the left parietal lobe measuring up to 2.7 cm. This appears new since 2014. Chronic lacunar infarction versus dilated perivascular space within the inferior left basal ganglia, stable. No midline shift, herniation, hydrocephalus, or extra-axial fluid collection. The visualized paranasal sinuses are clear. The calvarium and extracalvarial soft tissues are unremarkable. IMPRESSION: 2.7 cm hypodensity within the posterior left parietotemporal lobes, new since 2014. This is favored to relate to an age-indeterminate infarction though favored to be subacute to chronic in nature. Chronic infarction within the anterior left basal ganglia. Mild atrophy. Dictated by: Dictated on workstation # [id number]
--- NOTE | 2019-04-28 18:14 | Diagnostic Imaging Report ---
INDICATION: Confusion COMPARISON: 02/13/2018 FINDINGS: Frontal view of the chest demonstrates clear lungs bilaterally. The heart size is normal. There is no pneumothorax. Osseous structures are normal. IMPRESSION: No acute findings. Normal chest. Dictated by: Dictated on workstation # [id number]
[2019-04-28 18:32] LABS: MAGNESIUM 1.9 MG/DL (1.6-2.4)
[2019-04-28] MEDS ORDERED: NS IV 1000 ML 1,000 ML IV ONE (18:40)
[2019-04-28] MEDS ORDERED: CEFD300C3 PO (18:52)
[2019-04-28 20:16] VITALS: BP 148/72
--- NOTE | 2019-04-30 15:00 | NUR ---
Pt contacted et notified of urinary cultures. Prescription (Macrobid 100mg BID x7days) called to [facility] per ABBY Ahuja.
== END 2019-04-28 20:17 | disposition home or self-care (01) ==
LOC: EDUNIT# 17:05 → ER 17:06
DX: N39.0 Urinary tract infection, site not specified (principal); R41.0 Disorientation, unspecified; E86.0 Dehydration; E11.22 Type 2 diabetes mellitus with diabetic chronic kidney disease; I12.9 Hypertensive chronic kidney disease with stage 1 through stage 4 chronic kidney disease, or unspecified chronic kidney disease; N18.9 Chronic kidney disease, unspecified; E87.5 Hyperkalemia; E03.9 Hypothyroidism, unspecified; I25.10 Atherosclerotic heart disease of native coronary artery without angina pectoris; D64.9 Anemia, unspecified; K21.9 Gastro-esophageal reflux disease without esophagitis; Z86.73 Personal history of transient ischemic attack (TIA), and cerebral infarction without residual deficits; Z95.5 Presence of coronary angioplasty implant and graft; Z88.8 Allergy status to other drugs, medicaments and biological substances; Z79.82 Long term (current) use of aspirin; Z79.84 Long term (current) use of oral hypoglycemic drugs
CPT/HCPCS: 36415; 51701; 70450; 71045; 80053; 81000; 82150; 82962; 83605; 83690; 83735; 84443; 84484; 85025; 85379; 85610; 85730; 87040; 87077; 87088; 87186; 87804; 93005; 93041; 96361; 96374

== ENCOUNTER → 2019-05-29 | Outpatient (CLI) | payer MEDICARE ==
[~2019-05-29] MED LIST changes: +CEFD300C3 PO; -VALS1TAB74 PO; +VALS1TAB75 PO
== END ==
LOC: CARD 13:28
PROVIDERS: ATTEND Internal Medicine Cardiovascular Disease
DX: I07.1 Rheumatic tricuspid insufficiency (principal); E78.5 Hyperlipidemia, unspecified; I10 Essential (primary) hypertension; E11.9 Type 2 diabetes mellitus without complications; I25.10 Atherosclerotic heart disease of native coronary artery without angina pectoris
CPT/HCPCS: 93306

== ENCOUNTER 2019-06-02 14:36 | Emergency (ER) | payer MEDICARE ==
[~2019-06-02] VITALS: Ht 157 cm; Wt 74.0 kg
--- NOTE | 2019-06-02 15:01 | ED Lower Extremity ---
General Chief Complaint: Lower Extremity Stated Complaint: R LEG PAIN Nursing Triage Note: COMPLAINS OF PAIN BEHIND THE RIGHT KNEE STARTING YESTERDAY. TODAY STEPPED OFF THE PORCH AND LEG GAVE OUT FROM UNDER HER. DID NOT FALL. TAKEN OFF BLOOD THINNERS X2 WEEKS AGO ET STARTED A BABY ASA DAILY. Nursing Sepsis Screen: No Definite Risk Source: patient Exam Limitations: no limitations History of Present Illness Date Seen by Provider: Jun 02, 2019 Time Seen by Provider: 15:00 Initial Comments To ER with pain behind the right knee, she stepped off a porch and felt as though her knee gave out. She did not actually fall, she was taken off blood thinners per heart problems", no history of DVT. Onset: just prior to arrival Severity: moderate Pain/Injury Location: right knee Method of Injury: unknown Modifying Factors: Worse With Movement Allergies and Home Medications Allergies Coded Allergies: lisinopril (Unverified Allergy, Unknown, PT STATED SHE DOESNT REMEMBER , 11/28/14) Home Medications Amlodipine Besylate 10 Mg Tablet, 10 MG PO DAILY, (Reported) Aspirin 81 Mg Tablet.dr, 81 MG PO DAILY, (Reported) Atorvastatin Calcium 20 Mg Tablet, 20 MG PO HS, (Reported) Carvedilol 6.25 Mg Tablet, 6.25 MG PO BID, (Reported) Famotidine 20 Mg Tablet, 20 MG PO DAILY PRN for ACID REFLUX, (Reported) Ferrous Sulfate 324 Mg Tablet.dr, 324 MG PO DAILY, (Reported) Glipizide 10 Mg Tablet, 10 MG PO DAILY, (Reported) Levothyroxine Sodium 112 Mcg Tablet, 112 MCG PO DAILY, (Reported) Losartan Potassium 100 Mg Tablet, 100 MG PO DAILY, (Reported) Metformin HCl 1,000 Mg Tablet, 1,000 MG PO BID, (Reported) Ticagrelor 90 Mg Tablet, 90 MG PO BID, (Reported) Patient Home Medication List Home Medication List Reviewed: Yes Review of Systems Constitutional: see HPI EENTM: see HPI Respiratory: no symptoms reported Cardiovascular: no symptoms reported Musculoskeletal: see HPI Skin: no symptoms reported Psychiatric/Neurological: No Symptoms Reported Past Ecgrrqt-Dfvkxa-Ztrgkm Hx Patient Social History Alcohol Use: Denies Use Recreational Drug Use: No Smoking Status: Never a Smoker 2nd Hand Smoke Exposure: No Recent Foreign Travel: No Contact w/Someone Who Travel: No Recent Infectious Disease Expo: No Recent Hopitalizations: No Immunizations Up To Date Tetanus Booster (TDap): More than 5yrs PED Vaccines UTD: Yes Date of Pneumonia Vaccine: Nov 29, 2011 Date of Influenza Vaccine: Dec 27, 2018 Seasonal Allergies Seasonal Allergies: No Past Medical History Surgeries: Yes (pancreas blockage-opened it up) Coronary Stent, Gallbladder, Hysterectomy Respiratory: No Cardiac: Yes (CARDIAC ARREST WITH VTACH, STENTS) Coronary Artery Disease, Hypertension Neurological: Yes Stroke, TIA Female Reproductive Disorders: 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 Sexually Transmitted Disease: No HIV/AIDS: No Genitourinary: No Gastrointestinal: No Gastroesophageal Reflux Musculoskeletal: Yes Arthritis Endocrine: Yes Hypothyroidsim, Diabetes, Non-Insulin dep HEENT: Yes (CATARACTS REMOVED) Loss of Vision: Denies Hearing Impairment: Denies Cancer: No Psychosocial: No Integumentary: No 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) Family Medical History Family history: Arthritis Family history: Asthma Family history: Coronary thrombosis Family history: Diabetes mellitus Family history: Thyroid disorder Headache Hereditary disease No Family History of: Abdominal aortic aneurysm Desoto's disease Alcoholism Aphasia Cancer Cancer of colon Cataract Chest pain Congenital heart disease Congestive heart failure Cystic fibrosis Dementia Dysphagia Family history: Allergy Family history: Alzheimer's disease Family history: Breast disease Family history: Cardiovascular disease Family history: Gastrointestinal disease Family history: Glaucoma Family history: Hypertension Family history: Osteoporosis Hearing loss Heart disease History of - anemia History of - disorder History of - respiratory disease History of drug abuse Human immunodeficiency virus (HIV) seropositivity Hypercholesterolemia Infertile Kidney disease Malignant neoplasm of lung Myocardial infarction Parkinson's disease Prostate cancer Psychotic disorder Seizure disorder Stroke Tuberculosis Visual impairment Diabetes Physical Exam Vital Signs Vital Signs - First Documented 06/02/19 14:38 Temp 36.6 Pulse 65 Resp 16 B/P (MAP) 169/76 (107) Pulse Ox 99 O2 Delivery Room Air Capillary Refill : Less Than 3 Seconds Height, Weight, BMI Height: 5'2.00" Weight: 167lbs. 0.0oz. 75.158292cm; 30.00 BMI Method:Stated General Appearance: WD/WN, no apparent distress HEENT: PERRL/EOMI, normal ENT inspection Respiratory: no respiratory distress, no accessory muscle use Hips: bilateral hip non-tender, bilateral hip normal inspection, bilateral hip normal range of motion Legs: bilateral leg non-tender, bilateral leg normal inspection, bilateral leg normal range of motion Knees: bilateral knee non-tender, bilateral knee normal inspection, bilateral knee normal range of motion Ankles: bilateral ankle non-tender, bilateral ankle normal inspection, bilateral ankle normal range of motion Feet: bilateral foot non-tender, bilateral foot normal inspection, bilateral foot normal range of motion Neurologic/Psychiatric: alert, normal mood/affect, oriented x 3 Skin: normal color, warm/dry No swelling no erythema no pitting edema Progress/Results/Core Measures Results/Orders My Orders Orders - IBETH DAVIS APRN Knee, Right, 3 Views (06/02/19 14:57) Us Venous Lower Ext Rt (06/02/19 14:58) Vital Signs/I&O 06/02/19 14:38 Temp 36.6 Pulse 65 Resp 16 B/P (MAP) 169/76 (107) Pulse Ox 99 O2 Delivery Room Air Blood Pressure Mean: 107 Departure Impression Primary Impression: Knee pain Qualified Codes: M25.561 - Pain in right knee Disposition: 01 HOME, SELF-CARE Condition: Stable Departure-Patient Inst. Decision time for Depature: 16:18 Referrals: WILLIAM ESCAMILLA MD (PCP) Primary Care Physician Patient Instructions: Knee Pain Add. Discharge Instructions: 1. Return to ER for any concerns 2. Follow-up with her doctor next week 3. All discharge instructions reviewed with patient and/or family. Voiced understanding. IBETH DAVIS APRN Jun 02, 2019 15:01
--- NOTE | 2019-06-02 16:08 | Diagnostic Imaging Report ---
INDICATION: Right leg pain. TIME OF EXAM: 3:51 PM 3 views of the right knee were obtained. FINDINGS: Alignment is normal. Joint spaces are well-maintained. Articular surfaces are smooth. No fracture, dislocation or effusion is seen. IMPRESSION: No acute bony abnormality is detected. Dictated by: Dictated on workstation # [id number]
[2019-06-02 16:21] VITALS: BP 161/71
--- NOTE | 2019-06-02 16:48 | Diagnostic Imaging Report ---
PROCEDURE: US right lower extremity venous. TECHNIQUE: Multiple real-time grayscale images were obtained over the right lower extremity in various projections. Additional spectral analysis and color Doppler duplex images were also obtained. DATE: June 02, 2019. INDICATION: 79-year-old female, right leg pain. COMPARISON: None. FINDINGS: The right common femoral vein, right superficial femoral vein and popliteal vein are all compressible with normal flow and response to augmentation. The visualized portions of the right greater saphenous vein and deep femoral vein are patent. The right posterior tibial and peroneal veins are patent. IMPRESSION: Negative for right lower extremity deep venous thrombosis. Dictated by: Dictated on workstation # [id number]
== END 2019-06-02 16:21 | disposition home or self-care (01) ==
LOC: EDUNIT# 14:36 → ER 14:37
DX: M25.561 Pain in right knee (principal); I10 Essential (primary) hypertension; E11.9 Type 2 diabetes mellitus without complications; I25.10 Atherosclerotic heart disease of native coronary artery without angina pectoris; K21.9 Gastro-esophageal reflux disease without esophagitis; E03.9 Hypothyroidism, unspecified; Z88.8 Allergy status to other drugs, medicaments and biological substances; Z79.82 Long term (current) use of aspirin; Z79.84 Long term (current) use of oral hypoglycemic drugs; Z95.5 Presence of coronary angioplasty implant and graft; Z86.73 Personal history of transient ischemic attack (TIA), and cerebral infarction without residual deficits
CPT/HCPCS: 73562

== ENCOUNTER → 2020-06-12 | Outpatient (CLI) | payer MEDICARE ==
[~2020-06-12] VITALS: Ht 157 cm; Wt 74.0 kg
[~2020-06-12] MED LIST changes: +AMLO-251 PO; -AMLO10TA7 PO; +ASPI-1238 PO; -ASPI-983 PO; +CATHETER FLUSH 10 ML SYR IV PRN; +REGADENOSON 0.4 MG/5 ML SYR (LEXISCAN) IV ONE
[2020-06-12 12:57] VITALS: BP 165/73
--- NOTE | 2020-06-12 15:13 | Cardiology Stress Test Report ---
Stress Test Report Date of Procedure/Referring: Date of Procedure: Jun 12, 2020 PCP Paula Sanabria MD Admitting Physician Luigi Ashley MD Indications: CP Baseline Heart Rate: 74 Baseline Blood Pressure: Blood Pressure Systolic: 165 Blood Pressure Diastolic: 73 Baseline Vitals Vital Signs Date Time Temp Pulse Resp B/P (MAP) Pulse Ox O2 Delivery O2 Flow Rate FiO2 06/12/20 12:57 79 18 165/73 (103) 99 Room Air Baseline EKG: Baseline EKG: NSR Summary After explaining the procedure to the patient, she signed a consent and then brought to the stress nuclear laboratory. Patient received 0.4 mg Lexiscan for stress test, ECG, heart rate and blood pressure were monitored continuously. Resting and stress dose of radio tracer were injected, imaging was acquired and reviewed in short axis, horizontal long axis and vertical long axis views. TID: 1.04 SSS: 13 SDS: 12 EF: 77 1. Patient tolerated Lexiscan well 2. Baseline right bundle branch block persisted during test 3. Breast attenuation with reversible ischemia involving the true apex, anteroapical and inferoapical segment 4. Normal left ventricular size, EF 77 percent PAULA SANABRIA MD Jun 12, 2020 15:13
== END ==
LOC: CARD 11:12
PROVIDERS: ATTEND Internal Medicine Cardiovascular Disease
DX: R07.9 Chest pain, unspecified (principal)
CPT/HCPCS: 78452; 93017; A9502

== ENCOUNTER 2020-06-26 15:00 | Day surgery (SDC) | payer MEDICARE ==
[2020-06-26] VITALS (7 sets, daily range): BP systolic 112–145; BP diastolic 44–64
[~2020-06-26] VITALS: Ht 157.5 cm; Wt 73.0 kg
[2020-06-26] MEDS: NS IV 1000 ML 1,000 ML IV SCH ×5 (10:40→22:02)
[2020-06-26 11:04] LABS: HEMOGLOBIN 12.2 g/dL (11.5-16.0); MEAN PLATELET VOLUME 10.1 fL (9.0-12.2); WHITE BLOOD COUNT 8.7 10^3/uL (4.3-11.0)
[2020-06-26 11:23] LABS: PROTHROMBIN TIME PATIENT 13.6 SEC (12.2-14.7)
[2020-06-26 11:28] LABS: ALBUMIN 4.3 GM/DL (3.2-4.5); BILIRUBIN,TOTAL 0.4 MG/DL (0.1-1.0); CALCIUM 9.2 MG/DL (8.5-10.1); CREATININE SERUM 1.86 MG/DL (0.60-1.30); POTASSIUM 5.4 MMOL/L (3.6-5.0); TOTAL PROTEIN 7.5 GM/DL (6.4-8.2)
--- NOTE | 2020-06-26 12:09 | Diagnostic Imaging Report ---
INDICATION: SOB. COMPARISON: 04/28/2020. FINDINGS: Single frontal view of the chest demonstrates normal heart size and pulmonary vascularity. The lungs are well aerated and clear. No large pleural effusion or pneumothorax is seen. The visualized osseous structures show no acute abnormalities. IMPRESSION: 1. No acute cardiopulmonary process. Dictated by: Dictated on workstation # [id number]
--- NOTE | 2020-06-26 13:20 | Cardiac Procedure Note-CS/ASA ---
Pre-Procedure Note Pre-Op Procedure Note H&P Reviewed The H&P was reviewed, patient examined and no changes noted. Date H&P Reviewed: Jun 26, 2020 Time H&P Reviewed: 12:00 Conscious Sedation Pre-Proced Time 12:00 ASA Score 3 For ASA 3 and 4: Consider anesthesia and medical clearance. Also, for patients with a history of failed moderate sedation consider anesthesia. Airway Lungs Heart ASA score ASA 1: a normal healthy patient ASA 2: a patient with a mild systemic disease (mid diabetes, controlled hypertension, obesity x ASA 3: a patient with a severe systemic disease that limits activity (angina, COPD, prior Myocardial infarction) ASA 4: a patient with an incapacitating disease that is a constant threat to life (CHF, renal failure) ASA 5: a moribund patient not expected to survive 24 hrs. (ruptured aneurysm) ASA 6: a declared brain- patient whose organs are being harvested. For emergent operations, add the letter E after the classification Mallampati Classification Grade 3 Sedation Plan Analgesia, Amnesia, Plan communicated to team members, Discussed options with patient/fam, Discussed risks with patient/fam The patient is an appropriate candidate to undergo the planned procedure, sedation, and anesthesia. The patient immediately re-assessed prior to indication. PAULA NUNN MD Jun 26, 2020 1:20 pm
--- NOTE | 2020-06-26 13:26 | Cardiac Cath Report ---
Cardiac Cath Report Physician (s)/Public Utilities Sales Representative (s) Physician PAULA NUNN MD Pre-Procedure Diagnosis Pre-Procedure Diagnosis: Coronary artery disease Post-Procedure Note Procedure Start Date: Jun 26, 2020 Name of Procedure: Left heart catheterization PTCA to LAD Findings/Procedure Note PROCEDURE NOTE: 80 years old lady with extensive history of coronary artery disease, multiple interventions in the past. Had an abnormal stress test, has been having chest pain, scheduled for cardiac catheterization possible PTCA. After explaining the procedure to the patient, all pros and cons were explained, all questions were answered. The patient signed the consent and then she was placed on the cardiac catheterization laboratory. Groin was prepped SL fashion local anesthesia was used. Sheath placed in the right radial artery, Rogers remy ter was advanced to the left coronary system then turned to the right coronary system angiogram was done, patient was noted to have severe stenosis in the LAD. Additional 3000 units of heparin were given for a total of 6000 units of heparin, EBU 3.5 guide was advanced, I was unable to advance a BMW wire even with the support of a balloon through the LAD that was subtotally occluded with in-stent restenosis. I remove the wire and used whisper extra-support wire and I was able to advance it to the distal LAD. Then advanced 2.0 x 20 mm Treck balloon with multiple inflation up to 16 bryson proximally and 12 bryson distally, reestablish flow in the LAD. Patient was hypotensive, dopamine drip was started. At the end of the procedure the sheath was removed. Vascular band deployed FINDINGS: Hemodynamics LV 108/17, end-diastolic pressure of 17 Aorta 112/58 mean of 76 ANATOMY: Left Main has mild disease nonobstructive disease Left Anterior Descending has multiple stent extending from the proximal to distal LAD, subtotal occlusion with diffuse disease, complex intervention with balloon angioplasty to the full LAD extent using 2.5 x 20 mm balloon with excellent results Left Circumflex is moderate in size with patent stent in the proximal circumflex artery Right Coronory Artery is very small artery nondominant artery LV Gram was not done due to the renal insufficiency, pressure was measured CONCLUSION: 1. Subtotal occlusion in the LAD, patient is known to have multiple stent, complex intervention with successful balloon angioplasty to the full LAD body extending from the ostium to the distal LAD with multiple inflation with excellent results 2. Patent stent in the proximal circumflex artery nonobstructive disease 3. Small nondominant right coronary artery 4. Patient became severely hypotensive, started on dopamine drip. DISCUSSION AND RECOMMENDATION: Bolused with aspirin and Plavix, continue to maximize medical therapy at this point. Anesthesia Type: Conscious Sedation Estimated blood loss (mL): 25 ml Contrast Amount: 85 ml Total Radiation Dose: 909 mGy Post-Procedure Diagnosis Post-operative diagnosis: Chest pain Coronary artery disease Hypertension Hyperlipidemia PAULA NUNN MD Jun 26, 2020 1:26 pm
[~2020-06-26 15:00] MED LIST changes: +ACET-2267 PO; +ASCO-262 PO; +ASPIRIN 325 MG (5 GR) TABLET ONE; -CATHETER FLUSH 10 ML SYR IV PRN; +CHOL10007 PO; +CLOP75TA28 PO; +CLOPIDOGREL 300 MG (PLAVIX) TABLET PO ONE; +DOPamine DRIP 250 ML IV ONE; +GARL500C2 PO; +HEParin (CATH LAB) 1,000 ML IV ONE; +HEParin (CATH LAB) 2,000 ML IV ONE; +HEParin 1000 UNIT/ML (10ML VIAL) FOR BOLUS ONE; +HYDR25TA4 PO; +HYDROCHLOROTHIAZIDE 25 MG (HCTZ) TAB PO PRN; +LANS15CA PO; +LIDOCAINE 1% INJ 20 ML 20 ML VIAL ONE; +MIDAZOLAM 5 MG/5 ML (VERSED) VIAL ONE; +MULT-1136 PO; +NITRO DRIP 25000 MCG/D5W 250 ML IV ONE; +NS IV 1000 ML 1,000 ML ONE; +OMEG-177 PO; -REGADENOSON 0.4 MG/5 ML SYR (LEXISCAN) IV ONE; +SITA25TA5 PO; +SITAGLIPTIN PHOSPHATE 25 MG PO SCH; +VERAPAMIL 5 MG/2 ML (CALAN) VIAL IV ONE; +fentaNYL INJ 100 MCG/2 ML AMP ONE
[2020-06-26] MEDS ORDERED: CATHETER FLUSH 10 ML SYR IV PRN (16:30)
[2020-06-26] MEDS ORDERED: LINAGLIPTIN (TRADJENTA) 5 MG TABLET PO SCH (17:00)
[2020-06-26] MEDS: OMEGA 3 (FISH OIL) 1000 MG CAP PO SCH (20:29)
[2020-06-26] MEDS: CARVEDILOL 6.25 MG (COREG) TAB PO SCH (20:29)
[2020-06-27] MEDS: NS IV 1000 ML 1,000 ML IV SCH (01:05)
[2020-06-27 02:40] LABS: BASOPHILS % (AUTO) 0 % (0-10); EOSINOPHILS # (AUTO) 0.1 10^3/uL (0.0-0.3); EOSINOPHILS % (AUTO) 2 % (0-10); HEMATOCRIT 30 % (35-52); HEMOGLOBIN 9.6 g/dL (11.5-16.0); LYMPHOCYTES # (AUTO) 1.2 10^3/uL (1.0-4.0); LYMPHOCYTES % (AUTO) 17 % (12-44); MEAN CORPUSCULAR HEMOGLOBIN 31 pg (25-34); MEAN CORPUSCULAR HGB CONC 32 g/dL (32-36); MEAN CORPUSCULAR VOLUME 97 fL (80-99); MEAN PLATELET VOLUME 10.1 fL (9.0-12.2); MONOCYTES # (AUTO) 0.5 10^3/uL (0.0-1.0); MONOCYTES % (AUTO) 7 % (0-12); NEUTROPHILS # (AUTO) 5.1 10^3/uL (1.8-7.8); NEUTROPHILS % (AUTO) 74 % (42-75); PLATELET COUNT 188 10^3/uL (130-400); WHITE BLOOD COUNT 6.9 10^3/uL (4.3-11.0)
[2020-06-27 03:04] LABS: BILIRUBIN,TOTAL 0.3 MG/DL (0.1-1.0); CALCIUM 7.1 MG/DL (8.5-10.1); CREATININE SERUM 1.46 MG/DL (0.60-1.30); MAGNESIUM 1.6 MG/DL (1.6-2.4)
[2020-06-27] MEDS: MAGNESIUM 1 GM/100 ML IVPB 100 ML IV SCH ×2 (03:31→04:27)
[2020-06-27] MEDS ORDERED: KCL 20 MEQ TAB (K-DUR) PO SCH (06:00)
[2020-06-27] MEDS ORDERED: POTASSIUM CL 10MEQ/50ML IVPB 50 ML IV SCH (06:00)
[2020-06-27] MEDS ORDERED: MAGNESIUM 1 GM/100 ML IVPB 100 ML IV SCH (06:00)
--- NOTE | 2020-06-27 06:10 | Discharge Inst-Post CATH ---
Discharge Inst-CATH/EP Problems Reviewed?: Yes Post Cardiac Cath/EP D/C Inst Follow Up/Plan Appointment with Dr Sanabria in 2-4 weeks <b>CARDIAC CATH/EP PROCEDURE DISCHARGE INSTRUCTIONS</b> ACTIVITY * Go Home directly and rest. * Limit activity of the leg (or wrist if it was used) for 7 days including aerobics, swimming, jogging, bicycling, etc. * Restrict stair-climbing for 7 days if possible, if not, climb up with your non-cath leg, then bring together on the same step. * Avoid lifting, pushing, pulling or excessive movement of the affected extremity for 7 days. * Customary sexual activity may be resumed after 2 days-use caution not to use a position that strains or causes pain to the affected extremity. * No driving for 24 hours. * NO SMOKING. * Avoid straining for bowel movements for 7 days. * Gentle walking on level ground is allowed. * Returning to work will depend on the type of procedure and the results. Your doctor will discuss this with you. CALL YOUR DOCTOR FOR ANY OF THE FOLLOWING: *If bleeding from the puncture site occurs- Apply gentle pressure to site with clean cloth and call your doctor or EMS. * If a knot or lump forms under the skin, increases in size, or causes pain. * If bruising appears to be worsening or moving further down your leg instead of disappearing. * Temperature above 101 F. CARE OF YOUR GROIN INCISION; * Bruising or purple discoloration of the skin near the puncture site is common. * You may shower only, no bathtub bathing for 5 days. Be careful to avoid slipping as your leg may feel stiff. * If a closure device was used on your femoral artery, please see the attached guide regarding care of the device and your leg. * Leave dressing on FOR 24 hours. CARE OF YOUR WRIST INCISION; * Bruising or purple discoloration of the skin near the puncture site is common. * You may shower. * DO NOT submerge wrist. * Leave dressing on FOR 24 hours. PAULA SANABRIA MD Jun 27, 2020 06:10
[2020-06-27] MEDS ORDERED: LEVOTHYROXINE 125 MCG (LEVOTHROID) TABLET PO SCH (06:30)
[2020-06-27] MEDS ORDERED: glipiZIDE 5 MG (GLUCOTROL) TAB PO SCH (06:30)
--- NOTE | 2020-06-27 07:31 | Diagnostic Imaging Report ---
INDICATION: Heart disease. Comparison made with prior examination from 06/26/2020. FINDINGS: Single view examination of the chest fails to reveal evidence of active parenchymal pathology or pleural effusion. The cardiac silhouette is normal. IMPRESSION: Negative chest. Dictated by: Dictated on workstation # [id number]
[2020-06-27] MEDS ORDERED: amLODIPine 10 MG (NORVASC) TAB PO SCH (09:00)
[2020-06-27] MEDS ORDERED: LOSARTAN 100 MG (COZAAR) TABLET PO SCH (09:00)
[2020-06-27] MEDS ORDERED: NON-FORMULARY MEDICATION 1 EA EA (Glipizide 10 MG) PO SCH (09:00)
[2020-06-27] MEDS ORDERED: ASPIRIN E.C. 81 MG (ECOTRIN) TAB PO SCH (09:00)
[2020-06-27] MEDS ORDERED: CLOPIDOGREL 75 MG (PLAVIX) TABLET PO SCH (09:00)
[2020-06-27] MEDS: CARVEDILOL 6.25 MG (COREG) TAB PO SCH (09:02)
[2020-06-27] MEDS: OMEGA 3 (FISH OIL) 1000 MG CAP PO SCH (09:02)
--- NOTE | 2020-06-27 09:03 | Cardiology Progress Note ---
Subjective Date Seen by Provider: Jun 27, 2020 Time Seen by Provider: 09:02 Subjective/Events-last exam Patient is lying down in bed, feeling well. No new complaint. No chest pain. Review of Systems General: No Chills, No Night Sweats, No Fatigue, No Malaise, No Appetite, No Other HEENT: No Head Aches, No Visual Changes, No Eye Pain, No Ear Pain, No Dysphasia, No Sinus Congestion, No Post Nasal Drip, No Sore Throat, No Other Pulmonary: No Dyspnea, No Cough, No Pleuritic Chest Pain, No Other Cardiovascular: No: Chest Pain, Palpitations, Orthopnea, Paroxysmal Noc. Dyspnea, Edema, Lt Headedness, Other Objective-Cardiology Exam Last Set of Vital Signs Vital Signs 06/26/20 06/27/20 06/27/20 18:00 03:36 06:00 Temp 37.0 Pulse 67 Resp 13 B/P (MAP) 128/58 (81) Pulse Ox 94 O2 Delivery Room Air O2 Flow Rate 2.00 Capillary Refill : Less Than 3 Seconds I&O Intake and Output 06/27/20 00:00 Intake Total 625 ml Output Total 250 ml Balance 375 ml Intake Oral 125 ml IV Total 500 ml Output Urine Total 250 ml General: Alert, Oriented X3, Cooperative HEENT: Atraumatic, PERRLA Neck: Supple, No JVD, No Thyromegaly Lungs: Clear to Auscultation, Normal Air Movement Heart: Regular Rate, Normal S1, Normal S2, No Murmurs Abdomen: Normal Bowel Sounds, Soft, No Tenderness, No Hepatosplenomegaly, No Masses Extremities: No Clubbing, No Cyanosis, No Edema, Normal Pulses, No Tenderness/Swelling Skin: No Rashes, No Breakdown, No Significant Lesion Neuro: Normal Gait, Normal Speech, Strength at 5/5 X4 Ext, Normal Tone, Sensation Intact Psych/Mental Status: Mental Status NL, Mood NL Results Lab Laboratory Tests 06/26/20 10:54 06/27/20 01:53 A/P-Cardiology Admission Diagnosis Coronary artery disease Hypertension Hyperlipidemia Diabetes mellitus Assessment/Plan Coronary artery disease, multiple interventions in the past, complex interventio n with multiple balloon angioplasty for total occlusion of the LAD with severe in-stent restenosis, excellent results, continue on aspirin and Plavix Hypertension, continue on current medication monitor Hyperlipidemia, monitor lipids Diabetes mellitus, followed and managed by primary care physician I had a long discussion with the patient about compliance with medication maximizing medical therapy. Arrange for follow-up as an outpatient PAULA NUNN MD Jun 27, 2020 09:03
[2020-06-27 11:00] VITALS: BP 144/82
== END 2020-06-27 11:11 | disposition home or self-care (01) ==
LOC: ICU 15:01 → CATH 06-27 11:11
PROVIDERS: ATTEND Internal Medicine Cardiovascular Disease
DX: I25.10 Atherosclerotic heart disease of native coronary artery without angina pectoris (principal); I10 Essential (primary) hypertension; E03.9 Hypothyroidism, unspecified; E11.9 Type 2 diabetes mellitus without complications; E78.2 Mixed hyperlipidemia; I08.1 Rheumatic disorders of both mitral and tricuspid valves; I65.29 Occlusion and stenosis of unspecified carotid artery; E66.9 Obesity, unspecified; Z68.29 Body mass index [BMI] 29.0-29.9, adult; Z79.82 Long term (current) use of aspirin; Z79.899 Other long term (current) drug therapy; Z88.8 Allergy status to other drugs, medicaments and biological substances; Z87.891 Personal history of nicotine dependence
CPT/HCPCS: 71045 ×2; 80053 ×2; 80061; 83735; 84100; 85025; 85027; 85347; 85610; 85730; 87081; 92920; 93005; 93458; C1725; C1769 ×2; C1887; C1894; 36415

== ENCOUNTER 2021-07-14 16:19 | Emergency (ER) | payer MEDICARE ==
[~2021-07-14] VITALS: Ht 157.5 cm; Wt 74.8 kg
[~2021-07-14 16:19] MED LIST changes: -ASPIRIN 325 MG (5 GR) TABLET ONE; -CLOPIDOGREL 300 MG (PLAVIX) TABLET PO ONE; -DOPamine DRIP 250 ML IV ONE; -HEParin (CATH LAB) 1,000 ML IV ONE; -HEParin (CATH LAB) 2,000 ML IV ONE; -HEParin 1000 UNIT/ML (10ML VIAL) FOR BOLUS ONE; -HYDROCHLOROTHIAZIDE 25 MG (HCTZ) TAB PO PRN; -LIDOCAINE 1% INJ 20 ML 20 ML VIAL ONE; -MIDAZOLAM 5 MG/5 ML (VERSED) VIAL ONE; -NITRO DRIP 25000 MCG/D5W 250 ML IV ONE; -NS IV 1000 ML 1,000 ML ONE; -SITAGLIPTIN PHOSPHATE 25 MG PO SCH; -VERAPAMIL 5 MG/2 ML (CALAN) VIAL IV ONE; -fentaNYL INJ 100 MCG/2 ML AMP ONE
[2021-07-14 16:23] VITALS: BP 162/76
[2021-07-14] MEDS ORDERED: morphine INJ 10 MG/ML 1ML (SYR OR VIAL) IVP STA (16:25)
[2021-07-14] MEDS ORDERED: ANTACID SUSP 30 ML UDC (MYLANTA) PO ONE (16:30)
[2021-07-14] MEDS ORDERED: LIDOCAINE 2% VISCOUS 15 ML UDC PO ONE (16:30)
--- NOTE | 2021-07-14 16:33 | ED Chest Pain ---
General Stated Complaint: CP Source: patient, EMS Exam Limitations: no limitations History of Present Illness Date Seen by Provider: Jul 14, 2021 Time Seen by Provider: 16:26 Initial Comments To ER by EMS from home with reports of chest pain that began shortly after 3 PM today. The pain is rated at 8 out of 10 and described as someone sitting on her chest. EMS arrived and gave 324 mg of aspirin as well as 3 nitroglycerin sublingual and 25 mcg of fentanyl in route to the hospital. Despite this her pain remains 8 out of 10. She denies any nausea or shortness of breath or other symptoms. She has a history of cardiac catheterization June 26, 2020 showing subtotal occlusion of LAD with multiple stenting and complex intervention. PMH of hypothyroidism, type II DM, HLD, tricuspid regurgitation, hypertension, coronary artery disease, mitral regurgitation, pulmonary hypertension. She is on daily aspirin and Plavix. Timing/Duration: constant Severity/Quality: pressure Location: central Radiation: no radiation Prior CP/Workup: angina, cardiac cath ASA po SPA COORDINATOR: Yes NTG SL SPA COORDINATOR: Yes Allergies and Home Medications Allergies Coded Allergies: lisinopril (Unverified Allergy, Unknown, PT STATED SHE DOESNT REMEMBER , 11/28/14) Patient Home Medication List Home Medication List Reviewed: Yes Acetaminophen (Tylenol Extra Strength) 500 Mg Tablet, 500-1,000 MG PO Q6H PRN fo r PAIN-MILD (1-4), (Reported) Entered as Reported by: JADE JACKSON on 06/26/20 1131 Amlodipine Besylate (Amlodipine Besylate) 10 Mg Tablet, 10 MG PO DAILY, (Reported) Entered as Reported by: KENNY BARRIOS on 11/28/14 1247 Ascorbate Calcium (Vitamin C) 500 Mg Tablet, 500 MG PO DAILY, (Reported) Entered as Reported by: JADE JACKSON on 06/26/20 1131 Aspirin (Aspirin EC) 81 Mg Tablet.dr, 81 MG PO DAILY, (Reported) Entered as Reported by: KENNY BARRIOS on 11/28/14 1247 Atorvastatin Calcium (Atorvastatin Calcium) 20 Mg Tablet, 20 MG PO DAILY, (Reported) Entered as Reported by: KENNY BARRIOS on 11/28/14 1247 Carvedilol (Carvedilol) 6.25 Mg Tablet, 6.25 MG PO BID, (Reported) Entered as Reported by: NORMA PIERSON on 07/20/18 1551 Cholecalciferol (Vitamin D3) (Vitamin D3) 25 Mcg Capsule, 25 MCG PO DAILY, (Reported) Entered as Reported by: JADE JACKSON on 06/26/20 113 Clopidogrel Bisulfate (Clopidogrel) 75 Mg Tablet, 75 MG PO DAILY, (Reported) Entered as Reported by: JADE JACKSON on 06/26/20 113 Garlic (Garlic) 500 Mg Capsule, 500 MG PO DAILY, (Reported) Entered as Reported by: JADE JACKSON on 06/26/20 113 Glipizide (Glipizide) 10 Mg Tablet, 10 MG PO DAILY, (Reported) Entered as Reported by: KENNY BARRIOS on 11/28/14 1247 Hydrochlorothiazide (Hydrochlorothiazide) 25 Mg Tablet, 25 MG PO DAILY PRN for FLUID RETENTION, (Reported) Entered as Reported by: JADE JACKSON on 06/26/20 113 Lansoprazole (Prevacid 24Hr) 15 Mg Capsule.dr, 15 MG PO DAILY, (Reported) Entered as Reported by: JADE JACKSON on 06/26/20 113 Levothyroxine Sodium (Levothyroxine Sodium) 125 Mcg Tablet, 125 MCG PO DAILY, (Reported) Entered as Reported by: JADE JACKSON on 06/26/20 113 Losartan Potassium (Losartan Potassium) 100 Mg Tablet, 100 MG PO DAILY, (Reported) Entered as Reported by: NORMA PIERSON on 07/20/18 1551 Multivitamin (Multivitamin) 1 Each Tablet, 1 EACH PO DAILY, (Reported) Entered as Reported by: JADE JACKSON on 06/26/20 113 [place]-3S/Dha/Epa/Fish Oil (Fish Oil 1,000 mg Softgel) 1 Each Capsule, 1 EACH PO BID, (Reported) Entered as Reported by: JADE JACKSON on 06/26/20 113 Sitagliptin Phosphate (Januvia) 25 Mg Tablet, 25 MG PO 1500, (Reported) Entered as Reported by: JADE JACKSON on 06/26/20 113 Review of Systems Review of Systems Constitutional: see HPI EENTM: No Symptoms Reported Respiratory: No Symptoms Reported Cardiovascular: See HPI, Chest Pain Gastrointestinal: No Symptoms Reported Genitourinary: No Symptoms Reported Musculoskeletal: no symptoms reported Skin: no symptoms reported Psychiatric/Neurological: No Symptoms Reported Endocrine: No Symptoms Reported Hematologic/Lymphatic: No Symptoms Reported Past Pxeksiq-Bfdjhn-Ytzlfj Hx Immunizations Up To Date Tetanus Booster (TDap): More than 5yrs PED Vaccines UTD: Yes Seasonal Allergies Seasonal Allergies: No Past Medical History Surgeries: Yes (pancreas blockage-opened it up) Coronary Stent, Gallbladder, Hysterectomy Respiratory: No Cardiac: Yes (CARDIAC ARREST WITH VTACH, STENTS) Coronary Artery Disease, High Cholesterol, Hypertension Neurological: Yes Stroke, TIA Female Reproductive Disorders: 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 Sexually Transmitted Disease: No HIV/AIDS: No Genitourinary: No Gastrointestinal: Yes Gastroesophageal Reflux Musculoskeletal: Yes Arthritis Endocrine: Yes Hypothyroidsim, Diabetes, Non-Insulin dep HEENT: Yes (CATARACTS REMOVED) Loss of Vision: Denies Hearing Impairment: Denies Cancer: No Psychosocial: No Integumentary: No 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) Family Medical History Family history: Arthritis Family history: Asthma Family history: Coronary thrombosis Family history: Diabetes mellitus Family history: Thyroid disorder Headache Hereditary disease No Family History of: Abdominal aortic aneurysm Chaitanya's disease Alcoholism Aphasia Cancer Cancer of colon Cataract Chest pain Congenital heart disease Congestive heart failure Cystic fibrosis Dementia Dysphagia Family history: Allergy Family history: Alzheimer's disease Family history: Breast disease Family history: Cardiovascular disease Family history: Gastrointestinal disease Family history: Glaucoma Family history: Hypertension Family history: Osteoporosis Hearing loss Heart disease History of - anemia History of - disorder History of - respiratory disease History of drug abuse Human immunodeficiency virus (HIV) seropositivity Hypercholesterolemia Infertile Kidney disease Malignant neoplasm of lung Myocardial infarction Parkinson's disease Prostate cancer Psychotic disorder Seizure disorder Stroke Tuberculosis Visual impairment Diabetes Physical Exam Vital Signs Vital Signs - First Documented 07/14/21 16:23 Temp 36.1 Pulse 91 Resp 16 B/P (MAP) 162/76 (104) O2 Delivery Room Air Capillary Refill : Height, Weight, BMI Height: 5'2.00" Weight: 167lbs. 0.0oz. 75.177363si; 29.42 BMI Method:Stated General Appearance: No Apparent Distress, WD/WN, Other (Alert and oriented GCS 15 hemodynamically stable. Her heart rate is 90, her blood pressure is 151/65. Oxygen saturation 97% on room air. EKG shows sinus rhythm right bundle branch block no ST segment change. ) HEENT: PERRL/EOMI, TMs Normal Respiratory: No Accessory Muscle Use, No Respiratory Distress Cardiovascular: Regular Rate, Rhythm, Normal Peripheral Pulses Gastrointestinal: Normal Bowel Sounds, Non Tender, Soft Extremity: Normal Capillary Refill, Normal Inspection Neurologic/Psychiatric: Alert, Oriented x3 Skin: Normal Color, Warm/Dry Progress/Results/Core Measures Results/Orders Lab Results Laboratory Tests Test 07/14/21 16:28 Range/Units White Blood Count 9.6 4.3-11.0 10^3/uL Red Blood Count 3.78 L 3.80-5.11 10^6/uL Hemoglobin 11.4 L 11.5-16.0 g/dL Hematocrit 35 35-52 % Mean Corpuscular Volume 92 80-99 fL Mean Corpuscular Hemoglobin 30 25-34 pg Mean Corpuscular Hemoglobin Concent 33 32-36 g/dL Red Cell Distribution Width 12.2 10.0-14.5 % Platelet Count 258 130-400 10^3/uL Mean Platelet Volume 10.0 9.0-12.2 fL Immature Granulocyte % (Auto) 1 % Neutrophils (%) (Auto) 75 42-75 % Lymphocytes (%) (Auto) 15 12-44 % Monocytes (%) (Auto) 7 0-12 % Eosinophils (%) (Auto) 3 0-10 % Basophils (%) (Auto) 0 0-10 % Neutrophils # (Auto) 7.2 1.8-7.8 10^3/uL Lymphocytes # (Auto) 1.5 1.0-4.0 10^3/uL Monocytes # (Auto) 0.7 0.0-1.0 10^3/uL Eosinophils # (Auto) 0.3 0.0-0.3 10^3/uL Basophils # (Auto) 0.0 0.0-0.1 10^3/uL Immature Granulocyte # (Auto) 0.1 0.0-0.1 10^3/uL Prothrombin Time 13.6 12.2-14.7 SEC INR Comment 1.0 0.8-1.4 Activated Partial Thromboplast Time 26 24-35 SEC Sodium Level 135 135-145 MMOL/L Potassium Level 4.5 3.6-5.0 MMOL/L Chloride Level 105 98-107 MMOL/L Carbon Dioxide Level 18 L 21-32 MMOL/L Anion Gap 12 5-14 MMOL/L Blood Urea Nitrogen 35 H 7-18 MG/DL Creatinine 1.60 H 0.60-1.30 MG/DL Estimat Glomerular Filtration Rate 32 BUN/Creatinine Ratio 22 Glucose Level 232 H 70-105 MG/DL Calcium Level 9.3 8.5-10.1 MG/DL Corrected Calcium 9.2 8.5-10.1 MG/DL Magnesium Level 1.5 L 1.6-2.4 MG/DL Total Bilirubin 0.4 0.1-1.0 MG/DL Aspartate Amino Transf (AST/SGOT) 16 5-34 U/L Alanine Aminotransferase (ALT/SGPT) 17 0-55 U/L Alkaline Phosphatase 107 40-136 U/L Myoglobin 65.7 10.0-92.0 NG/ML Troponin I < 0.028 <0.028 NG/ML B-Type Natriuretic Peptide 214.1 H <100.0 PG/ML Total Protein 6.9 6.4-8.2 GM/DL Albumin 4.1 3.2-4.5 GM/DL My Orders Orders - IBETH DAVIS APRN Antacid Suspension (Mylanta Suspension (07/14/21 16:30) Lidocaine 2% Viscous 15 Ml (Xylocaine Vi (07/14/21 16:30) Morphine Injection (Morphine Injection (07/14/21 16:25) Cbc With Automated Diff (07/14/21 16:25) Magnesium (07/14/21 16:25) Chest 1 View, Ap/Pa Only (07/14/21 16:25) Ekg Tracing (07/14/21 16:25) Comprehensive Metabolic Panel (07/14/21 16:25) Myoglobin Serum (07/14/21 16:25) Protime With Inr (07/14/21 16:25) Partial Thromboplastin Time (07/14/21 16:25) O2 (07/14/21 16:25) Monitor-Rhythm Ecg Trace Only (07/14/21 16:) Lipid Panel (07/15/21 06:00) Ed Iv/Invasive Line Start (07/14/21 16:25) Bnp Nel (07/14/21 16:25) Troponin I [place] (07/14/21 16:25) Troponin I Nel (07/14/21 18:30) Medications Given in ED Current Medications Medications Dose Ordered Sig/Eder Route Start Time Stop Time Status Last Admin Dose Admin Al Hydrox/Mg Hydrox/Simethicone 30 ml ONCE ONCE PO 07/14/21 16:30 07/14/21 16:31 DC 07/14/21 16:34 30 ML Lidocaine HCl 15 ml ONCE ONCE PO 07/14/21 16:30 07/14/21 16:31 DC 07/14/21 16:34 15 ML Vital Signs/I&O 07/14/21 16:23 Temp 36.1 Pulse 91 Resp 16 B/P (MAP) 162/76 (104) O2 Delivery Room Air Departure Communication (Admissions) Family Conversation 170-patient is sitting up in bed alert and oriented talking with family (son and daughter). She states that after the GI cocktail and 4 mg of morphine her pain is "quite a bit more dull but I would still say about an 8 out of 10". 172-discussed the negative troponin with them. Discussed with her that she would have a repeat troponin at 1830 and if still negative and if her pain is gone she could go home for outpatient follow-up. She states that her pain is gone at the moment. She is agreeable with this plan. 1906-still pain-free. Repeat troponin negative. Will discharge to home. Suspect esophageal spasm. NAME: BEBETO HOOK MED REC#: [id number] PT STATUS: REG ER : 1940 PHYSICIAN: IBETH DAVIS APRN ADMIT DATE: 07/14/21/ER Draft Date of Exam:07/14/21 CHEST 1 VIEW, AP/PA ONLY INDICATION: Chest pain. COMPARISON: 06/27/2020. FINDINGS: Single frontal view of the chest demonstrates normal heart size and pulmonary vascularity. The lungs are well aerated and clear. No large pleural effusion or pneumothorax is seen. The visualized osseous structures show no acute abnormalities. IMPRESSION: 1. No acute cardiopulmonary process. Dictated on workstation # [id number] Dict: 07/14/[id number] Trans: [id number] Interpreted by: IKER ASHFORD MD Electronically signed by: Impression Primary Impression: Chest pain Disposition: HOME, SELF-CARE Condition: Stable Departure-Patient Inst. Decision time for Depature: 19:06 Referrals: UNKNOWN (PCP/Family) Primary Care Physician Patient Instructions: Chest Pain Add. Discharge Instructions: 1. Return to ER for any recurrent pain. Follow-up with Dr. MUSA later this week. Continue current medications. IBETH DAVIS METHODS ENGINEER Jul 14, 2021 16:33
[2021-07-14 16:36] LABS: BASOPHILS % (AUTO) 0 % (0-10); EOSINOPHILS # (AUTO) 0.3 10^3/uL (0.0-0.3); EOSINOPHILS % (AUTO) 3 % (0-10); HEMATOCRIT 35 % (35-52); HEMOGLOBIN 11.4 g/dL (11.5-16.0); LYMPHOCYTES # (AUTO) 1.5 10^3/uL (1.0-4.0); LYMPHOCYTES % (AUTO) 15 % (12-44); MEAN CORPUSCULAR HEMOGLOBIN 30 pg (25-34); MEAN CORPUSCULAR HGB CONC 33 g/dL (32-36); MEAN CORPUSCULAR VOLUME 92 fL (80-99); MONOCYTES # (AUTO) 0.7 10^3/uL (0.0-1.0); MONOCYTES % (AUTO) 7 % (0-12); NEUTROPHILS # (AUTO) 7.2 10^3/uL (1.8-7.8); NEUTROPHILS % (AUTO) 75 % (42-75); PLATELET COUNT 258 10^3/uL (130-400); WHITE BLOOD COUNT 9.6 10^3/uL (4.3-11.0)
[2021-07-14 16:53] LABS: ALBUMIN 4.1 GM/DL (3.2-4.5)
[2021-07-14 16:54] LABS: POTASSIUM 4.5 MMOL/L (3.6-5.0); PROTHROMBIN TIME PATIENT 13.6 SEC (12.2-14.7)
[2021-07-14 16:55] LABS: CALCIUM 9.3 MG/DL (8.5-10.1)
[2021-07-14 16:56] LABS: TOTAL PROTEIN 6.9 GM/DL (6.4-8.2)
--- NOTE | 2021-07-14 16:57 | Diagnostic Imaging Report ---
INDICATION: Chest pain. COMPARISON: 06/27/2020. FINDINGS: Single frontal view of the chest demonstrates normal heart size and pulmonary vascularity. The lungs are well aerated and clear. No large pleural effusion or pneumothorax is seen. The visualized osseous structures show no acute abnormalities. IMPRESSION: 1. No acute cardiopulmonary process. Dictated by: Dictated on workstation # [id number]
[2021-07-14 16:58] LABS: BILIRUBIN,TOTAL 0.4 MG/DL (0.1-1.0)
[2021-07-14 17:00] LABS: CREATININE SERUM 1.6 MG/DL (0.60-1.30)
[2021-07-14 17:02] LABS: MAGNESIUM 1.5 MG/DL (1.6-2.4)
== END 2021-07-14 19:38 | disposition home or self-care (01) ==
LOC: EDUNIT# 16:19 → ER 16:23 → 4TH 17:28 → UNDOADMIN 17:28 → ER 19:38
DX: R07.9 Chest pain, unspecified (principal); E11.9 Type 2 diabetes mellitus without complications; Z79.01 Long term (current) use of anticoagulants; Z79.82 Long term (current) use of aspirin
CPT/HCPCS: 36415; 71045; 80053; 83735; 83874; 83880; 84484; 85025; 85610; 85730; 93005; 93041

== ENCOUNTER → 2021-07-30 | Outpatient (CLI) | payer MEDICARE ==
[~2021-07-30] MED LIST changes: +REGADENOSON 0.4 MG/5 ML SYR (LEXISCAN) IV ONE
[2021-07-30] MEDS: CATHETER FLUSH 10 ML SYR IVP PRN ×2 (11:47→11:49)
[2021-07-30 13:23] VITALS: BP 183/70
--- NOTE | 2021-07-30 15:27 | Cardiology Stress Test Report ---
Stress Test Report Date of Procedure/Referring: Date of Procedure: July 30, 2021 PCP Paula Sanabria MD Admitting Physician Bessie Garrett MD Indications: HTN Baseline Heart Rate: 65 Baseline Blood Pressure: Blood Pressure Systolic: 183 Blood Pressure Diastolic: 70 Baseline Vitals Vital Signs Date Time Temp Pulse Resp B/P (MAP) Pulse Ox O2 Delivery O2 Flow Rate FiO2 07/30/21 13:23 65 183/70 (107) Baseline EKG: Baseline EKG: NSR Summary After explaining the procedure to the patient, she signed a consent and then brought to the stress nuclear laboratory. Patient received 0.4 mg Lexiscan for stress test, ECG, heart rate and blood pressure were monitored continuously. Resting and stress dose of radio tracer were injected, imaging was acquired and reviewed in short axis, horizontal long axis and vertical long axis views. TID: 1.02 SSS: 5 SDS: 5 EF: 67 1. Patient tolerated Lexiscan well 2. Baseline hypertension persisted during test 3. Extracardiac attenuation affecting the quality of the images, there is no significant ischemia or infarction on SPECT images 4. Normal left ventricular size, EF 67% PAULA SANABRIA MD July 30, 2021 15:27
== END ==
LOC: CARD 11:00
PROVIDERS: ATTEND Internal Medicine Cardiovascular Disease
DX: I34.0 Nonrheumatic mitral (valve) insufficiency (principal); I10 Essential (primary) hypertension; I25.10 Atherosclerotic heart disease of native coronary artery without angina pectoris
CPT/HCPCS: 78452; 93017; 93306; A9502

== ENCOUNTER → 2021-11-19 | Outpatient (CLI) | payer MEDICARE ==
[~2021-11-19] MED LIST changes: -REGADENOSON 0.4 MG/5 ML SYR (LEXISCAN) IV ONE
--- NOTE | 2021-11-19 17:13 | Diagnostic Imaging Report ---
US RENAL ART DOPPLER CARY COMP Technique: Multi-projectional grayscale, color Doppler and spectral duplex imaging of the bilateral kidneys and renal vasculature was performed. Indication: Chronic kidney disease, stage III. Hypertension Comparison: Renal ultrasound from 05/27/2017 FINDINGS: Right side: Right kidney is normal in size measuring 10 cm. There is mild dilation of the renal pelvis and is unchanged since prior exam. The following measurements were made for the right renal vasculature and/or as follows: Main renal artery: Main renal artery is patent with normal low resistant arterial waveforms. Maximal peak systolic velocities in the distal aspect measuring 190 cm/s. Interlobular/arcuate arteries: Arcuate and interlobular arteries are patent with normal low resistant waveforms. PSV:Aorta : 1.8 Left side: Severely atrophic left kidney with no appreciable normal renal parenchyma remaining. The left main renal artery is hypoplastic as well. IMPRESSION: 1. Chronic severe atrophy of the left kidney is unchanged since CT of 10/15/2016. 2. No renal artery stenosis on the right. Abnormal Parameters: PSV > 200 cm/s PSV:Aorta > 3.5 Acceleration Index < 300 cm/sec2 Acceleration time > 70 msec Dictated by: Dictated on workstation # [id number]
== END ==
LOC: RAD 11:14
PROVIDERS: ATTEND Internal Medicine Nephrology
DX: N26.1 Atrophy of kidney (terminal) (principal); I12.9 Hypertensive chronic kidney disease with stage 1 through stage 4 chronic kidney disease, or unspecified chronic kidney disease; E11.22 Type 2 diabetes mellitus with diabetic chronic kidney disease; N18.32 Chronic kidney disease, stage 3b; E83.9 Disorder of mineral metabolism, unspecified
CPT/HCPCS: 76770; 93975

== ENCOUNTER 2022-05-26 19:00 | Observation (INO) | payer MEDICARE ==
[~2022-05-26] VITALS: Ht 157.4 cm; Wt 74.6 kg
--- NOTE | 2022-05-26 19:11 | ED Chest Pain ---
General Stated Complaint: CHEST PAINS Source: patient Exam Limitations: no limitations History of Present Illness Date Seen by Provider: May 26, 2022 Time Seen by Provider: 19:00 Initial Comments 82-year-old female presents to the emergency department today for chest pain. She states she had an initial episode of chest pain described as a pressure, mid central for about 1 hour this morning. She later went to [facility] and then had an episode of extreme fatigue and had to go home and rest in the mid afternoon around noon. This evening at about 6 PM she had a recurrence of her midsternal chest pressure that has been present since that time. No aggravating or alleviating factors. No associated symptoms. She does have a history of c oronary artery disease status post [address] Sanabria. All other systems reviewed and negative except documented per HPI. Voice recognition software was used to help create this chart Allergies and Home Medications Allergies Coded Allergies: lisinopril (Unverified Allergy, Unknown, PT STATED SHE DOESNT REMEMBER , 11/28/14) Patient Home Medication List Home Medication List Reviewed: Yes Amlodipine Besylate (Amlodipine Besylate) 10 Mg Tablet, 10 MG PO DAILY, (Reported) Entered as Reported by: KENNY BARRIOS on 11/28/14 1247 Last Action: Reviewed Apixaban (Eliquis) 2.5 Mg Tablet, 2.5 MG PO BID Prescribed by: PAULA SANABRIA on 05/27/22 143 Atorvastatin Calcium (Atorvastatin Calcium) 40 Mg Tablet, 40 MG PO DAILY, (Reported) Entered as Reported by: JADE JACKSON on 05/27/22 1140 Last Action: Reviewed Carvedilol (Carvedilol) 12.5 Mg Tablet, 12.5 MG PO BID, (Reported) Entered as Reported by: JADE JACKSON on 05/27/22 1140 Last Action: Reviewed Clopidogrel Bisulfate (Clopidogrel) 75 Mg Tablet, 75 MG PO DAILY, (Reported) Entered as Reported by: JADE JACKSON on 06/26/20 1131 Last Action: Reviewed Dronedarone HCl (Multaq) 400 Mg Tablet, 400 MG PO BID Prescribed by: PAULA SANABRIA on 05/27/22 1431 Garlic (Garlic) 500 Mg Capsule, 500 MG PO 1800, (Reported) Entered as Reported by: JADE JACKSON on 06/26/201130 Last Action: Reviewed Glipizide (Glipizide) 10 Mg Tablet, 10 MG PO DAILY, (Reported) Entered as Reported by: KENNY BARRIOS on 11/28/141246 Last Action: Reviewed Levothyroxine Sodium (Levothyroxine Sodium) 125 Mcg Tablet, 125 MCG PO DAILY, (Reported) Entered as Reported by: JADE JACKSON on 06/26/201130 Last Action: Reviewed Losartan Potassium (Losartan Potassium) 100 Mg Tablet, 100 MG PO DAILY, (R eported) Entered as Reported by: NORMA PIERSON on 07/20/18 2651 Last Action: Reviewed Multivitamin (Multivitamin) 1 Each Tablet, 1 EACH PO DAILY, (Reported) Entered as Reported by: JADE JACKSON on 06/26/201130 Last Action: Reviewed [place]-3S/Dha/Epa/Fish Oil (Fish Oil 1,000 mg Softgel) 300 Mg (250 Mg-50 Mg)-1,000 Mg Capsule, 1 EACH PO DAILY, (Reported) Entered as Reported by: JADE JACKSON on 06/26/201130 Last Action: Reviewed Sitagliptin Phosphate (Januvia) 25 Mg Tablet, 25 MG PO DAILY, (Reported) Entered as Reported by: JADE JACKSON on 06/26/201130 Last Action: Reviewed Discontinued Medications Acetaminophen (Tylenol Extra Strength) 500 Mg Tablet, 500-1,000 MG PO Q6H PRN for PAIN-MILD (1-4), (Reported) Discontinued Reason: No Longer Taking Entered as Reported by: JADE JACKSON on 06/26/201130 Last Action: Discontinued Ascorbate Calcium (Vitamin C) 500 Mg Tablet, 500 MG PO DAILY, (Reported) Discontinued Reason: No Longer Taking Entered as Reported by: JADE JACKSON on 06/26/201130 Last Action: Discontinued Aspirin (Aspirin EC) 81 Mg Tablet.dr, 81 MG PO DAILY, (Reported) Entered as Reported by: KENNY BARRIOS on 11/28/141246 Last Action: Reviewed Atorvastatin Calcium (Atorvastatin Calcium) 20 Mg Tablet, 20 MG PO DAILY, (Reported) Discontinued Reason: No Longer Taking Entered as Reported by: KENNY BARRIOS on 11/28/141246 Last Action: Discontinued Carvedilol (Carvedilol) 6.25 Mg Tablet, 6.25 MG PO BID, (Reported) Discontinued Reason: Duplicate Order Entered as Reported by: NORMA PIERSON on 07/20/18 7927 Last Action: Discontinued Cholecalciferol (Vitamin D3) (Vitamin D3) 25 Mcg Capsule, 25 MCG PO DAILY, (Reported) Discontinued Reason: No Longer Taking Entered as Reported by: JADE JACKSON on 06/26/201130 Last Action: Discontinued Hydrochlorothiazide (Hydrochlorothiazide) 25 Mg Tablet, 25 MG PO DAILY PRN for FLUID RETENTION, (Reported) Discontinued Reason: No Longer Taking Entered as Reported by: JADE JACKSON on 06/26/201130 Last Action: Discontinued Lansoprazole (Prevacid 24Hr) 15 Mg Capsule.dr, 15 MG PO DAILY, (Reported) Discontinued Reason: No Longer Taking Entered as Reported by: JADE JACKSON on 06/26/201130 Last Action: Discontinued Review of Systems Review of Systems Constitutional: no symptoms reported Past Xnjoogb-Bmvreh-Kczegw Hx Immunizations Up To Date Tetanus Booster (TDap): More than 5yrs PED Vaccines UTD: Yes Seasonal Allergies Seasonal Allergies: No Past Medical History Surgeries: Yes (pancreas blockage-opened it up) Coronary Stent, Gallbladder, Hysterectomy Respiratory: No Cardiac: Yes (CARDIAC ARREST WITH VTACH, STENTS) Coronary Artery Disease, High Cholesterol, Hypertension Neurological: Yes Stroke, TIA Female Reproductive Disorders: 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 Sexually Transmitted Disease: No HIV/AIDS: No Genitourinary: No Gastrointestinal: Yes Gastroesophageal Reflux Musculoskeletal: Yes Arthritis Endocrine: Yes Hypothyroidsim, Diabetes, Non-Insulin dep HEENT: Yes (CATARACTS REMOVED) Loss of Vision: Denies Hearing Impairment: Denies Cancer: No Psychosocial: No Integumentary: No 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) Family Medical History Family history: Arthritis Family history: Asthma Family history: Coronary thrombosis Family history: Diabetes mellitus Family history: Thyroid disorder Headache Hereditary disease No Family History of: Abdominal aortic aneurysm [place] Head's disease Alcoholism Aphasia Cancer Cancer of colon Cataract Chest pain Congenital heart disease Congestive heart failure Cystic fibrosis Dementia Dysphagia Family history: Allergy Family history: Alzheimer's disease Family history: Breast disease Family history: Cardiovascular disease Family history: Gastrointestinal disease Family history: Glaucoma Family history: Hypertension Family history: Osteoporosis Hearing loss Heart disease History of - anemia History of - disorder History of - respiratory disease History of drug abuse Human immunodeficiency virus (HIV) seropositivity Hypercholesterolemia Infertile Kidney disease Malignant neoplasm of lung Myocardial infarction Parkinson's disease Prostate cancer Psychotic disorder Seizure disorder Stroke Tuberculosis Visual impairment Diabetes Physical Exam Vital Signs Vital Signs - First Documented 05/26/22 19:02 Pulse 116 B/P (MAP) 173/81 (111) Pulse Ox 96 O2 Delivery Room Air Capillary Refill : Height, Weight, BMI Height: 5'2.00" Weight: 167lbs. 0.0oz. [id number]; 30.00 BMI Method:Stated General Appearance: No Apparent Distress, WD/WN HEENT: Normal ENT Inspection, Pharynx Normal Neck: Full Range of Motion, Normal Inspection, Non Tender, Supple Respiratory: Chest Non Tender, Lungs Clear, Normal Breath Sounds, No Accessory Muscle Use, No Respiratory Distress Cardiovascular: Regular Rate, Rhythm, No Murmur, Normal Peripheral Pulses Gastrointestinal: Normal Bowel Sounds, No Organomegaly, No Pulsatile Mass, Non Tender, Soft Extremity: Normal Capillary Refill, Normal Inspection, Normal Range of Motion, Non Tender, No Calf Tenderness, No Pedal Edema Neurologic/Psychiatric: Alert, Normal Mood/Affect Skin: Normal Color, Warm/Dry Lymphatic: No Adenopathy Critical Care Note Critical Care Total Time (minutes) 60 Progress/Results/Core Measures Results/Orders Lab Results Laboratory Tests Test 05/26/22 19:10 Range/Units White Blood Count 8.2 4.3-11.0 10^3/uL Red Blood Count 4.00 3.80-5.11 10^6/uL Hemoglobin 12.3 11.5-16.0 g/dL Hematocrit 36 35-52 % Mean Corpuscular Volume 91 80-99 fL Mean Corpuscular Hemoglobin 31 25-34 pg Mean Corpuscular Hemoglobin Concent 34 32-36 g/dL Red Cell Distribution Width 12.0 10.0-14.5 % Platelet Count 244 130-400 10^3/uL Mean Platelet Volume 9.7 9.0-12.2 fL Immature Granulocyte % (Auto) 1 % Neutrophils (%) (Auto) 58 42-75 % Lymphocytes (%) (Auto) 29 12-44 % Monocytes (%) (Auto) 9 0-12 % Eosinophils (%) (Auto) 2 0-10 % Basophils (%) (Auto) 1 0-10 % Neutrophils # (Auto) 4.8 1.8-7.8 10^3/uL Lymphocytes # (Auto) 2.4 1.0-4.0 10^3/uL Monocytes # (Auto) 0.8 0.0-1.0 10^3/uL Eosinophils # (Auto) 0.2 0.0-0.3 10^3/uL Basophils # (Auto) 0.0 0.0-0.1 10^3/uL Immature Granulocyte # (Auto) 0.0 0.0-0.1 10^3/uL Prothrombin Time 13.6 12.2-14.7 SEC INR Comment 1.0 0.8-1.4 Sodium Level 138 135-145 MMOL/L Potassium Level 4.7 3.6-5.0 MMOL/L Chloride Level 107 98-107 MMOL/L Carbon Dioxide Level 19 L 21-32 MMOL/L Anion Gap 12 5-14 MMOL/L Blood Urea Nitrogen 33 H 7-18 MG/DL Creatinine 1.96 H 0.60-1.30 MG/DL Estimat Glomerular Filtration Rate 25 BUN/Creatinine Ratio 17 Glucose Level 171 H 70-105 MG/DL Calcium Level 9.1 8.5-10.1 MG/DL Corrected Calcium 8.9 8.5-10.1 MG/DL Magnesium Level 1.8 1.6-2.4 MG/DL Total Bilirubin 0.4 0.1-1.0 MG/DL Aspartate Amino Transf (AST/SGOT) 22 5-34 U/L Alanine Aminotransferase (ALT/SGPT) 21 0-55 U/L Alkaline Phosphatase 95 40-136 U/L Troponin I < 0.028 <0.028 NG/ML Total Protein 7.3 6.4-8.2 GM/DL Albumin 4.2 3.2-4.5 GM/DL My Orders Orders - BRITANY HUDSON DO Cbc With Automated Diff (05/26/22 19:08) Magnesium (05/26/22 19:08) Chest 1 View, Ap/Pa Only (05/26/22 19:08) Ekg Tracing (05/26/22 19:08) Comprehensive Metabolic Panel (05/26/22 19:08) Protime With Inr (05/26/22 19:08) Ed Iv/Invasive Line Start (05/26/22 19:08) Troponin I Nel (05/26/22 19:08) Aspirin Chewable Tablet (Baby Aspirin Ch (05/26/22 19:15) Nitroglycerin 0.4 Mg Btl 25's (Nitrostat (05/26/22 19:45) Ed Admission (Communication) (05/26/22 20:03) Medications Given in ED Vital Signs/I&O 05/26/22 19:02 Pulse 116 B/P (MAP) 173/81 (111) Pulse Ox 96 O2 Delivery Room Air Comment I have independently reviewed the EKG. It shows atrial fibrillation with an overall rate of about 106 bpm. Left axis deviation. Normal intervals outside of LA interval. Right bundle branch block. No ST or T wave abnormalities. Isolated PVC EKG : Comment I have independently reviewed the EKG and findings are as documented Atrial fibrillation with rate 109 bpm. Normal intervals outside of LA interval. Right bundle branch block. No STEMI. Left axis deviation. Diagnostic Imaging Diagonstic Imaging: Xray Plain Films/CT/US/NM/MRI: chest Comments AP chest x-ray: Negative for any acute findings I have independently reviewed the chest x-ray and findings are as documented. Departure Communication (Admissions) The patient appeared to be in new onset atrial fibrillation upon arrival. Initial EKG was somewhat questionable with baseline interference so repeat EKG was obtained and confirmed atrial fibrillation with a right bundle branch block. This does appear to be new. Her troponin is negative. I gave her aspirin and nitroglycerin early on in her hospital course and her chest pain has subsided after this treatment. Her chest x-ray is negative and I do not think this is likely respiratory source. She has left greater than right leg swelling however she states this is chronic. I think she is overall low risk for pulmonary embolism given this is a chronic finding. She is tachycardic but her chest pain is not pleuritic in nature and more consistent with cardiac type chest pain and pulmonary embolus. I do not think CT angiography is warranted at this time. Regarding atrial fibrillation, her blood pressure is stable. I spoke with Dr. Clark of cardiology directly who recommends a Cardizem drip which has been ordered at this time. I spoke to Dr. MUSA, the patient's primary care doctor who confirms that she is not aware of a history of atrial fibrillation in this patient. With that we will go ahead and start Eliquis, 5 mg p.o. twice daily she is also on Plavix at home and we will continue this. I made her n.p.o. after midnight in case of possible need for stress testing. She will be admitted to the floor for telemetry, cardiac monitoring given that her heart score is 5. Discussed with the patient she is comfortable agreeable current plan of care. Impression Primary Impression: Chest pain Qualified Codes: R07.9 - Chest pain, unspecified Additional Impression: Atrial fibrillation with RVR Disposition: ADMITTED INPATIENT Condition: Stable Admissions Decision to Admit Reason: Admit from ER (General) Departure-Patient Inst. Referrals: NUNU MUSA MD (PCP/Family) Primary Care Physician Scripts Apixaban (Eliquis) 2.5 Mg Tablet 2.5 MG PO BID, #60 TAB 3 Refills Prov: PAULA SANABRIA MD 05/27/22 Dronedarone HCl (Multaq) 400 Mg Tablet 400 MG PO BID, #60 TAB 4 Refills Prov: PAULA SANABRIA MD 05/27/22 BRITANY HUDSON DO May 26, 2022 19:11
[2022-05-26] MEDS ORDERED: ASPIRIN 81 MG CHEW (CHILDREN'S ASA) PO ONE (19:15)
[2022-05-26 19:22] LABS: BASOPHILS % (AUTO) 1 % (0-10); EOSINOPHILS # (AUTO) 0.2 10^3/uL (0.0-0.3); EOSINOPHILS % (AUTO) 2 % (0-10); HEMATOCRIT 36 % (35-52); HEMOGLOBIN 12.3 g/dL (11.5-16.0); LYMPHOCYTES # (AUTO) 2.4 10^3/uL (1.0-4.0); LYMPHOCYTES % (AUTO) 29 % (12-44); MEAN CORPUSCULAR HEMOGLOBIN 31 pg (25-34); MEAN CORPUSCULAR HGB CONC 34 g/dL (32-36); MEAN CORPUSCULAR VOLUME 91 fL (80-99); MEAN PLATELET VOLUME 9.7 fL (9.0-12.2); MONOCYTES # (AUTO) 0.8 10^3/uL (0.0-1.0); MONOCYTES % (AUTO) 9 % (0-12); NEUTROPHILS # (AUTO) 4.8 10^3/uL (1.8-7.8); NEUTROPHILS % (AUTO) 58 % (42-75); PLATELET COUNT 244 10^3/uL (130-400); WHITE BLOOD COUNT 8.2 10^3/uL (4.3-11.0)
[2022-05-26 19:29] LABS: ALBUMIN 4.2 GM/DL (3.2-4.5); POTASSIUM 4.7 MMOL/L (3.6-5.0)
[2022-05-26 19:30] LABS: CALCIUM 9.1 MG/DL (8.5-10.1)
--- NOTE | 2022-05-26 19:30 | Diagnostic Imaging Report ---
Indication: Chest pain. Time of Exam: 7:29 PM Correlation is made with prior chest 07/14/2021. Findings: The heart size is normal. The pulmonary vascularity is unremarkable. The lungs are clear. No infiltrate, effusion or pneumothorax is detected. Impression: No acute cardiopulmonary process is detected. Dictated by: Dictated on workstation # [id number]
[2022-05-26 19:31] LABS: PROTHROMBIN TIME PATIENT 13.6 SEC (12.2-14.7); TOTAL PROTEIN 7.3 GM/DL (6.4-8.2)
[2022-05-26 19:33] LABS: BILIRUBIN,TOTAL 0.4 MG/DL (0.1-1.0)
[2022-05-26 19:35] LABS: CREATININE SERUM 1.96 MG/DL (0.60-1.30)
[2022-05-26 19:38] LABS: MAGNESIUM 1.8 MG/DL (1.6-2.4)
[2022-05-26] MEDS ORDERED: NITROGLYCERIN 0.4 MG SL TABS BTL 25'S SL PRN (19:45)
[2022-05-26 21:50] VITALS: BP 172/72
[2022-05-26 22:00] VITALS: BP 147/59
[2022-05-26 22:15] VITALS: BP 133/77
[2022-05-26 22:30] VITALS: BP 130/59
[2022-05-26 22:45] VITALS: BP 134/59
[2022-05-26 23:00] VITALS: BP 125/59
[2022-05-26] MEDS: APIXABAN 5 MG (ELIQUIS) TABLET PO SCH (23:10)
[2022-05-26] MEDS: dilTIAZem DRIP 125 MG/125 ML DRIP IV SCH (23:23)
[2022-05-27] VITALS (16 sets, daily range): BP systolic 125–153; BP diastolic 55–89
[2022-05-27 04:23] LABS: BASOPHILS % (AUTO) 0 % (0-10); EOSINOPHILS # (AUTO) 0.2 10^3/uL (0.0-0.3); EOSINOPHILS % (AUTO) 3 % (0-10); HEMATOCRIT 32 % (35-52); HEMOGLOBIN 10.4 g/dL (11.5-16.0); LYMPHOCYTES # (AUTO) 1.8 10^3/uL (1.0-4.0); LYMPHOCYTES % (AUTO) 31 % (12-44); MEAN CORPUSCULAR HEMOGLOBIN 30 pg (25-34); MEAN CORPUSCULAR HGB CONC 33 g/dL (32-36); MEAN CORPUSCULAR VOLUME 93 fL (80-99); MEAN PLATELET VOLUME 9.9 fL (9.0-12.2); MONOCYTES # (AUTO) 0.5 10^3/uL (0.0-1.0); MONOCYTES % (AUTO) 9 % (0-12); NEUTROPHILS # (AUTO) 3.4 10^3/uL (1.8-7.8); NEUTROPHILS % (AUTO) 57 % (42-75); PLATELET COUNT 204 10^3/uL (130-400); WHITE BLOOD COUNT 5.9 10^3/uL (4.3-11.0)
[2022-05-27 04:56] LABS: CALCIUM 8.8 MG/DL (8.5-10.1); CREATININE SERUM 1.78 MG/DL (0.60-1.30); MAGNESIUM 1.6 MG/DL (1.6-2.4); POTASSIUM 4.3 MMOL/L (3.6-5.0)
[2022-05-27] MEDS: CATHETER FLUSH 10 ML SYR IVP SCH ×3 (06:15→21:55)
--- NOTE | 2022-05-27 08:29 | History & Physicial ---
History of Present Illness History of Present Illness Date of Admission May 26, 2022 at 21:35 I consulted on this patient on 05/27/22 08:29 Attending Physician Nunu Garrett MD Admitting Physician Admitting Physician: Nunu Garrett MD Attending Physician: Nunu Garrett MD Consult Allergies and Home Medications Allergies Coded Allergies: lisinopril (Unverified Allergy, Unknown, PT STATED SHE DOESNT REMEMBER , 11/28/14) Patient Home Medication List Amlodipine Besylate (Amlodipine Besylate) 10 Mg Tablet, 10 MG PO DAILY, (Repor silvia) Entered as Reported by: KENNY BARRIOS on 11/28/141246 Last Action: Reviewed Apixaban (Eliquis) 2.5 Mg Tablet, 2.5 MG PO BID Prescribed by: PAULA NUNN on 05/27/22 143 Aspirin (Aspirin EC) 81 Mg Tablet.dr, 81 MG PO DAILY, (Reported) Entered as Reported by: KENNY BARRIOS on 11/28/141246 Last Action: Reviewed Atorvastatin Calcium (Atorvastatin Calcium) 40 Mg Tablet, 40 MG PO DAILY, (Reported) Entered as Reported by: JADE JACKSON on 05/27/22 114 Last Action: Reviewed Carvedilol (Carvedilol) 12.5 Mg Tablet, 12.5 MG PO BID, (Reported) Entered as Reported by: JADE JACKSON on 05/27/22 114 Last Action: Reviewed Clopidogrel Bisulfate (Clopidogrel) 75 Mg Tablet, 75 MG PO DAILY, (Reported) Entered as Reported by: JADE JACKSON on 06/26/20 113 Last Action: Reviewed Dronedarone HCl (Multaq) 400 Mg Tablet, 400 MG PO BID Prescribed by: PALUA NUNN on 05/27/22 1431 Garlic (Garlic) 500 Mg Capsule, 500 MG PO 1800, (Reported) Entered as Reported by: JADE JACKSON on 06/26/20 113 Last Action: Reviewed Glipizide (Glipizide) 10 Mg Tablet, 10 MG PO DAILY, (Reported) Entered as Reported by: KENNY BARRIOS on 11/28/141246 Last Action: Reviewed Levothyroxine Sodium (Levothyroxine Sodium) 125 Mcg Tablet, 125 MCG PO DAILY, (Reported) Entered as Reported by: JADE JACKSON on 06/26/201130 Last Action: Reviewed Losartan Potassium (Losartan Potassium) 100 Mg Tablet, 100 MG PO DAILY, (Reported) Entered as Reported by: NORMA PIERSON on 07/20/181550 Last Action: Reviewed Multivitamin (Multivitamin) 1 Each Tablet, 1 EACH PO DAILY, (Reported) Entered as Reported by: JADE JACKSON on 06/26/201130 Last Action: Reviewed [place]-3S/Dha/Epa/Fish Oil (Fish Oil 1,000 mg Softgel) 300 Mg (250 Mg-50 Mg)- 1,000 Mg Capsule, 1 EACH PO DAILY, (Reported) Entered as Reported by: JADE JACKSON on 06/26/201130 Last Action: Reviewed Sitagliptin Phosphate (Januvia) 25 Mg Tablet, 25 MG PO DAILY, (Reported) Entered as Reported by: JADE JACKSON on 06/26/201130 Last Action: Reviewed Discontinued Medications Acetaminophen (Tylenol Extra Strength) 500 Mg Tablet, 500-1,000 MG PO Q6H PRN for PAIN-MILD (1-4), (Reported) Discontinued Reason: No Longer Taking Entered as Reported by: JADE JACKSON on 06/26/201130 Last Action: Discontinued Ascorbate Calcium (Vitamin C) 500 Mg Tablet, 500 MG PO DAILY, (Reported) Discontinued Reason: No Longer Taking Entered as Reported by: JADE JACKSON on 06/26/201130 Last Action: Discontinued Atorvastatin Calcium (Atorvastatin Calcium) 20 Mg Tablet, 20 MG PO DAILY, (Reported) Discontinued Reason: No Longer Taking Entered as Reported by: KENNY BARRIOS on 11/28/14 1247 Last Action: Discontinued Carvedilol (Carvedilol) 6.25 Mg Tablet, 6.25 MG PO BID, (Reported) Discontinued Reason: Duplicate Order Entered as Reported by: NORMA PIERSON on 07/20/181550 Last Action: Discontinued Cholecalciferol (Vitamin D3) (Vitamin D3) 25 Mcg Capsule, 25 MCG PO DAILY, (Reported) Discontinued Reason: No Longer Taking Entered as Reported by: JADE JACKSON on 06/26/201130 Last Action: Discontinued Hydrochlorothiazide (Hydrochlorothiazide) 25 Mg Tablet, 25 MG PO DAILY PRN for FLUID RETENTION, (Reported) Discontinued Reason: No Longer Taking Entered as Reported by: JADE JACKSON on 06/26/20 1131 Last Action: Discontinued Lansoprazole (Prevacid 24Hr) 15 Mg Capsule.dr, 15 MG PO DAILY, (Reported) Discontinued Reason: No Longer Taking Entered as Reported by: JADE JACKSON on 06/26/20 1131 Last Action: Discontinued Past Aphqfje-Ywymqf-Jfaqkh Hx Patient Social History 2nd Hand Smoke Exposure: No Recent Hopitalizations: No Alcohol Use?: No Pt feels they are or have been: No Immunizations Up To Date Tetanus Booster (TDap): More than 5yrs Pediatric: Yes Date of Pneumonia Vaccine: Nov 29, 2011 Date of Influenza Vaccine: Dec 27, 2021 Seasonal Allergies Seasonal Allergies: No Surgeries Yes (pancreas blockage-opened it up) Coronary Stent, Gallbladder, Hysterectomy Respiratory No Cardiovascular Yes (CARDIAC ARREST WITH VTACH, STENTS) Coronary Artery Disease, High Cholesterol, Hypertension Neurological Yes Stroke, TIA Reproductive System Sexually Transmitted Disease: No HIV/AIDS: No Female Reproductive Disorders: Denies [employer] History: Hysterectomy Genitourinary No Gastrointestinal Yes Gastroesophageal Reflux Musculoskeletal Yes Arthritis Endocrine History of Endocrine Disorders: Yes Endocrine Disorders: Hypothyroidsim, Diabetes, Non-Insulin dep HEENT History of HEENT Disorders: Yes (CATARACTS REMOVED) Loss of Vision: Denies Hearing Impairment: Denies Cancer No Psychosocial History of Psychiatric Problem: No Integumentary History of Skin or Integumenta: No Blood Transfusions History of 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) Family Medical History Significant Family History: Diabetes Family Hx: Family history: Arthritis Family history: Asthma Family history: Coronary thrombosis Family history: Diabetes mellitus Family history: Thyroid disorder Headache Hereditary disease No Family History of: Abdominal aortic aneurysm Chaitanya's disease Alcoholism Aphasia Cancer Cancer of colon Cataract Chest pain Congenital heart disease Congestive heart failure Cystic fibrosis Dementia Dysphagia Family history: Allergy Family history: Alzheimer's disease Family history: Breast disease Family history: Cardiovascular disease Family history: Gastrointestinal disease Family history: Glaucoma Family history: Hypertension Family history: Osteoporosis Hearing loss Heart disease History of - anemia History of - disorder History of - respiratory disease History of drug abuse Human immunodeficiency virus (HIV) seropositivity Hypercholesterolemia Infertile Kidney disease Malignant neoplasm of lung Myocardial infarction Parkinson's disease Prostate cancer Psychotic disorder Seizure disorder Stroke Tuberculosis Visual impairment Physical Exam Vital Signs Vital Signs - First Documented 05/26/22 05/26/22 19:02 21:50 Temp 36.6 Pulse 116 Resp 18 B/P (MAP) 173/81 (111) Pulse Ox 96 O2 Delivery Room Air Capillary Refill : Height, Weight, BMI Height: 5'2.00" Weight: 167lbs. 0.0oz. [id number]; 29.82 BMI Method:Stated NUNU GARRETT MD May 27, 2022 08:29
[2022-05-27] MEDS: APIXABAN 5 MG (ELIQUIS) TABLET PO SCH (09:56)
[2022-05-27] MEDS ORDERED: ATOR40TA70 PO (11:40)
[2022-05-27] MEDS ORDERED: CARV12.53 PO (11:40)
[2022-05-27] MEDS ORDERED: NS IV 1000 ML 1,000 ML IV SCH (12:00)
[2022-05-27] MEDS ORDERED: NS IV 1000 ML 1,000 ML ONE (12:26)
[2022-05-27] MEDS ORDERED: HEParin (CATH LAB) 2,000 ML IV ONE (12:26)
[2022-05-27] MEDS ORDERED: LIDOCAINE 1% INJ 20 ML VIAL ONE (12:26)
--- NOTE | 2022-05-27 12:35 | Consultation-Cardiology ---
HPI-Cardiology Cardiology Consultation Date of Consultation 05/27/22 Date of Admission Time Seen by Provider: 12:26 Indication: Chest pain, atrial fibrillation HPI Patient is an 82 y/o female with history or CAD, HTN, HLP. Presented to the ER with complaints of intermittent chest pain for the past 2 days. Associated dyspnea on exertion. Denies any dizziness, lightheadedness or syncope. Home Medications & Allergies Allergies: Coded Allergies: lisinopril (Unverified Allergy, Unknown, PT STATED SHE DOESNT REMEMBER , 11/28/14) Home Medication List Reviewed: Yes [id number]-Tizdok-Hdajal Hx Patient Social History Employed/Student: retired Recreational Drug Use: No 2nd Hand Smoke Exposure: No Recent Hopitalizations: No Alcohol Use?: No Immunizations Up To Date Tetanus Booster (TDap): More than 5yrs Date of Pneumonia Vaccine: Nov 29, 2011 Date of Influenza Vaccine: Dec 27, 2021 Past Medical History CAD, HTN, HLP Family Medical History Significant Family History: Diabetes Family History: Family history: Arthritis Family history: Asthma Family history: Coronary thrombosis Family history: Diabetes mellitus Family history: Thyroid disorder Headache Hereditary disease No Family History of: Abdominal aortic aneurysm Stonewall's disease Alcoholism Aphasia Cancer Cancer of colon Cataract Chest pain Congenital heart disease Congestive heart failure Cystic fibrosis Dementia Dysphagia Family history: Allergy Family history: Alzheimer's disease Family history: Breast disease Family history: Cardiovascular disease Family history: Gastrointestinal disease Family history: Glaucoma Family history: Hypertension Family history: Osteoporosis Hearing loss Heart disease History of - anemia History of - disorder History of - respiratory disease History of drug abuse Human immunodeficiency virus (HIV) seropositivity Hypercholesterolemia Infertile Kidney disease Malignant neoplasm of lung Myocardial infarction Parkinson's disease Prostate cancer Psychotic disorder Seizure disorder Stroke Tuberculosis Visual impairment Review of Systems-General Review of Systems Constitutional: no symptoms reported, see HPI EENTM: see HPI; No blurred vision, No double vision Respiratory: see HPI; No cough; dyspnea on exertion Cardiovascular: see HPI, chest pain, Hx of Intervention, vascular heart diseas Gastrointestinal: No abdominal pain Musculoskeletal: no symptoms reported Skin: no symptoms reported; No change in color, No lesions Reviewed Test Results Reviewed Test Results Lab Laboratory Tests 05/26/22 19:10: White Blood Count 8.2, Red Blood Count 4.00, Hemoglobin 12.3, Hematocrit 36, Mean Corpuscular Volume 91, Mean Corpuscular Hemoglobin 31, Mean Corpuscular Hemoglobin Concent 34, Red Cell Distribution Width 12.0, Platelet Count 244, Mean Platelet Volume 9.7, Immature Granulocyte % (Auto) 1, Neutrophils (%) (Auto) 58, Lymphocytes (%) (Auto) 29, Monocytes (%) (Auto) 9, Eosinophils (%) (Auto) 2, Basophils (%) (Auto) 1, Neutrophils # (Auto) 4.8, Lymphocytes # (Auto) 2.4, Monocytes # (Auto) 0.8, Eosinophils # (Auto) 0.2, Basophils # (Auto) 0.0, Immature Granulocyte # (Auto) 0.0, Prothrombin Time 13.6, INR Comment 1.0, Sodium Level 138, Potassium Level 4.7, Chloride Level 107, Carbon Dioxide Level 19L, Anion Gap 12, Blood Urea Nitrogen 33H, Creatinine 1.96H, Estimat Glomerular Filtration Rate 25, BUN/Creatinine Ratio 17, Glucose Level 171H, Calcium Level 9.1, Corrected Calcium 8.9, Magnesium Level 1.8, Total Bilirubin 0.4, Aspartate Amino Transf (AST/SGOT) 22, Alanine Aminotransferase (ALT/SGPT) 21, Alkaline Phosphatase 95, Troponin I < 0.028, Total Protein 7.3, Albumin 4.2 05/27/22 03:46: White Blood Count 5.9, Red Blood Count 3.45L, Hemoglobin 10.4L, Hematocrit 32L, Mean Corpuscular Volume 93, Mean Corpuscular Hemoglobin 30, Mean Corpuscular Hemoglobin Concent 33, Red Cell Distribution Width 12.2, Platelet Count 204, Mean Platelet Volume 9.9, Immature Granulocyte % (Auto) 1, Neutrophils (%) (A uto) 57, Lymphocytes (%) (Auto) 31, Monocytes (%) (Auto) 9, Eosinophils (%) (Auto) 3, Basophils (%) (Auto) 0, Neutrophils # (Auto) 3.4, Lymphocytes # (Auto) 1.8, Monocytes # (Auto) 0.5, Eosinophils # (Auto) 0.2, Basophils # (Auto) 0.0, Immature Granulocyte # (Auto) 0.0, Sodium Level 139, Potassium Level 4.3, Chloride Level 111H, Carbon Dioxide Level 18L, Anion Gap 10, Blood Urea Nitrogen 35H, Creatinine 1.78H, Estimat Glomerular Filtration Rate 28, BUN/Creatinine Ratio 20, Glucose Level 205H, Calcium Level 8.8, Magnesium Level 1.6 05/27/22 12:05: ECG Impression ECG Initial ECG Impression: Atrial Fibrillation Physical Exam Physical Exam Vital Signs Vital Signs - First Documented 05/26/22 05/26/22 19:02 21:50 Temp 36.6 Pulse 116 Resp 18 B/P (MAP) 173/81 (111) Pulse Ox 96 O2 Delivery Room Air Capillary Refill : Height, Weight, BMI Height: 5'2.00" Weight: 167lbs. 0.0oz. [id number]; 29.82 BMI Method:Stated General Appearance: No Apparent Distress, WD/WN HEENT: TMs Normal, Normal ENT Inspection Neck: Non Tender, Supple Respiratory: Chest Non Tender, Lungs Clear, Normal Breath Sounds Cardiovascular: Regular Rate, Rhythm Gastrointestinal: Non Tender, Soft Back: No CVA Tenderness Extremity: Non Tender Neurologic/Psychiatric: Alert, Oriented x3 Skin: Normal Color, Warm/Dry Lymphatic: No Adenopathy A/P-Cardiology Admission Diagnosis Chest pain CAD afib HTN Assessment/Plan Chest pain, nonspecific etiology,resembling angina, has been having intermittent chest pain for the past 2 days. Initial troponin negative. EKG done in the ER showing atrial fibrillation with no acute ST changes. Will repeat troponin. Planning for [facility] for further evaluation. Atrial fibrillation, new onset, EKG done in ER showing atrial fibrillation. Patient converted to sinus rhythm on her own. Currently in SR. Started on Eliquis 5mg BID. I will add Multaq 400mg BID. Coronary artery disease Sudden cardiac on [address] elevation VA; severe stenosis at ostium/prox LAD, successful deployment of 2 overlapping stents ostial 2.5 x 12 mm Promus Premier, prox 2.5 x 24mm Promus Premier with excellent results; mid to distal LAD has 70% stenosis; fairly small artery will treat medically; large dominant CX artery with mild disease, the OM1 branch has 70% ostial stenosis will treat medically; small nondominant right. Another cardiac catheterization on February 13, 2018 after having chest pain with negative troponin with stent deployment to the circumflex artery using Guerda 2.7515 mm, balloon angioplasty for the LAD in-stent restenosis then deployment of 2 additional stent in the LAD using Guerda 2.2528 and 2.523 mm. Patient had an abnormal stress test then cardiac catheterization done on June 26, 2020 showing subtotal occlusion in the LAD with balloon angioplasty to the full LAD body extending from the ostium to the distal LAD with multiple inflati on with excellent results, patent stent in the proximal circumflex artery and small nondominant right. Stress test was done in July 2021 showing extracardiac attenuation affecting the quality of the images with no significant ischemia or infarction, her stress score was 5, SDS 5, ejection fraction 67%. Planning for [facility] for further evaluation 2D echo was done on July 30, 2021 showing normal LV size with EF 50 to 55%, mild mitral regurgitation, PA pressure 35 to 40 mmHg. 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 Mild shortness of breath, feeling better at this time. Continue to monitor Hypertension, maintained on amlodipine 10 mg daily, carvedilol 12.5 mg twice a day, hydrochlorothiazide 25 mg daily, losartan 100 mg daily. Better control blood pressure. Continue to monitor Hyperlipidemia, lipid profile was done on May 12, 2021 with total cholesterol 137, HDL 38, triglyceride 109, LDL 77. I will reevaluate lipid profile. Diabetes mellitus, followed and managed by primary care physician. Continue to monitor Hypothyroidism, followed and managed by primary care physician Moderate bilateral carotid stenosis, previously monitored by Dr. Cotter, most recent carotid duplex done in our office Apr 2021, continue to monitor. Thank you for allowing us to participate in the management of Ms. Lucas. This is Elin Parker PA-C, as a scribe for Dr. Sanabria. Patient was seen and evaluated with Elin, I interviewed and examined the patient, discussed the management plan Patient has classic signs and symptoms of angina Had new onset paroxysmal atrial fibrillation Started on Eliquis I am planning to proceed with left heart catheterization possible PTCA. Her last stress test in July 2021 was borderline with extracardiac attenuation. Continue to monitor. ELIN HECTOR May 27, 2022 12:35 PAULA SANABRIA MD May 27, 2022 13:28
--- NOTE | 2022-05-27 13:27 | Cardiac Procedure Note-CS/ASA ---
Pre-Procedure Note Pre-Op Procedure Note Date of Available H&P: May 27, 2022 Date H&P Reviewed: May 27, 2022 Time H&P Reviewed: 13:26 History & Physical: H&P Reviewed, Patient Examed, No changes noted Pre-Operative Diagnosis: Coronary artery disease Conscious Sedation Pre-Proced Time 13:26 ASA Score 3 For ASA 3 and 4: Consider anesthesia and medical clearance. Also, for patients with a history of failed moderate sedation consider anesthesia. Airway Lungs Heart ASA score ASA 1: a normal healthy patient ASA 2: a patient with a mild systemic disease (mid diabetes, controlled hypertension, obesity ASA 3: a patient with a severe systemic disease that limits activity (angina, COPD, prior Myocardial infarction) ASA 4: a patient with an incapacitating disease that is a constant threat to life (CHF, renal failure) ASA 5: a moribund patient not expected to survive 24 hrs. (ruptured aneurysm) ASA 6: a declared brain- patient whose organs are being harvested. For emergent operations, add the letter E after the classification Mallampati Classification Grade 3 Sedation Plan Analgesia, Amnesia, Plan communicated to team members, Discussed options with patient/fam, Discussed risks with patient/fam The patient is an appropriate candidate to undergo the planned procedure, sedation, and anesthesia. The patient immediately re-assessed prior to indication. PAULA NUNN MD May 27, 2022 13:27
[2022-05-27] MEDS ORDERED: fentaNYL INJ 100 MCG/2 ML AMP ONE (13:47)
[2022-05-27] MEDS ORDERED: VERAPAMIL 5 MG/2 ML (CALAN) VIAL IV ONE (13:47)
[2022-05-27] MEDS ORDERED: MIDAZOLAM 5 MG/5 ML (VERSED) VIAL ONE (13:48)
[2022-05-27] MEDS ORDERED: NITRO DRIP 25000 MCG/D5W 250 ML IV ONE (13:48)
[2022-05-27] MEDS ORDERED: HEParin 1000 UNIT/ML (10ML VIAL) FOR BOLUS ONE (13:48)
[2022-05-27] MEDS ORDERED: DRON400T6 PO (14:31)
[2022-05-27] MEDS ORDERED: APIX2.5T PO (14:31)
--- NOTE | 2022-05-27 14:32 | Discharge Inst-Post CATH ---
Discharge Inst-CATH/EP Problems Reviewed?: Yes Post Cardiac Cath/EP D/C Inst Follow Up/Plan Appointment with Dr. Sanabria's office in 2 to 4 weeks <b>CARDIAC CATH/EP PROCEDURE DISCHARGE INSTRUCTIONS</b> ACTIVITY * Go Home directly and rest. * Limit activity of the leg (or wrist if it was used) for 7 days including aer obics, swimming, jogging, bicycling, etc. * Restrict stair-climbing for 7 days if possible, if not, climb up with your non-cath leg, then bring together on the same step. * Avoid lifting, pushing, pulling or excessive movement of the affected extremi ty for 7 days. * Customary sexual activity may be resumed after 2 days-use caution not to use a position that strains or causes pain to the affected extremity. * No driving for 24 hours. * NO SMOKING. * Avoid straining for bowel movements for 7 days. * Gentle walking on level ground is allowed. * Returning to work will depend on the type of procedure and the results. Your doctor will discuss this with you. CALL YOUR DOCTOR FOR ANY OF THE FOLLOWING: *If bleeding from the puncture site occurs- Apply gentle pressure to site with clean cloth and call your doctor or EMS. * If a knot or lump forms under the skin, increases in size, or causes pain. * If bruising appears to be worsening or moving further down your leg instead of disappearing. * Temperature above 101 F. CARE OF YOUR GROIN INCISION; * Bruising or purple discoloration of the skin near the puncture site is common. * You may shower only, no bathtub bathing for 5 days. Be careful to avoid slipping as your leg may feel stiff. * If a closure device was used on your femoral artery, please see the attached guide regarding care of the device and your leg. * Leave dressing on FOR 24 hours. CARE OF YOUR WRIST INCISION; * Bruising or purple discoloration of the skin near the puncture site is common. * You may shower. * DO NOT submerge wrist. * Leave dressing on FOR 24 hours. PAULA SANABRIA MD May 27, 2022 14:31
--- NOTE | 2022-05-27 14:36 | Cardiac Cath Report ---
Cardiac Cath Report Physician (s)/Casing Puller (s) Physician PAULA NUNN MD Pre-Procedure Diagnosis Pre-Procedure Diagnosis: Coronary artery disease Post-Procedure Note Procedure Start Date: May 27, 2022 Name of Procedure: Left heart catheterization Findings/Procedure Note PROCEDURE NOTE: 82-year-old lady with history of coronary artery disease, multiple stents in the LAD, severe in-stent restenosis in 2020, admitted with chest pain, was in atrial fibrillation with rapid ventricular response. Has been having episodes of chest pain on and off. We advised her for cardiac catheterization possible PTCA. After explaining the procedure to the patient, all pros and cons were explained, all questions were answered. The patient signed the consent and then she was placed in the cardiac catheterization laboratory. Groin was prepped in SL fashion local anesthesia was used. Sheath placed in the right radial artery, [place] catheter was advanced to the left ventricular cavity, pressure was measured, pullback LV to aorta was done, engage the right and left coronary system, multiple views were obtained. At the end of the procedure the sheath was removed. Vascular band was used FINDINGS: Hemodynamics LV 117/8, end-diastolic pressure of 8 Aorta 118/64 mean of 86 ANATOMY: Left Main is free of obstructive disease Left Anterior Descending has multiple stents extending from the proximal to distal portion. Mild to moderate in-stent restenosis nonobstructive disease. Left Circumflex is moderate in size, dominant artery with mild coronary artery disease Right Coronary Artery small nondominant artery with no obstructive disease LV Gram was not done, pressure was measured CONCLUSION: Patent stent in the proximal mid and distal LAD with small vessel disease at the distal LAD nonobstructive disease Otherwise nonobstructive coronary artery disease Normal left ventricular end-diastolic pressure DISCUSSION AND RECOMMENDATION: Chest pain is probably due to small vessel disease in addition to the atrial fibrillation with rapid ventricular response. Continue to maximize medical therapy Discussed with edilson Barnard for discharge, started on Eliquis and Plavix in addition to Multaq and stop aspirin. Anesthesia Type: Conscious Sedation Estimated blood loss (mL): 10 ml Contrast Amount: 13 ml Total Radiation Dose: 104 mGy Post-Procedure Diagnosis Post-operative diagnosis: Chest pain Coronary artery disease Paroxysmal atrial fibrillation Hypertension PAULA NUNN MD May 27, 2022 14:36
[2022-05-27] MEDS: NS IV 1000 ML 1,000 ML IV SCH (16:06)
--- NOTE | 2022-05-27 16:37 | Short Stay Summary ---
History of Present Illness History of Present Illness Date of Admission May 26, 2022 at 21:35 Date of Discharge Attending Physician Nunu Garrett MD Admitting Physician Admitting Physician: Nunu Garrett MD Attending Physician: Nunu Garrett MD Consult Allergies and Home Medications Allergies Coded Allergies: lisinopril (Unverified Allergy, Unknown, PT STATED SHE DOESNT REMEMBER , 11/28/14) Patient Home Medication List Amlodipine Besylate (Amlodipine Besylate) 10 Mg Tablet, 10 MG PO DAILY, (Reported) Entered as Reported by: KENNY BARRIOS on 11/28/141246 Last Action: Reviewed Apixaban (Eliquis) 2.5 Mg Tablet, 2.5 MG PO BID Prescribed by: PAULA NUNN on 05/27/22 143 Aspirin (Aspirin EC) 81 Mg Tablet.dr, 81 MG PO DAILY, (Reported) Entered as Reported by: KENNY BARRIOS on 11/28/141246 Last Action: Reviewed Atorvastatin Calcium (Atorvastatin Calcium) 40 Mg Tablet, 40 MG PO DAILY, (Reported) Entered as Reported by: JADE JACKSON on 05/27/22 1140 Last Action: Reviewed Carvedilol (Carvedilol) 12.5 Mg Tablet, 12.5 MG PO BID, (Reported) Entered as Reported by: JADE JACKSON on 05/27/22 114 Last Action: Reviewed Clopidogrel Bisulfate (Clopidogrel) 75 Mg Tablet, 75 MG PO DAILY, (Reported) Entered as Reported by: JADE JACKSON on 06/26/20 113 Last Action: Reviewed Dronedarone HCl (Multaq) 400 Mg Tablet, 400 MG PO BID Prescribed by: PAULA NUNN on 05/27/22 1431 Garlic (Garlic) 500 Mg Capsule, 500 MG PO 1800, (Reported) Entered as Reported by: JADE JACKSON on 06/26/20 113 Last Action: Reviewed Glipizide (Glipizide) 10 Mg Tablet, 10 MG PO DAILY, (Reported) Entered as Reported by: KENNY BARRIOS on 11/28/141246 Last Action: Reviewed Levothyroxine Sodium (Levothyroxine Sodium) 125 Mcg Tablet, 125 MCG PO DAILY, (R eported) Entered as Reported by: JADE JACKSON [place] 31130 Last Action: Reviewed Losartan Potassium (Losartan Potassium) 100 Mg Tablet, 100 MG PO DAILY, (Reported) Entered as Reported by: NORMA PIERSON on 07/20/181550 Last Action: Reviewed Multivitamin (Multivitamin) 1 Each Tablet, 1 EACH PO DAILY, (Reported) Entered as Reported by: JADE JACKSON on 06/26/201130 Last Action: Reviewed [place]-3S/Dha/Epa/Fish Oil (Fish Oil 1,000 mg Softgel) 300 Mg (250 Mg-50 Mg)- 1,000 Mg Capsule, 1 EACH PO DAILY, (Reported) Entered as Reported by: JADE JACKSON on 06/26/201130 Last Action: Reviewed Sitagliptin Phosphate (Januvia) 25 Mg Tablet, 25 MG PO DAILY, (Reported) Entered as Reported by: JADE JACKSON on 06/26/201130 Last Action: Reviewed Discontinued Medications Acetaminophen (Tylenol Extra Strength) 500 Mg Tablet, 500-1,000 MG PO Q6H PRN for PAIN-MILD (1-4), (Reported) Discontinued Reason: No Longer Taking Entered as Reported by: JADE JACKSON on 06/26/201130 Last Action: Discontinued Ascorbate Calcium (Vitamin C) 500 Mg Tablet, 500 MG PO DAILY, (Reported) Discontinued Reason: No Longer Taking Entered as Reported by: JADE JACKSON on 06/26/201130 Last Action: Discontinued Atorvastatin Calcium (Atorvastatin Calcium) 20 Mg Tablet, 20 MG PO DAILY, (R eported) Discontinued Reason: No Longer Taking Entered as Reported by: KENNY BARRIOS on 11/28/14 1247 Last Action: Discontinued Carvedilol (Carvedilol) 6.25 Mg Tablet, 6.25 MG PO BID, (Reported) Discontinued Reason: Duplicate Order Entered as Reported by: NORMA PIERSON on 07/20/181550 Last Action: Discontinued Cholecalciferol (Vitamin D3) (Vitamin D3) 25 Mcg Capsule, 25 MCG PO DAILY, (Reported) Discontinued Reason: No Longer Taking Entered as Reported by: JADE JACKSON on 06/26/201130 Last Action: Discontinued Hydrochlorothiazide (Hydrochlorothiazide) 25 Mg Tablet, 25 MG PO DAILY PRN for FLUID RETENTION, (Reported) Discontinued Reason: No Longer Taking Entered as Reported by: JADE JACKSON on 06/26/201130 Last Action: Discontinued Lansoprazole (Prevacid 24Hr) 15 Mg Capsule.dr, 15 MG PO DAILY, (Reported) Discontinued Reason: No Longer Taking Entered as Reported by: JADE JACKSON on 06/26/201130 Last Action: Discontinued Past Ximhruy-Vrouuf-Xflrvf Hx Patient Social History Employed/Student: retired 2nd Hand Smoke Exposure: No Recent Hopitalizations: No Alcohol Use?: No Pt feels they are or have been: No Immunizations Up To Date Tetanus Booster (TDap): More than 5yrs Pediatric: Yes Date of Pneumonia Vaccine: Nov 29, 2011 Date of Influenza Vaccine: Dec 27, 2021 Seasonal Allergies Seasonal Allergies: No Surgeries Yes (pancreas blockage-opened it up) Coronary Stent, Gallbladder, Hysterectomy Respiratory No Cardiovascular Yes (CARDIAC ARREST WITH VTACH, STENTS) Coronary Artery Disease, High Cholesterol, Hypertension Neurological Yes Stroke, TIA Reproductive System Sexually Transmitted Disease: No HIV/AIDS: No Female Reproductive Disorders: Denies FAMILY PROGRAM SPECIALIST History: Hysterectomy Genitourinary No Gastrointestinal Yes Gastroesophageal Reflux Musculoskeletal Yes Arthritis Endocrine History of Endocrine Disorders: Yes Endocrine Disorders: Hypothyroidsim, Diabetes, Non-Insulin dep HEENT History of HEENT Disorders: Yes (CATARACTS REMOVED) Loss of Vision: Denies Hearing Impairment: Denies Cancer No Psychosocial History of Psychiatric Problem: No Integumentary History of Skin or Integumenta: No Blood Transfusions History of 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) Family Medical History Significant Family History: Diabetes Family Hx: Family history: Arthritis Family history: Asthma Family history: Coronary thrombosis Family history: Diabetes mellitus Family history: Thyroid disorder Headache Hereditary disease No Family History of: Abdominal aortic aneurysm Chaitanya's disease Alcoholism Aphasia Cancer Cancer of colon Cataract Chest pain Congenital heart disease Congestive heart failure Cystic fibrosis Dementia Dysphagia Family history: Allergy Family history: Alzheimer's disease Family history: Breast disease Family history: Cardiovascular disease Family history: Gastrointestinal disease Family history: Glaucoma Family history: Hypertension Family history: Osteoporosis Hearing loss Heart disease History of - anemia History of - disorder History of - respiratory disease History of drug abuse Human immunodeficiency virus (HIV) seropositivity Hypercholesterolemia Infertile Kidney disease Malignant neoplasm of lung Myocardial infarction Parkinson's disease Prostate cancer Psychotic disorder Seizure disorder Stroke Tuberculosis Visual impairment Physical Exam Vital Signs Vital Signs - First Documented 05/26/22 05/26/22 19:02 21:50 Temp 36.6 Pulse 116 Resp 18 B/P (MAP) 173/81 (111) Pulse Ox 96 O2 Delivery Room Air Capillary Refill : Height, Weight, BMI Height: 5'2.00" Weight: 167lbs. 0.0oz. 75.165253dq; 29.82 BMI Method:Stated Short Stay Diagnosis Conclusion Labs Laboratory Tests 05/26/22 19:10: White Blood Count 8.2, Red Blood Count 4.00, Hemoglobin 12.3, Hematocrit 36, Mean Corpuscular Volume 91, Mean Corpuscular Hemoglobin 31, Mean Corpuscular Hemoglobin Concent 34, Red Cell Distribution Width 12.0, Platelet Count 244, Mean Platelet Volume 9.7, Immature Granulocyte % (Auto) 1, Neutrophils (%) (Auto) 58, Lymphocytes (%) (Auto) 29, Monocytes (%) (Auto) 9, Eosinophils (%) (Auto) 2, Basophils (%) (Auto) 1, Neutrophils # (Auto) 4.8, Lymphocytes # (Auto) 2.4, Monocytes # (Auto) 0.8, Eosinophils # (Auto) 0.2, Basophils # (Auto) 0.0, Immature Granulocyte # (Auto) 0.0, Prothrombin Time 13.6, INR Comment 1.0, Sodium Level 138, Potassium Level 4.7, Chloride Level 107, Carbon Dioxide Level 19L, Anion Gap 12, Blood Urea Nitrogen 33H, Creatinine 1.96H, Estimat Glomerular Filtration Rate 25, BUN/Creatinine Ratio 17, Glucose Level 171H, Calcium Level 9.1, Corrected Calcium 8.9, Magnesium Level 1.8, Total Bilirubin 0.4, Aspartate Amino Transf (AST/SGOT) 22, Alanine Aminotransferase (ALT/SGPT) 21, Alkaline Phosphatase 95, Troponin I < 0.028, Total Protein 7.3, Albumin 4.2 05/27/22 03:46: White Blood Count 5.9, Red Blood Count 3.45L, Hemoglobin 10.4L, Hematocrit 32L, Mean Corpuscular Volume 93, Mean Corpuscular Hemoglobin 30, Mean Corpuscular Hemoglobin Concent 33, Red Cell Distribution Width 12.2, Platelet Count 204, Mónica n Platelet Volume 9.9, Immature Granulocyte % (Auto) 1, Neutrophils (%) (Auto) 57, Lymphocytes (%) (Auto) 31, Monocytes (%) (Auto) 9, Eosinophils (%) (Auto) 3, Basophils (%) (Auto) 0, Neutrophils # (Auto) 3.4, Lymphocytes # (Auto) 1.8, Monocytes # (Auto) 0.5, Eosinophils # (Auto) 0.2, Basophils # (Auto) 0.0, Immature Granulocyte # (Auto) 0.0, Sodium Level 139, Potassium Level 4.3, Chloride Level 111H, Carbon Dioxide Level 18L, Anion Gap 10, Blood Urea Nitrogen 35H, Creatinine 1.78H, Estimat Glomerular Filtration Rate 28, BUN/Creatinine Ratio 20, Glucose Level 205H, Calcium Level 8.8, Magnesium Level 1.6 05/27/22 12:05: Troponin I < 0.028 NUNU GARRETT MD May 27, 2022 16:37
[2022-05-27] MEDS: APIXABAN 2.5 MG (ELIQUIS) TABLET PO SCH (21:54)
[2022-05-27] MEDS: DRONEDARONE 400 MG TABLET PO SCH (21:54)
[2022-05-27] MEDS: dilTIAZem DRIP 125 MG/125 ML DRIP IV SCH (22:17)
[2022-05-28] VITALS: BP 136/63
[2022-05-28] MEDS: NS IV 1000 ML 1,000 ML IV SCH (00:45)
[2022-05-28 04:00] VITALS: BP 124/58
[2022-05-28] MEDS: CATHETER FLUSH 10 ML SYR IVP SCH (05:43)
--- NOTE | 2022-05-28 07:46 | Cardiology Progress Note ---
Subjective Date Seen by Provider: May 28, 2022 Time Seen by Provider: 07:45 Subjective/Events-last exam Patient was seen at bedside, discharge was held due to transient episode of atrial fibrillation Review of Systems General: No Chills, No Night Sweats, No Fatigue, No Malaise, No Appetite, No Other HEENT: No Head Aches, No Visual Changes, No Eye Pain, No Ear Pain, No Dysphasia, No Sinus Congestion, No Post Nasal Drip, No Sore Throat, No Other Pulmonary: No Dyspnea, No Cough, No Pleuritic Chest Pain, No Other Cardiovascular: No: Chest Pain, Palpitations, Orthopnea, Paroxysmal Noc. Dyspn ea, Edema, Lt Headedness, Other Objective-Cardiology Exam Last Set of Vital Signs Vital Signs 05/28/22 05/28/22 00:50 04:00 Temp 36.6 Pulse 73 Resp 18 B/P (MAP) 124/58 (80) Pulse Ox 94 O2 Delivery Room Air I&O Intake and Output 05/28/22 00:00 Intake Total 200 ml Balance 200 ml Intake Oral 200 ml # Voids 5 General: Alert, Oriented X3, Cooperative HEENT: Atraumatic, PERRLA Neck: Supple, No JVD, No Thyromegaly Lungs: Clear to Auscultation, Normal Air Movement Heart: Regular Rate, Normal S1, Normal S2, No Murmurs Abdomen: Normal Bowel Sounds, Soft, No Tenderness, No Hepatosplenomegaly, No Masses Extremities: No Clubbing, No Cyanosis, No Edema, Normal Pulses, No Tenderness/Swelling Skin: No Rashes, No Breakdown, No Significant Lesion Neuro: Normal Gait, Normal Speech, Strength at 5/5 X4 Ext, Normal Tone, Sensation Intact Psych/Mental Status: Mental Status NL, Mood NL A/P-Cardiology Admission Diagnosis Chest pain CAD afib HTN Assessment/Plan Chest pain, nonspecific etiology,resembling angina, has been having intermittent chest pain for the past 2 days. Initial troponin negative. EKG done in the ER showing atrial fibrillation with no acute ST changes. Will repeat troponin. Planning for [facility] for further evaluation. Paroxysmal atrial fibrillation, new onset, EKG done in ER showing atrial fibrillation. Had another episode of short atrial fibrillation last night prior to discharge She was started on Multaq 400 twice daily and Eliquis 5 mg twice daily Okay for discharge at this point. Coronary artery disease Sudden cardiac on [address] elevation [place]; severe stenosis at ostium/prox LAD, successful deployment of 2 overlapping stents ostial 2.5 x 12 mm Promus Premier, prox 2.5 x 24mm Promus Premier with excellent results; mid to distal LAD has 70% stenosis; fairly small artery will treat medically; large dominant CX artery with mild disease, the OM1 branch has 70% ostial stenosis will treat medically; small nondominant right. Another cardiac catheterization on February 13, 2018 after having chest pain with negative troponin with stent deployment to the circumflex artery using Guerda 2.7515 mm, balloon angioplasty for the LAD in-stent restenosis then deployment of 2 additional stent in the LAD using Guerda 2.2528 and 2.523 mm. Patient had an abnormal stress test then cardiac catheterization done on June 26, 2020 showing subtotal occlusion in the LAD with balloon angioplasty to the full LAD body extending from the ostium to the distal LAD with multiple inflati on with excellent results, patent stent in the proximal circumflex artery and small nondominant right. Stress test was done in July 2021 showing extracardiac attenuation affecting the quality of the images with no significant ischemia or infarction, her stress score was 5, SDS 5, ejection fraction 67%. Cardiac catheterization was carried out on May 27, 2022 showing patent stent in the proximal, mid and distal LAD, small vessel disease distally otherwise nonobstructive disease 2D echo was done on July 30, 2021 showing normal LV size with EF 50 to 55%, mild mitral regurgitation, PA pressure 35 to 40 mmHg. 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 Mild shortness of breath, feeling better at this time. Continue to monitor Hypertension, maintained on amlodipine 10 mg daily, carvedilol 12.5 mg twice a day, hydrochlorothiazide 25 mg daily, losartan 100 mg daily. Better control blood pressure. Continue to monitor Hyperlipidemia, lipid profile was done on May 12, 2021 with total cholesterol 137, HDL 38, triglyceride 109, LDL 77. I will reevaluate lipid profile. Diabetes mellitus, followed and managed by primary care physician. Continue to monitor Hypothyroidism, followed and managed by primary care physician Moderate bilateral carotid stenosis, previously monitored by Dr. Cotter, most recent carotid duplex done in our office Apr 2021, continue to monitor. PAULA NUNN MD May 28, 2022 07:46
[2022-05-28 08:00] VITALS: BP_SYST 124; BP_SYST 157; BP_DIAS 58; BP_DIAS 67
[2022-05-28] MEDS: APIXABAN 2.5 MG (ELIQUIS) TABLET PO SCH (08:15)
[2022-05-28] MEDS: DRONEDARONE 400 MG TABLET PO SCH (08:15)
== END 2022-05-28 09:15 | disposition home or self-care (01) ==
LOC: EDUNIT# 19:00 → ER 19:01 → ICU 21:35
PROVIDERS: ADMIT Family Medicine; ATTEND Family Medicine
DX: I25.10 Atherosclerotic heart disease of native coronary artery without angina pectoris (principal); I48.0 Paroxysmal atrial fibrillation; I10 Essential (primary) hypertension; E78.5 Hyperlipidemia, unspecified; E11.9 Type 2 diabetes mellitus without complications; E03.9 Hypothyroidism, unspecified; I65.23 Occlusion and stenosis of bilateral carotid arteries
CPT/HCPCS: 71045; 80048; 80053; 83735 ×2; 84484 ×2; 85025 ×2; 85610; 93005; 93041; 93458; 99284; C1894; G0378; 36415